=== PATIENT | male | born 1960 | race Caucasian/White ===

== ENCOUNTER 2023-03-29 01:28 | Emergency (ER) | payer OTHER, SELFPAY ==
--- NOTE | ~2023-03-29 | XR_ITS ---
EXAMINATION: XR CHEST CLINICAL INFORMATION: Productive cough. COMPARISON: None available. TECHNIQUE: 2 views of the chest were obtained. FINDINGS: The cardiomediastinal silhouette is within normal limits. There is no focal lung consolidation or pleural effusion. The bony structures and soft tissues are unremarkable. XR/XR chest 2V IMPRESSION: No active cardiopulmonary disease.
[2023-03-29 01:36] VITALS: BP 147/89; PULSE 114; RESP 20; TEMP 36.7; O2SAT 96; BMI 27.3
[2023-03-29 02:02] VITALS: BP 130/83; PULSE 92; RESP 17; TEMP 36.8; O2SAT 97
[2023-03-29 02:12] LABS: COVID-19 Test Negative (Negative); IDNOW Serial# 08D9AD1C
[2023-03-29 02:17] VITALS: O2SAT 98
--- NOTE | 2023-03-29 02:22 | PC.NURSE ---
pt reports having a dry cough, sore throat since Sunday, pt change into hospital attire.
--- OUTSIDE RECORDS SUMMARY | 2023-03-29 02:36 | XMS_ITS | Continuity of Care Document ---
Author Name Unknown Organization [facility] Address [address] [place], [place] [address]jean frausto, [address] [place] [address]- Care Team Providers Care Record Press Tender Name Role Phone Not on Staff, PCP Primary Care Physician Unavail able Encounter [facility] Date(s): 02/21/23 - 03/23/23 [facility] [address] [place] [address] Drive, [address] [place], [place] [address] Attending Physician: Massimo Ram Admitting Physician: Admtr, Ar8 Referring Physician: Admtr, Ar8 Allergies, Adverse Reactions, Alerts Substance Reaction Severity Status Cats Active Pollen Active Immunizations Given and Recorded Vaccine Date Status Refusal Reason SARS-CoV-2 (COVID-19) Ad26 vaccine 1 12/22/20 Give n SARS-CoV-2 (COVID-19) Ad26 vaccine 12/22/20 Record ed tetanus/diphtheria/pertussis, acel(Tdap) 10/20/20 Given 1? Unknown: Resend to [facility]. Problem List Condition Confirmation Course Effective Dates Status H ealth Status Informant Alcohol dependence with withdrawal Confirmed Active Intraparenchymal hemorrhage of brain Confirmed Active Epididymitis Confirmed Active Subdural hematoma Confirmed Active Hypertension Confirmed Active Nicotine dependence Confirmed Active Scrotal pain Confirmed Active Frequent falls Confirmed Active Social History Social History Type Response Tobacco Use: 2 packs daily.. Sex Patient Care team information Care Team Personnel Name: Darcy Gonsalves RN Position: S RN Member Role: Primary Care Nurse Name: Nicole Sweeney RN Position: S RN Member Role: Primary Care Nurse Name: Elizabeth Sutherland RN Position: S RN Supv Member Role: Primary Care Nurse Name: Heather Keyes Position: S RN Member Role: Primary Care Nurse Name: Eri Velasquez Position: S RN Member Role: Primary Care Nurse Name: Kendra Ayala RN Position: [facility] RN Member Role: Primary Care Nurse Name: Dayanara Porter RN Position: [facility] RN Member Role: Primary Care Nurse Name: Dl Gibson RN Position: [facility] RN Member Role: Primary Care Nurse Name: Not on Staff, PCP Position: [facility] Physician (General Medicine) Member Role: PCP Name: Sharri Sosa RN Position: [facility] RN Member Role: Primary Care Nurse Name: Cristofer Augustine Position: [facility] RN Member Role: Primary Care Nurse Name: Rola Whittaker RN Position: [facility] RN Member Role: Primary Care Nurse Name: Sonam Morales RN Position: [facility] RN Member Role: Primary Care Nurse Name: Estelita Sigala RN Position: [facility] RN Member Role: Primary Care Nurse Name: Brianne Gamboa RN Position: [facility] RN Member Role: Primary Care Nurse Care Team Related Persons Name: COLE DIXON Address: [address] [address]
--- OUTSIDE RECORDS SUMMARY | 2023-03-29 02:37 | XMS_ITS | Continuity of Care Document ---
Author Name Unknown Organization [facility] Address [address] [place] [address] [address] frausto, [address] [place] [address]- Care Team Providers Care Senior Management Consultant Name Role Phone Not on Staff, PCP Primary Care Physician Unavail able Encounter [facility] Date(s): 10/31/22 - 11/30/[address], [address] [place], [place] [address] Attending Physician: AdmMassimo donohue Admitting Physician: Admtr, Ar8 Referring Physician: Admtr, Ar8 Allergies, Adverse Reactions, Alerts Substance Reaction Severity Status Cats Active Pollen Active Immunizations Given and Recorded Vaccine Date Status Refusal Reason SARS-CoV-2 (COVID-19) Ad26 vaccine 1 12/22/20 Give n SARS-CoV-2 (COVID-19) Ad26 vaccine 12/22/20 Record ed tetanus/diphtheria/pertussis, acel(Tdap) 10/20/20 Given 1? Unknown: Resend to [facility]. Medications acetaminophen 325 mg oral tablet 650 mg, 2, tablet, By Mouth, Every 6 hours, Refills 0, Maintenance, 10/23/22 15:49:00 EDT, Partial fill upon patient request if the prescription is for a schedule II opioid drug. Start Date: 10/23/22 Status: Ordered aspirin 81 mg oral capsule = 81 mg, By Mouth, Daily, # 30 capsule, 0 Refills, Maintenance, 09/29/22 13:10:00 EDT, Capsule, [facility], Partial fill upon patient request if the prescription is for a schedule II opioid drug., 162, cm, 09/29/22 11:15:00 EDT, Height,... Start Date: 09/29/22 Stop Date: 10/29/22 Status: Ordered Aspirin Tablet 81 mg, By Mouth, Daily, Refills 0, Maintenance, 10/23/22 15:52:00 EDT, Partial fill upon patient request if the prescription is for a schedule II opioid drug. Start Date: 10/23/22 Status: Ordered ceFAZolin 2 g injection = 2 Gm, IV Push, Every 8 hours, 0 Refills, Maintenance, 10/23/22 15:49:00 EDT, Injection, Partial fill upon patient request if the prescription is for a schedule II opioid drug. Start Date: 10/23/22 Status: Ordered cetirizine 1 mg/mL oral syrup 5 mL = 5 mg, By Mouth, Daily, # 50 mL, 0 Refills, Maintenance, 09/29/22 13:10:00 EDT, Syrup, [facility], Partial fill upon patient request if the prescription is for a schedule II opioid drug., 162, cm, 09/29/22 11:15:00 EDT, Height, 65,... Start Date: 09/29/22 Stop Date: 10/09/22 Status: Ordered docusate sodium 100 mg oral capsule 100 mg, 1, capsule, By Mouth, 2 times a day, # 28 capsule, Refills 0, Tot. Refills 0, Maintenance, 09/29/22 13:10:00 EDT, Route to Pharmacy Electronically, [facility], Partial fill uponpatient request if the prescription is for a schedu... Start Date: 09/29/22 Stop Date: 10/13/22 Status: Ordered Docusate Sodium Capsule 100 mg, 1, capsule, By Mouth, 2 times a day, Refills 0, Maintenance, 10/23/22 15:49:00 EDT, Partialfill upon patient request if the prescription is for a schedule II opioid drug. Start Date: 10/23/22 Status: Ordered folic acid 1 mg oral tablet 1 mg, 1, tablet, By Mouth, Daily, # 14 tablet, Refills 0, Tot. Refills 0, Maintenance, 09/29/22 13:10:00 EDT, Route to Pharmacy Electronically, [facility], Partial fill upon patient request if the prescription is for a schedule II opioid... Start Date: 09/29/22 Stop Date: 10/13/22 Status: Ordered folic acid 1 mg oral tablet 1 mg, 1, tablet, By Mouth, Daily, Refills 0, Maintenance, 10/23/22 15:49:00 EDT, Partial fill upon patient request if the prescription is for a schedule II opioid drug. Start Date: 10/23/22 Status: Ordered gabapentin 300 mg oral capsule 300 mg, 1, capsule, By Mouth, 3 times a day, Refills 0, Maintenance, 10/23/22 15:50:00 EDT, Partialfill upon patient request if the prescription is for a schedule II opioid drug. Start Date: 10/23/22 Status: Ordered lactulose 10 gm/15 ml oral syrup 30 mL = 20 Gm, By Mouth, 3 times a day, 0 Refills, Maintenance, 10/23/22 15:50:00 EDT, Syrup, Partial fill upon patient request if the prescription is for a schedule II opioid drug. Start Date: 10/23/22 Status: Ordered multivitamin Multiple Vitamins oral tablet 1 tablet, By Mouth, Daily, # 30 tablet, 0 Refills, Maintenance, 09/29/22 13:10:00 EDT, Tablet, [facility], Partial fill upon patient request if the prescription is for a schedule II opioid drug., 1 tablet By Mouth Daily,x30 days, 162, cm... Start Date: 09/29/22 Stop Date: 10/29/22 Status: Ordered Multivitamin Tablet 1 tablet, By Mouth, Daily, 0 Refills, Maintenance, 10/23/22 15:50:00 EDT, Tablet, Partial fill uponpatient request if the prescription is for a schedule II opioid drug. Start Date: 10/23/22 Status: Ordered Oxycodone See Instructions, 0 Refills, Maintenance, 10/31/22 14:51:00 EDT, Partial fill upon patient request if the prescription is for a schedule II opioid drug. Start Date: 10/31/22 Status: Ordered tiZANidine 4 mg oral tablet 4 mg, 1, tablet, By Mouth, Every 8 hours, # 21 tablet, Refills 0, Tot. Refills 0, Maintenance, 09/29/22 13:10:00 EDT, Route to Pharmacy Electronically, [facility], Partial fill upon patient request if the prescription is for a schedule I... Start Date: 09/29/22 Stop Date: 10/06/22 Status: Ordered Problem List Condition Confirmation Course Effective Dates Status H ealth Status Informant Intraparenchymal hemorrhage of brain Confirmed Active Social History Social History Type Response Tobacco Use: 2 packs daily.. Sex Patient Care team information Care Team Personnel Name: Nicole Sweeney RN Position: S RN Member Role: Primary Care Nurse Name: Heather Keyes Position: S RN Member Role: Primary Care Nurse Name: Eri Velasquez Position: S RN Member Role: Primary Care Nurse Name: Kendra Ayala RN Position: S RN Member Role: Primary Care Nurse Name: Tanya Howell RN Position: [facility] RN Member Role: Primary Care Nurse Name: Dayanara Porter RN Position: [facility] RN Member Role: Primary Care Nurse Name: Dl Gibson RN Position: [facility] RN Member Role: Primary Care Nurse Name: Not on Staff, PCP Position: [facility] Physician (General Medicine) Member Role: PCP Name: Sharri Sosa RN Position: [facility] RN Member Role: Primary Care Nurse Name: Cristofer Augustine Position: [facility] RN Member Role: Primary Care Nurse Name: Rola Whittaker RN Position: [facility] RN Member Role: Primary Care Nurse Name: Estelita Sigala RN Position: [facility] RN Member Role: Primary Care Nurse Name: Brianne Gamboa RN Position: [facility] RN Member Role: Primary Care Nurse Care Team Related Persons Name: COLE DIXON Address: [address] [address]
--- OUTSIDE RECORDS SUMMARY | 2023-03-29 02:37 | XMS_ITS | Continuity of Care Document ---
Author Name Unknown Organization [facility] Address [address] [place] [address] [address] [place] [address]- Care Team Providers Care Bareback Rider Name Role Phone Samuel Cruz MD Primary Care Physician Encounter [facility] Date(s): 05/10/22 - 06/23/[address] [place], [place] [address] Attending Physician: Clair TURNER, Deepak Dubois Allergies, Adverse Reactions, Alerts Substance Reaction Severity Status Cats Active Pollen Active Immunizations Given and Recorded Vaccine Date Status Refusal Reason SARS-CoV-2 (COVID-19) Ad26 vaccine 1 12/22/20 Give n tetanus/diphtheria/pertussis, acel(Tdap) 10/20/20 Given 1? Unknown: Resend to [facility]. Medications gabapentin 100 mg oral capsule 100 mg, 1, capsule, By Mouth, 3 times a day, # 42 capsule, Refills 0, Tot. Refills 0, Maintenance, 05/10/22 9:04:00 EST, Route to Pharmacy Electronically, [facility], Partial fill upon patient request if the prescription is for a schedul... Start Date: 05/10/22 Stop Date: 05/24/22 Status: Ordered Ibuprofen 800 mg, By Mouth, taking for rib pain, Refills 0, Maintenance, 05/31/22 12:20:00 EST, Partial fill upon patient request if the prescription is for a schedule II opioid drug. Start Date: 05/31/22 Status: Ordered Problem List Condition Confirmation Course Effective Dates Status H ealth Status Informant Intraparenchymal hemorrhage of brain Confirmed Active Social History Social History Type Response Tobacco Use: 2 packs daily.. Sex Patient Care team information Care Team Personnel Name: Eri Velasquez Position: S RN Member Role: Primary Care Nurse Name: Samuel Cruz MD Position: [facility] Primary Care Physician Member Role: PCP Address: Address: [address] [facility] [facility], [address] [facility], [place] [address]- Care Team Related Persons Name: COLE DIXON Address: [address] [address] [place] [id number]
--- OUTSIDE RECORDS SUMMARY | 2023-03-29 02:37 | XMS_ITS | Continuity of Care Document ---
Author Name Unknown Organization [facility] ter Address [address] [place] [id number]- Care Team Providers Care Form Coverer Name Role Phone Not on Staff, PCP Primary Care Physician Unavail able Encounter [facility] Date(s): 10/04/22 - 10/23/[address] [address]- Encounter Diagnosis Head injury(Final) - 10/04/22 Scalp laceration(Final) - 10/04/22 Discharge Disposition: A-Transfer SNF Attending Physician: Rosi Harper MD Admitting Physician: Rosi Harper MD Referring Physician: Not on Staff, Referring MD Allergies, Adverse Reactions, Alerts No Known Medication Allergies Substance Reaction Severity Status Pollen Active Immunizations Given and Recorded Vaccine Date Status Refusal Reason SARS-CoV-2 (COVID-19) Ad26 vaccine 12/22/20 Record ed Medications acetaminophen 325 mg oral tablet 650 mg, 2, tablet, By Mouth, Every 6 hours, Refills 0, Maintenance, 10/23/22 15:49:00 EDT, Partial fill upon patient request if the prescription is for a schedule II opioid drug. Start Date: 10/23/22 Status: Ordered Aspirin Tablet 81 mg, By [...] opioid drug. Start Date: 10/23/22 Status: Ordered Docusate Sodium Capsule 100 mg, [...] gabapentin 300 mg oral capsule 300 mg, Capsule, By Mouth, 10/23/22 15:00:00 EDT Start Date: 10/23/22 Stop Date: 10/23/22 Status: Completed gabapentin 300 mg oral capsule 300 mg, [...] opioid drug. Start Date: 10/23/22 Status: Ordered Multivitamin Tablet 1 tablet, By Mouth, Daily, 0 Refills, Maintenance, 10/23/22 15:50:00 EDT, Tablet, Partial fill uponpatient request if the prescription is for a schedule II opioid drug. Start Date: 10/23/22 Status: Ordered oxyCODONE 5 mg oral tablet 5 mg, Tablet, By Mouth, Every 4 hours, PRN for Pain , Severe, Routine, 10/18/22 7:39:00 EDT Start Date: 10/18/22 Stop Date: 10/25/22 Status: Ordered oxyCODONE 5 mg oral tablet 5 mg, 1, tablet, By Mouth, Every 4 hours, PRN, # 10 tablet, Refills 0, Tot. Refills 0, Acute 10/29/22 15:51:00 EDT, Pain , Severe, 10/23/22 15:50:00 EDT, Print Requisition, Partial fill upon patient request if the prescription is for a schedule II opi... Start Date: 10/23/22 Stop Date: 10/29/22 Status: Ordered Results Orders for Microbiology Reports Name Date Blood Culture 10/17/22 Blood Culture #2 10/17/22 Blood Culture 10/16/22 Blood Culture 10/16/22 Blood Culture #2 10/16/22 Anaerobic Culture (ANAEROBIC CULTURE) 10/14/22 Tissue Culture w/ Gram Smear (TISSUE/BIO PSY CULT.) 10/14/22 Anaerobic Culture (ANAEROBIC CULTURE) 10/14/22 Sterile Body Fluid Culture W/ Gram Smear (STERILE FLUID CULT.) 10/14/22 Blood Culture 10/14/22 Microbiology Reports (Most Recent Ten) TEST:Blood Culture, Second Order STATUS:Auth (Verified) BODY SITE: SOURCE:Blood COLLECTED DATE/TIME:10/17/22 9:21 AM Blood Culture, Second Order SPECIMEN DESCRIPTION : BLOOD R ARM SPECIAL REQUESTS : NONE CULTURE : NO GROWTH 5 DAYS. REPORT STATUS : FINAL 10/22/2022 TEST:Blood Culture STATUS:Auth (Verified) BODY SITE: SOURCE:Blood COLLECTED DATE/TIME:10/17/22 7:11 AM Blood Culture SPECIMEN DESCRIPTION : BLOOD right hand SPECIAL REQUESTS : NONE CULTURE : NO GROWTH 5 DAYS. REPORT STATUS : FINAL 10/22/2022 TEST:Blood Culture STATUS:Auth (Verified) BODY SITE: SOURCE:Blood COLLECTED DATE/TIME:10/16/22 7:14 PM Blood Culture SPECIMEN DESCRIPTION : BLOOD RIGHT HAND SPECIAL REQUESTS : NONE CULTURE : NO GROWTH 5 DAYS. REPORT STATUS : FINAL 10/21/2022 TEST:Blood Culture, Second Order STATUS:Auth (Verified) BODY SITE: SOURCE:Blood COLLECTED DATE/TIME:10/16/22 2:00 AM Blood Culture, Second Order SPECIMEN DESCRIPTION : BLOOD RIGHT ARM SPECIAL REQUESTS : NONE CULTURE : NO GROWTH 5 DAYS. REPORT STATUS : FINAL 10/21/2022 TEST:Blood Culture STATUS:Auth (Verified) BODY SITE: SOURCE:Blood COLLECTED DATE/TIME:10/16/22 1:21 AM Blood Culture SPECIMEN DESCRIPTION : BLOOD RIGHT ARM SPECIAL REQUESTS : NONE CULTURE : NO GROWTH 5 DAYS. REPORT STATUS : FINAL 10/21/2022 TEST:Anaerobic Culture STATUS:Auth (Verified) BODY SITE: SOURCE:TISSUE1 COLLECTED DATE/TIME:10/14/22 9:10 AM Anaerobic Culture SPECIMEN DESCRIPTION : TISSUE SPECIAL REQUESTS : NONE CULTURE : NO ANAEROBES ISOLATED REPORT STATUS : FINAL 10/16/2022 TEST:Tissue/Biopsy Culture STATUS:Auth (Verified) BODY SITE: SOURCE:TISSUE1 COLLECTED DATE/TIME:10/14/22 9:10 AM Tissue/Biopsy Culture SPECIMEN DESCRIPTION : TISSUE SPECIAL REQUESTS : NONE GRAM STAIN : 2+ WHITE BLOOD CELLS 1+ TISSUE CELLS NO ORGANISMS SEEN CULTURE : 3+ STAPHYLOCOCCUS AUREUS. This isolate was identified using Maldi-TOF system These AST results were performed on the Microscan ID and AST system CRITICAL VALUE CALLED AND VERIFIED BY READBACK FOR: [place] [id number] AT SW5 BY TECH 27 OB 10/15/22 AT 1025. REPORT STATUS : FINAL 10/16/2022 ORGANISM 3+ STAPHYLOCOCCUS AUREUS. This isolate was identified using Maldi-TOF system These AST results were performed on the Microscan ID and AST system METHOD MIN. INHIB. CONC. (MCG/ML) CIPROFLOXACIN SUSCEPTIBLE CLINDAMYCIN SUSCEPTIBLE ERYTHROMYCIN SUSCEPTIBLE LEVOFLOXACIN SUSCEPTIBLE OXACILLIN SUSCEPTIBLE PENICILLIN RESISTANT RIFAMPIN SUSCEPTIBLE RIFAMPIN RIFAMPIN SHOULD NOT BE USED ALONE FOR ANTIMICROBIAL RIFAMPIN THERAPY. TETRACYCLINE SUSCEPTIBLE TRIMETH/SULFAMETHOX SUSCEPTIBLE VANCOMYCIN SUSCEPTIBLE TEST:Anaerobic Culture STATUS:Auth (Verified) BODY SITE: SOURCE:FLUID COLLECTED DATE/TIME:10/14/22 9:00 AM Anaerobic Culture SPECIMEN DESCRIPTION : FLUID SPECIAL REQUESTS : NONE CULTURE : NO ANAEROBES ISOLATED REPORT STATUS : FINAL 10/19/2022 TEST:Sterile Fluid Culture STATUS:Auth (Verified) BODY SITE: SOURCE:FLUID COLLECTED DATE/TIME:10/14/22 9:00 AM Sterile Fluid Culture SPECIMEN DESCRIPTION : FLUID SPECIAL REQUESTS : NONE GRAM STAIN : 2+ WHITE BLOOD CELLS 1+ TISSUE CELLS NO ORGANISMS SEEN CULTURE : 2+ STAPHYLOCOCCUS AUREUS. This isolate was identified using Maldi-TOF system These AST results were performed on the Microscan ID and AST system CRITICAL VALUE CALLED AND VERIFIED BY READBACK FOR: [place] [id number] AT SW5 BY TECH 27 ON 10/15/22 AT 1030. REPORT STATUS : FINAL 10/16/2022 ORGANISM 2+ STAPHYLOCOCCUS AUREUS. This isolate was identified using Maldi-TOF system These AST results were performed on the Microscan ID and AST system METHOD MIN. INHIB. CONC. (MCG/ML) CIPROFLOXACIN SUSCEPTIBLE CLINDAMYCIN SUSCEPTIBLE ERYTHROMYCIN SUSCEPTIBLE LEVOFLOXACIN SUSCEPTIBLE OXACILLIN SUSCEPTIBLE PENICILLIN RESISTANT RIFAMPIN SUSCEPTIBLE RIFAMPIN RIFAMPIN SHOULD NOT BE USED ALONE FOR ANTIMICROBIAL RIFAMPIN THERAPY. TETRACYCLINE SUSCEPTIBLE TRIMETH/SULFAMETHOX SUSCEPTIBLE VANCOMYCIN SUSCEPTIBLE TEST:Blood Culture STATUS:Auth (Verified) BODY SITE: SOURCE:Blood COLLECTED DATE/TIME:10/14/22 3:03 AM Blood Culture SPECIMEN DESCRIPTION : BLOOD RT ARM SPECIAL REQUESTS : CRITICAL VALUE CALLED AND VERIFIED BY READBACK FOR: GRAM POSITIVE COCCI CALLED TO [id number] [facility] ON 10/15/22 0056 BY BIBA [employer] CULTURE : STAPHYLOCOCCUS AUREUS. These AST results were performed on the Microscan ID and AST system S. aureus was identified by multiplex PCR. mecA NOT detected. The absence of the mecA gene is associated with susceptibility to methicillin (MSSA). REPORT STATUS : FINAL 10/17/2022 ORGANISM STAPHYLOCOCCUS AUREUS. These AST results were performed on the Microscan ID and AST system METHOD MIN. INHIB. CONC. (MCG/ML) CIPROFLOXACIN SUSCEPTIBLE CLINDAMYCIN SUSCEPTIBLE ERYTHROMYCIN SUSCEPTIBLE LEVOFLOXACIN SUSCEPTIBLE OXACILLIN SUSCEPTIBLE PENICILLIN RESISTANT RIFAMPIN SUSCEPTIBLE RIFAMPIN RIFAMPIN SHOULD NOT BE USED ALONE FOR ANTIMICROBIAL RIFAMPIN THERAPY. TETRACYCLINE SUSCEPTIBLE TRIMETH/SULFAMETHOX SUSCEPTIBLE VANCOMYCIN SUSCEPTIBLE Radiology Reports (Most Recent Ten) * Exam Date Time Procedure Performing Provider Status 10/22/22 11:52 AM US Doppler Ext Lower Venous Bilat Nicole Sanchez; Auth (Verified) Notes: (US Doppler Ext Lower Venous Bilat) Reason For Exam: pain;Pain/Tenderness Extremities RESULT: US Doppler Ext Lower Venous Bilat US Doppler Ext Lower Venous Bilat Reason: Pain Tenderness Extremities; pain; Clinical Question(s): Other: COMPARISON: None IMAGING TECHNIQUE: Ultrasound of the veins from the groin through the calf was performed using grayscale, color, and spectral Doppler ultrasound assessing for complete compressibility and normal flowcharacteristics. FINDINGS: RIGHT LOWER EXTREMITY: Common femoral vein: Patent. No thrombosis. Femoral vein: Patent. No thrombosis. Popliteal vein: Patent. No thrombosis. Gastrocnemius veins: The visualized portions are patent without evidence of thrombosis. Peroneal veins: The visualized portions are patent without evidence of thrombosis. Posterior tibial veins: The visualized portions are patent without evidence of thrombosis. LEFT LOWER EXTREMITY: Common femoral vein: Patent. No thrombosis. Femoral vein: Patent. No thrombosis. Popliteal vein: Patent. No thrombosis. Gastrocnemius veins: The visualized portions are patent without evidence of thrombosis. Peroneal veins: The visualized portions are patent without evidence of thrombosis. Posterior tibial veins: The visualized portions are patent without evidence of thrombosis. OTHER FINDINGS: None. IMPRESSION: No evidence of deep venous thrombosis. WSN: [id number] Ordering Physician: David Collado Dictated By: Juan Vivas MD Dictated Date/Time: 10/22/22 12:03 p Reviewed By: Juan Vivas MD Signed By: Juan Vivas MD Signed Date/Time: 10/22/22 12:03 pm Transcribed By: JACKY Transcribed Date/Time: 10/22/22 12:02 pm * Exam Date Time Procedure Performing Provider Status 10/21/22 6:55 AM Chest 2 Views Frontal and Lat Ilene Alexander; Auth (Verified) Notes: (Chest 2 Views Frontal and Lat) Reason For Exam: Postop RESULT: Chest 2 Views Frontal and Lat Chest 2 Views Frontal and Lat Reason: Postop; Clinical Question(s): Pleural Effusion COMPARISON: Multiple prior chest x-rays, the most recent of which is dated 10/20/2022. FINDINGS: LINES AND TUBES: There is a right PICC with tip in the proximal SVC. LUNGS AND PLEURA: Small left pleural effusion with adjacent left lower lobar opacity is not significantly changed. Nopneumothorax. HEART, MEDIASTINUM AND IDALIA: Heart is normal in size. Normal mediastinal and hilar contour. BONES AND SOFT TISSUES: No acute abnormality. Mild degenerative changes seen in the spine. IMPRESSION: 1. Right PICC with tip in the proximal SVC. 2. Otherwise no change with small left pleural effusion with adjacent density which may reflect atelectasis or pneumonia. WSN: [id number] Ordering Physician: Pat Rome Dictated By: Shwetha Thomson MD Dictated Date/Time: 10/21/22 7:38 am Reviewed By: Shwetha Thomson MD Signed By: Shwetha Thomson MD Signed Date/Time: 10/21/22 7:38 am Transcribed By: JACKY Transcribed Date/Time: 10/21/22 7:33 am * Exam Date Time Procedure Performing Provider Status 10/20/22 6:34 AM Chest 2 Views Frontal and Lat Vilma Lu; Auth (Verified) Notes: (Chest 2 Views Frontal and Lat) Reason For Exam: Postop RESULT: Chest 2 Views Frontal and Lat Chest 2 Views Frontal and Lat Reason: Postop; Clinical Question(s): Pleural Effusion COMPARISON: 10/19/2022 FINDINGS: Grossly no change in the right arm PICC line which is difficult to see over the mediastinum. The left thoracostomy tube has been removed. Left basilar and lingular consolidation is stable. IMPRESSION: Left thoracostomy tube has been removed. No evidence of pneumothorax. Left pleural-parenchymal disease hasn't changed WSN: [id number] Ordering Physician: Shwetha Panda Dictated By: Juan Keene MD Dictated Date/Time: 10/20/22 8:45 am Reviewed By: Juan Keene MD Signed By: Juan Keene MD Signed Date/Time: 10/20/22 8:45 am Transcribed By: JACKY Transcribed Date/Time: 10/20/22 8:42 am * Exam Date Time Procedure Performing Provider Status 10/19/22 6:01 AM Chest 2 Views Frontal and Lat Antoni Lu (Verified) Notes: (Chest 2 Views Frontal and Lat) Reason For Exam: Postop RESULT: Chest 2 Views Frontal and Lat Chest 2 Views Frontal and Lat Reason: Postop; Clinical Question(s): Pleural Effusion COMPARISON: Several priors most recently 10/18/2022 FINDINGS: LINES AND TUBES: Interval removal of the more cephalad of the 2 left chest tubes. Interval placement of a right PICCline, tip in region of SVC. LUNGS AND PLEURA: Continued opacity at the left base due to a combination of lower lobe atelectasis and pleural effusion. Right lung pleural space remain clear. No pneumothorax. HEART, MEDIASTINUM AND IDALIA: Heart is normal in size. Normal mediastinal and hilar contour. BONES AND SOFT TISSUES: Multiple bilateral rib fractures again noted. IMPRESSION: 1. Interval removal of one of the 2 left chest tubes without evidence for pneumothorax. Stable pleural/parenchymal changes in the left lower hemithorax. 2. Interval placement right PICC line with tip in SVC. WSN: [id number] Ordering Physician: Shwetha Panda Dictated By: Porfirio Rich MD Dictated Date/Time: 10/19/22 11:28 a Reviewed By: Porfirio Rich MD Signed By: Porfirio Rich MD Signed Date/Time: 10/19/22 11:28 am Transcribed By: JACKY Transcribed Date/Time: 10/19/22 11:22 am * Exam Date Time Procedure Performing Provider Status 10/18/22 1:01 PM Modified Barium Swal low W/ Speech (Radio Liz Bourgeois; Auth (Verified) Notes: (Modified Barium Swallow W/ Speech (Radio) Reason For Exam: Aspiration RESULT: Modified Barium Swallow W/ Speech (Radio Modified Barium Swallow W/ Speech (Radio WITH SPEECH PATHOLOGY CLINICAL INDICATION: Aspiration; Clinical Question(s): Aspiration; Modified Barium Swallow W Speech(Radiology) Prep COMPARISON: None Technique: Lateral cine-videofluoroscopy was performed during the oral administration of various barium containing consistencies, as described below. Fluoroscopic imaging provided by Amy Duvall CNP Pulsed fluoroscopy time: 2.3 minutes Dose Area Product (DAP): 116.7 uGy*m2 Findings: Applesauce, pudding, nectar, mixed fruit/juice and thin barium consistencies were tested. Applesauce: No laryngeal penetration or subglottic aspiration. Pudding: No laryngeal penetration or subglottic aspiration Sorgho: No laryngeal penetration or subglottic aspiration Mixed fruit and juice: No laryngeal penetration or subglottic aspiration Thin barium: There was laryngeal penetration of thin liquids, with deep penetration noted on at least one swallow. Vallecular pooling of thin liquids with penetration noted upon prompted attempts to clear the residuals. No aspiration of thin liquids. IMPRESSION: Laryngeal penetration of thin liquids as described. For dietary concerns or recommendations, please refer to speech pathologist report. By undersigning and finalizing the report, the attending radiologist confirms he/she has personallyreviewed and interpreted the images and agrees with the description of the findings. I have personally reviewed the images and I agree with this report. WSN: [id number] Ordering Physician: August Dictated By: Allyson Duvall NP Dictated Date/Time: 10/19/22 11:38 a Reviewed By: Shwetha Thomson MD Signed By: Shwetha Thomson MD Signed Date/Time: 10/19/22 11:43 am Transcribed By: JACKY Transcribed Date/Time: 10/18/22 12:06 pm * Exam Date Time Procedure Performing Provider Status 10/18/22 6:01 AM Chest 2 Views Frontal and Lat Simona Yoder; Auth (Verified) Notes: (Chest 2 Views Frontal and Lat) Reason For Exam: Other: RESULT: Chest 2 Views Frontal and Lat Chest 2 Views Frontal and Lat Reason: Other:; Clinical Question(s): Trauma COMPARISON: 10/17/2022 FINDINGS: LINES AND TUBES: Unchanged left apically directed chest tubes. LUNGS AND PLEURA: Change small left pleural effusion and associated atelectasis. Right hemithorax is clear. No pneumothorax. HEART, MEDIASTINUM AND IDALIA: Unchanged. BONES AND SOFT TISSUES: Unchanged bilateral minimally displaced rib fractures. IMPRESSION: Stable examination. I have personally reviewed the images and I agree with this report. WSN: [id number] Ordering Physician: Shwetha Panda Dictated By: Juve Moran DO Dictated Date/Time: 10/18/22 10:53 a Reviewed By: Marco Nye MD Signed By: Marco Nye MD Signed Date/Time: 10/18/22 10:58 am Transcribed By: JACKY Transcribed Date/Time: 10/18/22 9:28 am * Exam Date Time Procedure Performing Provider Status 10/17/22 12:[address] Chest W/ Contrast Oxana Snyder; Auth (Verified) Notes: (CT Chest W/ Contrast) Reason For Exam: Infection RESULT: CT Chest W/ Contrast CT Chest W/ Contrast INDICATION: Reason: Infection; Clinical Question(s): Abscess Empyema; Order Comment: TECHNIQUE: Helical CT scan of the chest with IV contrast, formatted in 3 planes. 75 cc of [id number] was administered intravenously. Weight-based protocol was performed using automatic exposure control. CTDIvol Body: 5.70 mGy, DLP Body: 223 mGy*cm. COMPARISON: CT chest with contrast 10/13/2022. FINDINGS: Paint Pourer view findings, lines and tubes: There are 2 apically directed left large bore pleural catheter is Trachea and airways: There is a moderate amount of debris within the left lower lobe bronchi with multifocal areas of airway plugging. There is resultant left lower lobe collapse. Lungs and pleura: Complete consolidation of the left lower lobe, unchanged from the prior exam. Hasbeen slight improved aeration of the left upper lobe and lingula. A small amount of ill-defined atelectasis and consolidation involving the inferior lingula remains. Trace-small left hydropneumothorax with a small volume of loculated fluid along the posteromedial margin and a few tiny punctate fociof gas within the fluid (26/201). There are also a few small locules along the left inferolateral hemithorax (61/201). No abnormal pleural enhancement to suggest empyema. Mild background centrilobular emphysema. No focal consolidation involving the right lung. Minimal scarring or atelectasis in the medial right upper lobe. Mediastinum and idalia: No mass or hematoma. Similar appearance of increased number of mediastinal and left hilar lymph nodes which are most likely reactive these include a 1.1cm subcarinal lymph node (46/201). No esophageal abnormality. Heart: Heart is at the upper limits of normal for size. No pericardial effusion. Aorta: Mild vascular calcification but no aneurysm. Four-vessel aortic arch, normal variant. Pulmonary arteries: Normal caliber. No evidence of pulmonary embolism on this study performed without angiographic technique. Chest wall soft tissues: Scattered areas of soft tissue gas in the left lateral chest wall, though decreased from the prior study. No abnormal fluid collection or abscess. Diaphragm: Intact. Upper abdomen: No significant abnormality. Bones: Unchanged. Duration and distribution of bilateral rib fractures involving ribs 3-10 on the left and 5-12 subacute fractures on the right, with an acute fracture of the posterior right eighth rib. Old healed right mid clavicle fracture. IMPRESSION: 1. Decreased now trace-small volume left hydropneumothorax. No evidence of empyema. 2. Persistent left lower lobe collapse with significant debris within the left lower lobe bronchi. Consider further assessment with bronchoscopy. 3. Improved aeration of the left upper lobe and lingula with a small amount of residual atelectasisin the inferior lingula and dependent portions of the left upper lobe. 4. Mild background centrilobular emphysema. 5. Decreased left lateral chest wall soft tissue emphysema. 6. No interval change in multiple bilateral rib fractures. WSN: [id number] Ordering Physician: Shwetha Panda Dictated By: David Navarro MD Dictated Date/Time: 10/17/22 1:29 pm Reviewed By: David Navarro MD Signed By: David Navarro MD Signed Date/Time: 10/17/22 1:29 pm Transcribed By: JACKY Transcribed Date/Time: 10/17/22 1:11 pm * Exam Date Time Procedure Performing Provider Status 10/17/22 6:13 AM Chest 2 Views Frontal and Lat Simona Yoder; Auth (Verified) Notes: (Chest 2 Views Frontal and Lat) Reason For Exam: Other: RESULT: Chest 2 Views Frontal and Lat Chest 2 Views Frontal and Lat REASON: Trauma COMPARISON: Multiple priors, most recent from 10/16/[address] chest from 10/13/22. FINDINGS: LINES AND TUBES: Unchanged 2 apically oriented left chest tubes. LUNGS AND PLEURA: Small left pleural effusion with overlying atelectasis. No focal consolidation. HEART, MEDIASTINUM AND IDALIA: Heart is normal in size. Normal mediastinal and hilar contour. BONES AND SOFT TISSUES: Unchanged subcutaneous emphysema along the left chest wall. Unchanged chronic appearing right posterior sixth, and seventh rib fractures. Unchanged chronic appearing distal right clavicular fracture.Acute mildly displaced left posterior third, fourth, fifth, sixth, seventh rib fractures. These arebetter visualized on the CT chest from 10/13/2022. IMPRESSION: 1. Unchanged left pleural effusion with left lower lobe atelectasis/resolving contusion. 2. Unchanged multiple left rib fractures and chronic right rib fractures, better visualized on the CT chest. I have personally reviewed the images and I agree with this report. WSN: [id number] Ordering Physician: Courtney Smith Dictated By: Roxanna Grimm MD Dictated Date/Time: 10/17/22 11:20 a Reviewed By: Martinez Barajas MD Signed By: Martinez Barajas MD Signed Date/Time: 10/17/22 11:25 am Transcribed By: JACKY Transcribed Date/Time: 10/17/22 10:57 am * Exam Date Time Procedure Performing Provider Status 10/16/22 5:56 AM Chest 2 Views Frontal and Lat Simona Yoder; Auth (Verified) Notes: (Chest 2 Views Frontal and Lat) Reason For Exam: Rib fx f/u ?pneumo;Other: RESULT: Chest 2 Views Frontal and Lat Chest 2 Views Frontal and Lat REASON: Rib fx f u pleural effusion and Pneumothorax COMPARISON: Multiple priors, most recent 10/15/2022. CT chest 10/13/2022. FINDINGS: LINES AND TUBES: Two left apically directed chest tubes are unchanged. LUNGS AND PLEURA: Unchanged loculated left effusion. Left apical scarring with probable trace pneumothorax, decreasedfrom 10/13/2022. Right lung is clear. No pleural effusion or pneumothorax. HEART, MEDIASTINUM AND IDALIA: Heart is normal in size. Aorta is mildly calcified. BONES AND SOFT TISSUES: Unchanged mildly displaced left rib fractures. Unchanged mild left chest wall soft tissue emphysema. IMPRESSION: No significant change. I have personally reviewed the images and I agree with this report. WSN: [id number] Ordering Physician: Carlitos Hayes Dictated By: Mary Hernandez DO Dictated Date/Time: 10/16/22 9:57 am Reviewed By: Leodan Angulo MD Signed By: Leodan Angulo MD Signed Date/Time: 10/16/22 10:02 am Transcribed By: JACKY Transcribed Date/Time: 10/16/22 9:57 am * Exam Date Time Procedure Performing Provider Status 10/15/22 6:53 AM Chest 2 Views Frontal and Lat Nicole Munoz; Otis (Verified) Notes: (Chest 2 Views Frontal and Lat) Reason For Exam: Postop RESULT: Chest 2 Views Frontal and Lat Chest 2 Views Frontal and Lat Reason: Postop; Clinical Question(s): Pleural Effusion COMPARISON: Multiple prior chest x-rays, the most recent of which is dated 10/14/2022. FINDINGS: LINES AND TUBES: 2 apically oriented left chest tubes are seen. LUNGS AND PLEURA: Trace left pleural fluid remains with left basilar density unchanged. No pneumothorax. HEART, MEDIASTINUM AND IDALIA: Heart is normal in size. Normal mediastinal and hilar contour. BONES AND SOFT TISSUES: Left rib fractures are again seen. Healed deformity of multiple right ribs and chronic deformity right clavicle. Subcutaneous emphysema seen along the left chest wall. IMPRESSION: Trace left pleural effusion with unchanged left basilar density which may reflect atelectasis or contusion. No pneumothorax. WSN: [id number] Ordering Physician: Pat Rome Dictated By: Shwetha Thomson MD Dictated Date/Time: 10/15/22 7:46 am Reviewed By: Shwetha Thomson MD Signed By: Shwetha Thomson MD Signed Date/Time: 10/15/22 7:46 am Transcribed By: JACKY Transcribed Date/Time: 10/15/22 7:38 am Vital Signs Most recent to oldest [Reference Range]: 1 2 3 Height 163 cm (10/23/22 2:55 PM) 163 cm (10/23/22 11:44 AM) 163 cm (10/23/22 4:44 AM) Weight 55.1 kg (10/17/22 2:00 AM) 59.8 kg (10/14/22 7:09 AM) 59.8 kg (10/09/22 6:00 AM) Oxygen Saturation [94-100 %] 96 % (10/23/22 2:55 PM) 97 % (10/23/22 11:44 AM) 97 % (10/23/22 8:00 AM) Pulse Rate [55-90 bpm] 111 bpm *H* (10/23/22 2:55 PM) 103 bpm *H* (10/23/22 11:44 AM) 106 bpm *H* (10/23/22 8:00 AM) Body Mass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 and Lat 10/04/2022 20:[address] Head/Brain W/O Contrast CT Head/Brain W/O Contrast CT Chest W/ Contrast CT Chest W/ Contrast CT Cervical Spine W/O Contrast CT Cervical Spine W/O Contrast CT Abd/Pelvis W/ IV Contrast Only CT Abd/Pelvis W/ IV Contrast Only 10/04/2022 20:32 EDT Chest Portable XR Chest Portable . US Doppler Ext Lower Venous Bilat Event Date: 10/22/2022 11:52:51 EDT Updated: 10/22/2022 12:06 EDT US Doppler Ext Lower Venous Bilat This document has an image Reason For Exam pain;Pain/Tenderness Extremities RESULT: US Doppler Ext Lower Venous Bilat US Doppler Ext Lower Venous Bilat Reason: Pain Tenderness Extremities; pain; Clinical Question(s): Other: COMPARISON: None IMAGING TECHNIQUE: Ultrasound of the veins from the groin through the calf was performed using grayscale, color, and spectral Doppler ultrasound assessing for complete compressibility and normal flowcharacteristics. FINDINGS: RIGHT LOWER EXTREMITY: Common femoral vein: Patent. No thrombosis. Femoral vein: Patent. No thrombosis. Popliteal vein: Patent. No thrombosis. Gastrocnemius veins: The visualized portions are patent without evidence of thrombosis. Peroneal veins: The visualized portions are patent without evidence of thrombosis. Posterior tibial veins: The visualized portions are patent without evidence of thrombosis. LEFT LOWER EXTREMITY: Common femoral vein: Patent. No thrombosis. Femoral vein: Patent. No thrombosis. Popliteal vein: Patent. No thrombosis. Gastrocnemius veins: The visualized portions are patent without evidence of thrombosis. Peroneal veins: The visualized portions are patent without evidence of thrombosis. Posterior tibial veins: The visualized portions are patent without evidence of thrombosis. OTHER FINDINGS: None. IMPRESSION: No evidence of deep venous thrombosis. WSN: [id number] Ordering Physician: David Collado Signature Line Dictated By: Juan Vivas MD Dictated Date/Time: 10/22/22 12:03 p Reviewed By: Juan Vivas MD Signed By: Juan Vivas MD Signed Date/Time: 10/22/22 12:03 pm Transcribed By: CSDionisio Transcribed Date/Time: 10/22/22 12:02 pm US Doppler Ext Lower Venous Bilat Discharge Plan Discharge Disposition Discharge: Rehab. * Sydney Beavers: PERFORM, SIGN, VERIFY Event Display: Case Management Discharge Plan Authored Date: [id number] Patient: HALLIE DIXON Age: 62 years Sex: Male : 1960 Associated Diagnoses: None Author: Sydney Beavers Discharge Plan Case Management Discharge Plan : Case Management Discharge Plan Data 10/23/2022 15:27 EDT Discharge Level of Care at Discharge alf facility Discharge Nursing Homes/Rehab Facilities [facility] Discharge Transportation Arranged [facility] [address] [place], [place] [id number] [phone] Discharge Arranged Transport Date/Time 10/17/2022 17:00 Mode of Transportation Arranged Chair Van Name of Person Notified of Transfer DC Plan delivered to pt at bedside * Brianne Gamboa RN: PERFORM Event Display: Patient Education/Instruction Authored Date: [id number] Inpatient Adult Discharge Instructions [address] [address] Name: HALLIE DIXON : 1960 Visit: 10/04/2022 21:58:00 Current Date: 10/23/2022 17:03 Account: [id number] Inpatient Adult Discharge Instructions We would like to thank you for allowing us to assist you with your healthcare needs. The following includes patient education materials and information regarding your injury/illness. Our entire staffstrives to provide an excellent experience for our patients and their families. PLEASE ENSURE YOU FOLLOW-UP PER THE INSTRUCTIONS BELOW! ?? YOUR OPINION IS IMPORTANT TO US! Please complete the survey you may receive by mail or email. Your feedback will be used to make improvements to the healthcare experiences of our patients and their families. Surveys are administered by [employer] ?? If further treatment with your primary care physician or another doctor is recommended, it is important for you to keep the appointment. Call your primary care physician or return to the Emergency Department immediately if your condition worsens, fails to improve, or new symptoms develop. If you need to find a doctor, you can call [facility] for a referral at [phone] or toll free at [phone]) or log in to [email or web address] medical centerSimalaya.. ?? You can view and manage your care through the patient portal or by using a health care medhat of your choosing. [email or web address] is a website that allows you to securely view your medical information including your hospital discharge summary, office visit summaries, medications and follow-up visits. You can also request appointments, renew medications, and request access to your medical information using a health care medhat of your choosing, or just ask a question. You can enroll at [email or web address] or register during your next office visit. You have been discharged from [facility], Patient Care Unit: SW6. If you have any questions regarding these instructions after you leave, please call us and we will be happy to assist you. [facility] Your Care Team Attending Physician Meredith WEST, Rosi Watson Consulting Providers Michael WEST, Melissa Nichole; Dale WEST, Kendra; Kody WEST, Ashley Discharging Providers Tobias SILVA, David Welch Reason for Admission MSSA Your Diagnosis Head injury Scalp laceration Multiple rib fractures Severe alcohol use disorder Nicotine dependence MSSA bacteremia Empyema lung Sepsis due to methicillin susceptible Staphylococcus aureus Severe sepsis Tests Performed Below is a partial list of the tests performed during your hospitalization. You may have had other tests and procedures not included in this list. Please discuss all test results with your provider. Alcohol Level Amphetamine Urine Screen Amylase Barbiturate Urine Screen Basic Metabolic Panel Benzodiazepine Urine Screen BUN Cannabinoid Urine Screen CBC w/ Differential Cocaine Urine Screen COMPLETE BLOOD COUNT Complete Urinalysis Copper Level COVID-19 (2019 Novel Coronavirus) PCR CREATININE ELECTROLYTES GLUCOSE HOLD GREEN TUBE Hold Red Top Tube Lactate Level Lactic Acid Level Lytes MAGNESIUM Opiate Screen Urine PH CORRECTED IONIZED CALCIUM PHOSPHORUS PT (INR) PTT Selenium Level Type and Screen Zinc Level Chest CT W/ Contrast CT Abd/Pelvis W/ IV Contrast Only CT Cervical Spine W/O Contrast CT Chest W/ Contrast CT Chest W/ IV Contrast CT Head/Brain W/O Contrast CT Pleural Drainage w/dwelling cath CXR CXR Portable CXR W/ Frontal and Lat US Doppler Ext Lower Venous Bilat XR Chest 2 Views Frontal and Lat XR Chest Portable XR Modified Barium Swallow W/ Speech RAD Primary Care Provider Not on Staff, PCP Advance Directive Health Care Proxy on File No Discharge Vitals Temperature: 98.5 DegF Height: 163 cm Pulse Rate:??111 bpm??High Weight: 55.1 kg Respiratory Rate: 17 br/min Body Mass Index: 22.51 kg/m2 Respiratory Rate: 17 br/min Body surface area: 1.65 Systolic Blood Pressure: 131 mm Hg ?? Diastolic Blood Pressure: 73 mm Hg ?? Oxygen Saturation: 96 % ?? Studies Pending All tests and labs ordered during this hospital stay have been completed unless listed below. Please discuss all pending results with your provider listed above in these instructions. ?? RBCs for Surgery Type and Screen Urinalysis w/hold for Urine Culture What to do next Instructions From Your Doctor Trauma Special Instructions? If you develop fever, chills, increased pain, nausea, vomiting, bleeding, or increased redness or pus around the wound please call the trauma surgery office at . Please take medicationsas prescribed and do not drive while on narcotic medications.? If you have any questions, please call the trauma surgery office at . ?? Please call your Primary Care Provider within 1 week for post hospital follow up and review of yourmedications. ? Thoracic Surgery: You will need to follow up with the Thoracic Surgery clinic in 1 week upon discharge. Prior to yourappointment, you will need a CT chest with IV contrast. This will be arranged for you. Please call the Thoracic Surgery office at if you have not yet heard from them regarding your appointment. Regarding your CT imaging pre-appointment, you will likely hear back from the Radiology department to schedule this test. ?? Neurosurgery recs:??Please follow up in [address] Osman (S/p ACDF on 09/27)?? Please call to make this appointment ?? Infectious disease recommendations: Please call to schedule??ID??Appointment in 3-4 weeks ?? ID office: ? Indication/s:??MSSA Bacteremia, Empyema?? Antimicrobial/s:?Cefazolin 2 grams every 8 hours Planned duration: 4 weeks Start date:?10/16/2022 End date: 11/13/2022 Monitoring labs (test/frequency): Weekly CBC w/ Diff, CMP Imaging needed before outpt f/u visit: Yes; CXR 2 views ?? Discharge Orders You Need to Schedule the Following Appointments Follow Up with??Not on Staff, PCP When:??Within 1 week Why: Please call PCP to schedule follow up in 1 week Follow Up with??[facility] PCP Assignment Line [phone] Follow Up with??Dawson WEST, Shanon Love When:??Within 1 week Why: Please call to schedule follow up in 1 week. Where: [address] [place] [address] [facility] Neurosurgery [place], [place] [id number]- Follow Up with??Melissa Rodriguez MD When:??Within 1 week Why: Please call to schedule follow up appointment in 1 week Where: [address] [place] [address] [address] [facility] Thoracic Surgery [place], [place] [id number]- Discharge Medications HALLIE DIXON :1960 Visit Date:10/04/2022 Medications: Please continue your medications until treatment is completed or stopped by your provider. Medications not listed below should be discontinued. Discuss any questions related to medications with your provider. What How Much When Instructions Next Dose New Acetaminophen (acetaminophen 325 mg oral tablet) 2 tab(s) Oral Every 6 hours 9 pm New Aspirin (Aspirin Tablet) 81 Milligram Oral Daily 6-13 New ceFAZolin (ceFAZolin 2 g injection) 2 gram Intravenous Push Every 8 hours 6 pm New Docusate (Docusate Sodium Capsule) 100 Milligram Oral Twice a day 9 pm New Folic Acid (folic acid 1 mg oral tablet) 1 tab(s) Oral Daily 6-13 New Gabapentin (gabapentin 300 mg oral capsule) 1 capsule Oral 3 times a day 9 pm New Lactulose (lactulose 10 gm/ 15 ml oral syrup) 30 Milliliter Oral 3 times a day 9 pm New Multivitamin (Multivitamin Tablet) 1 tab(s) Oral Daily 6-13 New Oxycodone (oxyCODONE 5 mg oral tablet) 1 tab(s) Oral Every 4 hours as needed for Pain , Severe Printed Prescription 7 pm Test Results Below is a partial list of the most recent Laboratory test results done prior to this discharge. You may have had other tests and procedures not included in this list. Please discuss all test resultswith your provider. Antibody Screen - Negative (10/14/2022) Blood Type - O Positive (10/14/2022) Est Creatinine Clearance - 156.11 mL/min (10/17/2022) RBC Available - RE (10/14/2022) RBC Unit ID - [id number]-* (10/14/2022) Alcohol Level (10/04/2022) ???Ethanol, Serum or Plasma - 172 mg/dL Amphetamine Urine Screen (10/05/2022) ???Amphetamine Screen, Urine - NONE DETECTED Amylase (10/04/2022) ???Amylase - 42 units/L Barbiturate Urine Screen (10/05/2022) ???Barbiturate Screen, Urine - POSITIVE Basic Metabolic Panel (10/04/2022) ???Sodium - 121 mmol/L???Potassium - 4.2 mmol/L???Chloride - 81 mmol/L???Bicarbonate Level - 24 mmol/L???Anion Gap - 16???Glucose Level - 182 mg/dL???BUN - 9 mg/dL???Creatinine-Blood - 0.5 mg/dL???Estimated GFR Creatinine - 82 ML/MIN/1.73 M2???Calcium - 9.0 mg/dL Benzodiazepine Urine Screen (10/05/2022) ???Benzodiazepine Screen, Urine - NONE DETECTED BUN (10/21/2022) ???BUN - 10 mg/dL Cannabinoid Urine Screen (10/05/2022) ???Cannabinoid Screen, Urine - NONE DETECTED CBC w/ Differential (10/21/2022) ???WBC - 5.7 k/mm3???RBC - 2.35 m/mm3???Hgb - 7.4 Gm/dL???Hct - 23.3 %???MCV - 99.1 femtoliters???MCH - 31.5 pg???MCHC - 31.8 g/dL???Platelet Count - 576 k/mm3???RDW-SD - 52.5 femtoliters???MPV - 9.9femtoliters???Nucleated RBC (Automated) - 0.0 #/100 WBC'S???Abs. NRBC - 0.0 k/mm3???Abs. Neut - 2.1 k/mm3???Abs. Lymph - 1.6 k/mm3???Abs. Dukes - 1.4 k/mm3???Abs. Eo - 0.5 k/mm3???Abs. Baso - 0.1 k/mm3???Neut % - 37.5 %???Lymph % - 28.5 %???Dukes % - 24.1 %???Eos % - 8.0 %???Baso % - 1.4 %???Imm Gran- 0.5 %???Abs. Imm Gran - 0.0 k/mm3 Cocaine Urine Screen (10/05/2022) ???Cocaine Metabolite Screen, Urine - NONE DETECTED COMPLETE BLOOD COUNT (10/21/2022) ???WBC - 5.6 k/mm3???RBC - 2.36 m/mm3???Hgb - 7.4 Gm/dL???Hct - 23.7 %???MCV - 100.4 femtoliters???MCH - 31.4 pg???MCHC - 31.2 g/dL???Platelet Count - 607 k/mm3???RDW-SD - 53.0 femtoliters???MPV - 10.0 femtoliters???Nucleated RBC (Automated) - 0.0 #/100 WBC'S???Abs. NRBC - 0.0 k/mm3 Complete Urinalysis (10/14/2022) ???Appear/Color, Urine - YELLOW???Specific Meta, Urine - 1.025???pH, Urine - 6.0???Albumin, Urine - TRACE???Glucose, Urine - NEGATIVE???Ketones, Urine - NEGATIVE???Bilirubin, Urine - NEGATIVE???Hemoglobin, Urine - NEGATIVE???Nitrite, Urine - NEGATIVE???Leukocyte, Urine - NEGATIVE???Urobilinogen - NORMAL? ?WBC's, Urine - 4 /HPF? ?RBC's, Urine - <1 /HPF? ?Bacteria - SLIGHT? ?Transitional Epith - <1 /HPF? ?Mucus - SLIGHT Copper Level (10/06/2022) ???Copper Level - 116 COVID-19 (2019 Novel Coronavirus) PCR (10/04/2022) ???COVID-19 PCR Specimen Source - NASAL???COVID-19 PCR Result - NEGATIVE CREATININE (10/21/2022) ???Creatinine-Blood - 0.4 mg/dL???Estimated GFR Creatinine - 127 ML/MIN/1.73 M2 ELECTROLYTES (10/21/2022) ???Sodium - 138 mmol/L???Potassium - 4.8 mmol/L???Chloride - 101 mmol/L???Bicarbonate Level - 25 mmol/L???Anion Gap - 12 GLUCOSE (10/21/2022) ???Glucose Level - 101 mg/dL HOLD GREEN TUBE (10/04/2022) ???Hold Green Top - SPECIMEN DISCARDED AFTER 1 WEEK Hold Red Top Tube (10/04/2022) ???Hold Red Top - SPECIMEN DISCARDED AFTER 1 WEEK Lactate Level (10/05/2022) ???Lactate - 1.9 mmol/L Lactic Acid Level (10/04/2022) ???Lactate - 6.3 mmol/L Lytes (10/21/2022) ???Sodium - 133 mmol/L???Potassium - 4.8 mmol/L???Chloride - 98 mmol/L???Bicarbonate Level - 24 mmol/L???Anion Gap - 11 MAGNESIUM (10/21/2022) ???Magnesium - 2.0 mg/dL Opiate Screen Urine (10/05/2022) ???Opiate Screen, Urine - NONE DETECTED PH CORRECTED IONIZED CALCIUM (10/21/2022) ???Calcium, Ionized pH Corrected - 1.22 mmol/L PHOSPHORUS (10/21/2022) ???Phosphorus - 4.2 mg/dL PT (INR) (10/04/2022) ???INR - 1.0???Protime (PT) - 10.9 seconds PTT (10/04/2022) ???APTT - 24.4 seconds Selenium Level (10/06/2022) ???Selenium Level - 81 Type and Screen (10/04/2022) ???Blood Type - O Positive???Antibody Screen - Negative Zinc Level (10/06/2022) ???Zinc Level - 53 Allergies (NKA means No Known Allergies) No Known Medication Allergies Pollen Problems No qualifying data available Education Materials Below is the list of Educational Leaflet Providered with your Discharge Instructions. Trauma Rib and Chest Injuries?? Valuables and Belongings I fully understand and agree that [facility] accepts no responsibility for all my personal property including clothing, toilet articles, radios, jewelry, dentures, hearing aids, rings, money, or any other property that is in my possession or is brought to me after admission. I understand certain valuables may be placed in a hospital safe for a short period of time. I understand that the hospital is not liable for loss or damage due to accident, fire, or other natural occurrence while said property is in the safe. I accept full responsibility for any personal property that I keep with me, and will not hold the hospital responsible in case of loss or disappearance. I acknowledge that i have been encouraged to send valuables and belongings home. ?? No Valuables/Belongings: No valuables/belongings present Review of Valuable and Belonging List: With patient Date for Pt to Sign Valuables/Belongings: 10/14/22 07:13:00 ?? Other Discharge Information ?? Wound Assessment?? Wound Assessment?? Wound Location I: Neck Wound Type I: Surgical Wound I, Present on Admission: Yes Wound Location II: multiple chest tube incisions Wound Location II: chest tube Wound Type II: Other: Rash Wound II, Present on Admission: Yes Wound Location III: chest tube on left anterior ? Case Management Discharge Plan?? Discharge Plan?? Discharge Agency Information?? Discharge Level of Care at Discharge: alf facility Name of Person Notified of Transfer: DC Plan delivered to pt at bedside Discharge Transportation Arranged: [facility] [id number] [phone] ?? Mode of Transportation Arranged: Chair Van ?? Discharge Arranged Transport Date/Time: 10/17/22 17:00:00 ?? Discharge Nursing Homes/Rehab Facilities: [facility] ? Pulmonary Rehab Status?? Pulmonary Rehab Discharge Status?? CPAP/BiPAP Mask Type: Full CPAP/BiPAP Mask Size: Medium Respiratory Rate: 17 br/min Respiratory Rate: 17 br/min ? Common Emergency Awareness Tips IS IT A STROKE? Act FAST and Check for these signs: FACE Does the face look uneven? ARM Does one arm drift down? SPEECH Does their speech sound strange? TIME Call at any sign of stroke ?? Heart Attack Signs Chest discomfort: Most heart attacks involve discomfort in the center of the chest and lasts more than a few minutes, or goes away and comes back. It can feel like uncomfortable pressure, squeezing, fullness or pain. Discomfort in upper body: Symptoms can include pain or discomfort in one or both arms, back, neck, jaw or stomach. Shortness of breath: With or without discomfort. Other signs: Breaking out in a cold sweat, nausea, or lightheaded. Remember, MINUTES DO MATTER. If you experience any of these heart attack warning signs, call to get immediate medical attention! ?? Smoking can increase your chances of developing chronic health problems and can cause harmful effects to other family members in your house. If you smoke, you are strongly encouraged to quit. Please call [facility] Link at [phone] or [phone]-[facility] ([phone]) or log in to [email or web address] for referrals to smoking cessation programs. ?? 170 Suicide & Crisis Lifeline is available 04/12 if you or someone you know needs to find a reason to keep living. By calling 404 you'll be connected to a skilled, trained counselor at a crisis center in your area. INPATIENT DISCHARGE INSTRUCTIONS SIGNATURE PAGE HALLIE DIXON Location:[facility] Registration Date and Time:10/04/2022 21:58 EDT Primary Care Physician: Not on Staff, PCP Attending Physician: Meredith WEST, Rosi Watson, I ZACK HALLIE, have received the above patient education materials/instructions and have verbalized understanding. If ambulance or transport services are being used I further acknowledge being given a choice of service. ?? If you need to contact me, please call me at this number: . Patient/Saw Superintendent Name: Patient/Saw Superintendent Signature: Relationship to Patient: Witness Name/Signature: Date: * David Kirkpatrick R: PERFORM Event Display: Patient Education Leaflets Authored Date: [id number] Trauma Rib and Chest Injuries ?? 319 ?? Trauma Patient - Rib and Chest Injuries Aftercare Instructions ?? There are 12 pairs of ribs, attached to other bones in the chest by cartilage. Ribs protect vital body organs. You have been diagnosed with ???rib fractures?? , also called ???broken ribs?? . A chestx-ray may identify rib fractures, but they may not always be seen. They may also be diagnosed by phy sical exam. ?? Common Symptoms: ??? Pain or tenderness in the fracture area in the chest wall or back ??? Sharp pain that increaseswith deep breathing, coughing, and/or sneezing ??? Mild shortness of breath ??? Chest pain on movement of shoulders or upper body ??? Feeling a ???clicking?? sensation with movement of the chest ?? Length of healing: You may have symptoms for weeks to months, depending on the number and severity. Rib fractures eventually heal, even if the ribs are not in perfect alignment. New bone is formed along the rib fracture. If a person is thin, this may be felt as a hard lump. ?? Possible complications: ??? Collapsed lung ??? rib fractures can cause lung collapse due to either air (pneumothorax) or blood (hemothorax) filling between the ribs and the lung. You may have had a chest tube placed. ??? Pulmonary contusion ??? this is a bruise to the lung that may occur with rib fractures. ??? Atelectasis ??? the smallest air pockets may collapse, and that part of the lung does not receive air. To prevent, use Incentive Spirometry or walk frequently if possible. ??? Pneumonia ??? this is an infectionin the lung that can develop after atelectasis. ?? Treatment: ??? Take pain medication as directed. Pain medications usually can???t take the pain away completely, but will allow you to take deep breaths. With time, you can start to cut back on pain medication.??? Hold a pillow or your hand against the injured area when coughing and taking deep breaths. ??? Do not wrap/tape around chest or wear tight clothing. ??? Use the Incentive Spirometer as advised byyour doctor. ??? Sleeping in a recliner is easier than in a bed for the first few days or weeks after injury. ??? Consider using a heating pad after the first weeks to help with muscle spasms. ??? Hot showers and gentle stretching exercises can also help relieve muscle spasms. ??? Restriction of air travel (flying) or scuba diving is recommended for 1 month with a collapsed lung. ?? Activity Recommendations: ??? Slowly advance to normal activities. ??? No driving until you are no longer taking pain medication. ??? Return to work [? ] Full Duty or [? ] Light Duty (dependent on activities required at the job). ??? Return to sports/gym activities [? ] ?? Additional questions please contact: Trauma Outpatient Office/[facility] [place] [address] [place], [place] [id number] ? 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 nurse Was group chief operator a member of PICC/IV Team : Yes Mary Frank - 10/18/2022 17:30 EDT Procedural Comments Risk Factors and Labs Reviewed : Yes Anticoagulation Therapy : No Antiplatelet Therapy : No Mary Frank - 10/18/2022 17:30 EDT Was vascular access order placed : Yes Vascular Access Type : Central line Time Out Performed : Yes Time Out Data : Patient identified, Site verified, Procedure verified, Consent signed, RN attendance Reason for Vascular Access Insertion : Medication requires use of vascular access Suspected Vascular Access Infection : No, the access was not exchanged over a guide wire Vascular Access Procedure Check : Consent obtained Hand Hygiene prior to insertion : Yes Maximal sterile barriers used : Mask, Sterile gown, Large sterile full body drape, Sterile gloves, Ultrasound sterile cover, Cap Sterile Field Maintained : Yes Skin Preparation : Chlorhexidine (CHG) Skin Prep dry at first skin puncture : Yes Antimicrobial coated catheter used : No Successful central line placement : Yes Vascular Access Catheter Type : PICC line Vascular Access Insertion Site : Other: right upper extremity basilic vein Vascular Access Insertion Side : Right Vascular Access Catheter Size : 4fr Vascular Access Catheter Length : 35cm Vessel Identified By : Ultrasound Vascular Access Insertion Circumstance : Non-emergent Vascular Access Catheter Securement : Sutureless (Statlock) Vascular Access Dressing : Occlusive Follow-up CXR : Not applicable CXR Comment : distal SVC confirmed with [employer] Mary Frank - 10/18/2022 17:30 EDT DCP GENERIC CODE Suture needles : 0 [place] : 3 Scalpels : 1 Clamps : 0 Guide Wires : 1 Mary Frank - 10/18/2022 17:30 EDT Complications during Insertion : None Tolerated CLIP procedure well : Yes Insertion Attempts : 1 Vascular Access Device QA : BARD CTPICC DL 4Fr @ 35cm Vascular Access Device Lot Number : [id number] Vascular Access Device Code : [id number] Vascular Access Device Expiration Date : 09/11/2023 EDT Vascular Access Insertion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 Reviewed By: Martinez Barajas MD Signed By: Martinez Barajas MD Signed Date/Time: 10/14/22 6:46 am Transcribed By: JACKY Transcribed Date/Time: 10/14/22 6:43 am * Abrahan , CIS S: TRANSCRIJose Elias Rodarte MD: VERIFY Event Display: Result: Authored Date: [id number] Chest Portable Reason: Tube Placement; Findings concerning for a loculated pleural effusion and empyema status post left VATS and decortication earlier today. COMPARISON: Earlier the same day. FINDINGS: Single AP upright chest x-ray labeled postop. LINES AND TUBES: Interval removal of the pigtail pleural drain and insertion of 2 apically directed thoracostomy tubes. LUNGS AND PLEURA: Decreasing left-sided effusion with residual consolidative left basilar opacity likely atelectasis. Right lung remains mildly hyperexpanded and clear. No pneumothorax. HEART, MEDIASTINUM AND IDALIA: Heart is normal in size. Normal mediastinal and hilar contour. BONES AND SOFT TISSUES: Multiple left-sided rib fractures were better visualized on recent CT scan. IMPRESSION: Postoperative changes, no evidence of a pneumothorax. WSN: [id number] Ordering Physician: Talha Nixon Dictated By: Jose Elias Merritt MD Dictated Date/Time: 10/14/22 11:32 a Reviewed By: Jose Elias Merritt MD Signed By: Jose Elias Merritt MD Signed Date/Time: 10/14/22 11:32 am Transcribed By: JACKY Transcribed Date/Time: 10/14/22 11:32 am * [facility]SP[facility] , CIS S: TRANSCRIBE Shwetha Thomson MD: VERIFY Event Display: Result: Authored Date: [id number] Chest Portable performed upright at 6:20 PM Reason: Other:; Pain; Clinical Question(s): Other:; Fracture, pneumothorax, pulmonary contusion COMPARISON: Multiple prior chest x-rays, the most recent of which is dated 10/11/2022 at 6:06 AM. FINDINGS: LINES AND TUBES: Interval placement of the left pleural catheter. LUNGS AND PLEURA: Persistent near complete opacification of the left hemithorax with small amount of aerated lung remaining superiorly. There is evidence of volume loss with right to left shift of the mediastinum. No pneumothorax. HEART, MEDIASTINUM AND IDALIA: Right left shift of the mediastinum is unchanged. The cardiac silhouette is obscured by opacity in the left hemithorax. BONES AND SOFT TISSUES: Mildly displaced fracture of the lateral aspect of the left seventh rib and fracture of the lateralaspect of the left eighth rib. Subacute fracture of the lateral aspect of the right seventh and ninth ribs and mildly displaced acute fracture of the right posterolateral eighth rib. Unchanged deformity of the mid right clavicle. Fixation hardware overlies the lower cervical spine. IMPRESSION: No significant interval change. WSN: [id number] Ordering Physician: Oscar Dixon Dictated By: Shwetha Thomson MD Dictated Date/Time: 10/11/22 6:47 pm Reviewed By: Shwetha Thomson MD Signed By: Shwetha Thomson MD Signed Date/Time: 10/11/22 6:47 pm Transcribed By: JACKY Transcribed Date/Time: 10/11/22 6:45 pm * [facility]SP[facility] , CIS S: TRANSCRIBE David Navarro MD: VERIFY Event Display: Result: Authored Date: [id number] Chest Portable AP upright Reason: Tube Placement; Clinical Question(s): Tube Placement COMPARISON: Chest radiograph 10/09/2022 FINDINGS: LINES AND TUBES: The left-sided chest tube has been repositioned and projects at the left lung base. One of the sideholes is external to the pleural cavity. LUNGS AND PLEURA: Improved aeration of the left lung with decreased size of the left pleural effusion. Persistent consolidation/atelectasis of the left lower lung with probable small volume residual effusion. The right lung is clear. No pneumothorax. HEART, MEDIASTINUM AND IDALIA: Heart is normal in size. Unchanged mediastinal and hilar contour. BONES AND SOFT TISSUES: No acute osseous abnormality. Similar volume of soft tissue gas in the lateral left chest wall. IMPRESSION: 1. Interval repositioning of the now basically directed left chest tube. One of the sideholes is external to the pleural cavity and may be ineffective. Correlation with clinical parameters recommended with consideration for repositioning. 2. Improved aeration of the left lung with decreased size of left pleural effusion. Persistent airspace consolidation of the left may be related to atelectasis. Findings communicated via [employer] secure message to Radha Chandler MD at 10/09/2022 10:54 PM. WSN: [id number] Ordering Physician: Radha Chandler Dictated By: David Navarro MD Dictated Date/Time: 10/09/22 10:54 p Reviewed By: David Navarro MD Signed By: David Navarro MD Signed Date/Time: 10/09/22 10:54 pm Transcribed By: JACKY Transcribed Date/Time: 10/09/22 10:47 pm * [facility]SP[facility] , CIS S: TRANSCRIBE Mudge MD, Christopher S: VERIFY Event Display: Result: Authored Date: [id number] Chest Portable REASON: Follow-Up Pleural Effusion; s p CT back to -20 mmHg in setting of worsening aeration on prior CXR (on WS); Clinical Question(s): Pneumothorax / Pneumothorax COMPARISON: Earlier today FINDINGS: LINES AND TUBES: Apically directed left chest tube in place. LUNGS AND PLEURA: New complete opacification of the left hemithorax, similar to prior. Right lung is grossly clear. No pneumothorax. HEART, MEDIASTINUM AND IDALIA: Obscured but grossly unchanged. BONES AND SOFT TISSUES: Left chest wall soft tissue emphysema, similar to prior. Chronic appearing right clavicle fracture. IMPRESSION: No significant change. WSN: [id number] Ordering Physician: Anjelica Garcia Dictated By: Luciano Lucio MD Dictated Date/Time: 10/09/22 3:33 pm Reviewed By: Luciano Lucio MD Signed By: Luciano Lucio MD Signed Date/Time: 10/09/22 3:33 pm Transcribed By: JACKY Transcribed Date/Time: 10/09/22 3:31 pm * [facility] , CIS S: TRANSCRIBE Luciano Pandya MD: VERIFY Event Display: Result: Authored Date: [id number] Chest Portable Reason: Tube Placement; Clinical Question(s): Tube Placement COMPARISON: X-ray from 10/08/2022 and 6:29 AM FINDINGS: LINES AND TUBES: Apically directed left chest tube unchanged. LUNGS AND PLEURA: The right lung is clear. There is persistent left basilar opacity suggesting atelectasis involving the left lower lobe. No left-sided pneumothorax is identified. Previously reported trace right effusion is no longer seen. HEART, MEDIASTINUM AND IDALIA: Mild prominence of the cardiac silhouette. Normal mediastinal and hilar contour. BONES AND SOFT TISSUES: No acute abnormality. Left lateral chest wall extrathoracic soft tissue emphysema is incidentally noted, unchanged. IMPRESSION: Left basilar opacity and volume loss which may be due to atelectasis or pneumonia in the left lowerlobe. Stable positioning of apically directed left chest tube. No pneumothorax. WSN: [id number] Ordering Physician: Alisia Butterfield Dictated By: Luciano Pandya MD Dictated Date/Time: 10/08/22 11:11 p Reviewed By: Luciano Pandya MD Signed By: Luciano Pandya MD Signed Date/Time: 10/08/22 11:11 pm Transcribed By: JACKY Transcribed Date/Time: 10/08/22 11:08 pm * LUCIEN Gauthier S: TRANSCRIBE Luciano Pandya MD: VERIFY Event Display: Result: Authored Date: [id number] Chest Portable Reason: Other:; interval change in pneumothorax, chest tube to wall suction; Clinical Question(s): Pneumothorax COMPARISON: X-ray earlier today at 3:09 PM. FINDINGS: LINES AND TUBES: Stable positioning apically directed left chest tube. LUNGS AND PLEURA: Previously reported left pneumothorax is reduced in size now trace. There is some atelectasis and/or pleural reaction adjacent to the chest tube entry site. No pleural effusion. HEART, MEDIASTINUM AND IDALIA: Heart is normal in size. Normal mediastinal and hilar contour. BONES AND SOFT TISSUES: No acute abnormality. IMPRESSION: Previously reported small left pneumothorax is decreased in size now trace. Stable blunting of leftcostophrenic angle which may be due to some pleural thickening and/or atelectasis adjacent to the chest tube entry site. WSN: [id number] Ordering Physician: Noe Bah Dictated By: Luciano Pandya MD Dictated Date/Time: 10/07/22 11:49 p Reviewed By: Luciano Pandya MD Signed By: Luciano Pandya MD Signed Date/Time: 10/07/22 11:49 pm Transcribed By: JACKY Transcribed Date/Time: 10/07/22 11:45 pm * Abrahan , CIS S: TRANSCRIBE Alvaro Calderon MD: VERIFY Event Display: Result: Authored Date: [id number] Chest Portable Reason: Tube Placement; s p left open thoracostomy tube; Clinical Question(s): Tube Placement COMPARISON: 10/06/2022 FINDINGS: LINES AND TUBES: Left-sided chest tube in good position with tip at the apex. LUNGS AND PLEURA: Increased density seen at the left base unchanged from previous exam. Probable pleural fluid. No pleural effusion. No pneumothorax. HEART, MEDIASTINUM AND IDALIA: Heart is normal in size. Normal mediastinal and hilar contour. BONES AND SOFT TISSUES: Subcutaneous emphysema noted. Chronic right clavicular fracture. IMPRESSION: Left chest tube in good position. No definite pneumothorax. Probable left base effusion similar to previous exam. WSN: [id number] Ordering Physician: Anjelica Garcia Dictated By: Alvaro Calderon MD Dictated Date/Time: 10/06/22 2:47 pm Reviewed By: Alvaro Calderon MD Signed By: Alvaro Calderon MD Signed Date/Time: 10/06/22 2:47 pm Transcribed By: CSB Transcribed Date/Time: 10/06/22 2:45 pm * LUCIEN Gauthier S: TRANSCRIBE Luciano Pandya MD: VERIFY Event Display: Result: Authored Date: [id number] Chest Portable Reason: Other:; Pain; Clinical Question(s): Other:; Fracture, pneumothorax, pulmonary contusion COMPARISON: Concurrent chest CT FINDINGS: LINES AND TUBES: None. LUNGS AND PLEURA: Patchy airspace opacity in left upper lobe possibly representing a contusion. Trace effusions on CTare not well seen on x-ray. Trace left apical pneumothorax seen on CT not well visualized on x-ray. HEART, MEDIASTINUM AND IDALIA: Heart is normal in size. Normal mediastinal and hilar contour. BONES AND SOFT TISSUES: Minimally displaced posterior left rib fractures better seen on CT. IMPRESSION: Posterior left rib fractures, trace left pneumothorax and trace bilateral effusions which are better seen on concurrently performed chest CT. WSN: [id number] Ordering Physician: Clemente Hankins Dictated By: Luciano Pandya MD Dictated Date/Time: 10/04/22 8:50 pm Reviewed By: Luciano Pandya MD Signed By: Luciano Pandya MD Signed Date/Time: 10/04/22 8:50 pm Transcribed By: CSDionisio Transcribed Date/Time: 10/04/22 8:48 pm Radiology * PRINCEowerchristina , LUCIEN S: TRANSCRIBE Shwetha Thomson MD: VERIFY Allyson Duvall NP: SIGN Event Display: Result: Authored Date: [id number] Modified Barium Swallow W/ Speech (Radio WITH SPEECH PATHOLOGY CLINICAL INDICATION: Aspiration; Clinical Question(s): Aspiration; Modified Barium Swallow W Speech(Radiology) Prep COMPARISON: None Technique: Lateral cine-videofluoroscopy was performed during the oral administration of various barium containing consistencies, as described below. Fluoroscopic imaging provided by MADI Samson fluoroscopy time: 2.3 minutes Dose Area Product (DAP): 116.7 uGy*m2 Findings: Applesauce, pudding, nectar, mixed fruit/juice and thin barium consistencies were tested. Applesauce: No laryngeal penetration or subglottic aspiration. Pudding: No laryngeal penetration or subglottic aspiration Sorgho: No laryngeal penetration or subglottic aspiration Mixed fruit and juice: No laryngeal penetration or subglottic aspiration Thin barium: There was laryngeal penetration of thin liquids, with deep penetration noted on at least one swallow. Vallecular pooling of thin liquids with penetration noted upon prompted attempts to clear the residuals. No aspiration of thin liquids. IMPRESSION: Laryngeal penetration of thin liquids as described. For dietary concerns or recommendations, please refer to speech pathologist report. By undersigning and finalizing the report, the attending radiologist confirms he/she has personallyreviewed and interpreted the images and agrees with the description of the findings. I have personally reviewed the images and I agree with this report. WSN: [id number] Ordering Physician: Ramesh August Dictated By: Allyson Duvall NP Dictated Date/Time: 10/19/22 11:38 a Reviewed By: Shwetha Thomson MD Signed By: Shwetha Thomson MD Signed Date/Time: 10/19/22 11:43 am Transcribed By: JACKY Transcribed Date/Time: 10/18/22 12:06 pm * Event Display: IR End of Case Report * Andre Singh MD: PERFORM, TRANSCRIBE, VERIFY, VERIFY Event Display: Result: Authored Date: [id number] Patient: HALLIE DIXON Study Date: 10/11/2022 Performing: Andre Singh MD Referring: : 1960 Age: 62 Gender: MALE PROCEDURE: CT guided drainage catheter placement. INDICATION: Left effusion UPPER SHAPER(S): Andre Singh MD ANESTHESIA: 10 mL of buffered 1% lidocaine was administered for local anesthesia. TECHNIQUE: A limited CT scan of the was performed using automatic tube current modulation to optimize dose parameters. A suitable access site was identified, marked, prepped, and draped in standard fashion. Using intermittent CT fluoroscopy guidance, a 19-gauge introducer needle was advanced into the anterior collection. A 0.035 inch guidewire was placed and the tract was dilated to?10 Maldivian. ?A?10 Fr catheter was placed into the collection. The catheter was maintained to suction and secured to the skin using 2-0 Ethilon suture. A sample was sent for requested studies. COMPLICATIONS: The patient tolerated the procedure well and in stable condition. There were no immediate complications. FINDINGS: Comparison is made to the previous study of 10/10/2022. Successful access and catheter deployment into the anterior loculated collection. S/P removal of a non-functional chest tube. Another small loculated collection seen laterally is inaccessible. Otherwise no other significant fluid in the chest. PLAN: Routine post procedure monitoring. IMPRESSION: Successful CT-guided placement of a 10 Maldivian drainage catheter on the left. Signed By Andre Singh MD On 10/11/2022 17:53:58 Signed By Andre Singh MD On 10/11/2022 17:53:58 Andre Singh MD Equipment : [employer] DEVICE CO-AXIAL INTRO 19 X 5.4 BSC CATHETER 10FR NON-LOCKING FLEXIMA Dictated By: Andre Singh MD Dictated Date/Time: 10/11/22 4:10 pm Reviewed By: Andre Singh MD Signed By: Andre Singh MD Signed Date/Time: 10/11/22 4:10 pm Transcribed By: TERESA Transcribed Date/Time: 10/11/22 4:10 pm * [facility] , CIS S: TRANSCRIGARRETT Angulo MD, Leodan: Bora Pavon Valero: SIGN Event Display: Result: Authored Date: [id number] Modified Barium Swallow WITH SPEECH PATHOLOGY CLINICAL INDICATION: Reason: Dysphagia; Dysphagia; Clinical Question(s): Aspiration; Order Comment:10 08 2022 10:10:35 EDT Exam not being done today per rad resident Sirisha - being pushed to tomorrow. HS Per residential sales representative @ 0730 on 10 09 22, exam to be done tomorrow 10 10 22. [facility] COMPARISON: Modified barium swallow 10/06/2022 Technique: Lateral cine-videofluoroscopy was performed during the oral administration of various barium containing consistencies, as described below. Fluoroscopic imaging provided by James Cancino PA-C. Pulsed fluoroscopy time: 4.0 minutes Dose Area Product (DAP): 158.7 uGy*m2 Findings: Applesauce, pudding, nectar, mixed fruit/juice, cookies and thin barium consistencies were tested. Subglottic aspiration not prompting cough response was seen with thin barium. The oral and pharyngeal phases of swallowing were otherwise without evidence of laryngeal penetration or subglottic aspiration. Prevertebral soft tissue swelling is again seen anterior to the C4-C5 ACDF follow this appears mildly improved from the comparison study. IMPRESSION: Silent aspiration of thin barium. Persistent prevertebral soft tissue swelling is slightly improved from prior. For dietary concerns or recommendations, please refer to speech pathologist report. By undersigning and finalizing the report, the attending radiologist confirms he/she has personallyreviewed and interpreted the images and agrees with the description of the findings. I have personally reviewed the images and I agree with this report. WSN: [id number] Ordering Physician: Alisia Butterfield Dictated By: Bora Early Dictated Date/Time: 10/10/22 10:13 a Reviewed By: Leodan Angulo MD Signed By: Leodan Angulo MD Signed Date/Time: 10/10/22 10:18 am Transcribed By: JACKY Transcribed Date/Time: 10/10/22 9:56 am * LUCIEN Gauthier S: TRANSCRIBE Bora Early: SIGN Luis Sanabria MD V: VERIFY Event Display: Result: Authored Date: [id number] Modified Barium Swallow WITH SPEECH PATHOLOGY CLINICAL INDICATION: Reason: Aspiration; Clinical Question(s): Aspiration; Order Comment: Modified Barium Swallow W Speech (Radiology) Prep COMPARISON: CT cervical spine without contrast 10/04/2022 Technique: Lateral cine-videofluoroscopy was performed during the oral administration of various barium containing consistencies, as described below. Fluoroscopic imaging provided by James Cancino PA-C. Pulsed fluoroscopy time: 3.9 minutes Dose Area Product (DAP): 160.8 uGy*m2 Findings: Honey, applesauce, pudding, nectar, cookies and thin barium consistencies were tested. Subglottic aspiration not prompting cough response was seen with thin barium. Deep laryngeal penetration of nectar and honey consistencies seen. The oral and pharyngeal phases of swallowing were otherwise without evidence of laryngeal penetration or subglottic aspiration. C4-C5 ACDF is seen with significant prevertebral soft tissue swelling appreciated. IMPRESSION: Silent aspiration and laryngeal penetration as described. C4-C5 ACDF with significant prevertebral soft tissue swelling, this is better characterized on previous CT. For dietary concerns or recommendations, please refer to speech pathologist report. By undersigning and finalizing the report, the attending radiologist confirms he/she has personallyreviewed and interpreted the images and agrees with the description of the findings. I have personally reviewed the images and I agree with this report. WSN: [id number] Ordering Physician: Oscar Dixon Dictated By: Bora Early Dictated Date/Time: 10/06/22 4:30 pm Reviewed By: Luis Sanabria MD, V Signed By: Luis Sanabria MD, V Signed Date/Time: 10/06/22 4:35 pm Transcribed By: JACKY Transcribed Date/Time: 10/06/22 3:07 pm Laboratory * Abrahan , CIS S: Shwetha Jung MD: VERIFY Event Display: Result: Authored Date: [id number] Chest 2 Views Frontal and Lat Reason: Postop; Clinical Question(s): Pleural Effusion COMPARISON: Multiple prior chest x-rays, the most recent of which is dated 10/20/2022. FINDINGS: LINES AND TUBES: There is a right PICC with tip in the proximal SVC. LUNGS AND PLEURA: Small left pleural effusion with adjacent left lower lobar opacity is not significantly changed. Nopneumothorax. HEART, MEDIASTINUM AND IDALIA: Heart is normal in size. Normal mediastinal and hilar contour. BONES AND SOFT TISSUES: No acute abnormality. Mild degenerative changes seen in the spine. IMPRESSION: 1. Right PICC with tip in the proximal SVC. 2. Otherwise no change with small left pleural effusion with adjacent density which may reflect atelectasis or pneumonia. WSN: [id number] Ordering Physician: Pat Rome Dictated By: Shwetha Thomson MD Dictated Date/Time: 10/21/22 7:38 am Reviewed By: Shwetha Thomson MD Signed By: Shwteha Thomson MD Signed Date/Time: 10/21/22 7:38 am Transcribed By: JACKY Transcribed Date/Time: 10/21/22 7:33 am * Amorscwaqar , CIS S: Juan Beverly MD: VERIFY Event Display: Result: Authored Date: [id number] Chest 2 Views Frontal and Lat Reason: Postop; Clinical Question(s): Pleural Effusion COMPARISON: 10/19/2022 FINDINGS: Grossly no change in the right arm PICC line which is difficult to see over the mediastinum. The left thoracostomy tube has been removed. Left basilar and lingular consolidation is stable. IMPRESSION: Left thoracostomy tube has been removed. No evidence of pneumothorax. Left pleural-parenchymal disease hasn't changed WSN: [id number] Ordering Physician: Shwetha Panda Dictated By: Juan Keene MD Dictated Date/Time: 10/20/22 8:45 am Reviewed By: Juan Keene MD Signed By: Juan Keene MD Signed Date/Time: 10/20/22 8:45 am Transcribed By: JACKY Transcribed Date/Time: 10/20/22 8:42 am * VINAEYSPowerscribe , CIS S: Porfirio Lynn MD: VERIFY Event Display: Result: Authored Date: [id number] Chest 2 Views Frontal and Lat Reason: Postop; Clinical Question(s): Pleural Effusion COMPARISON: Several priors most recently 10/18/2022 FINDINGS: LINES AND TUBES: Interval removal of the more cephalad of the 2 left chest tubes. Interval placement of a right PICCline, tip in region of SVC. LUNGS AND PLEURA: Continued opacity at the left base due to a combination of lower lobe atelectasis and pleural effusion. Right lung pleural space remain clear. No pneumothorax. HEART, MEDIASTINUM AND IDALIA: Heart is normal in size. Normal mediastinal and hilar contour. BONES AND SOFT TISSUES: Multiple bilateral rib fractures again noted. IMPRESSION: 1. Interval removal of one of the 2 left chest tubes without evidence for pneumothorax. Stable pleural/parenchymal changes in the left lower hemithorax. 2. Interval placement right PICC line with tip in SVC. WSN: [id number] Ordering Physician: Shwetha Panda Dictated By: Porfirio Rich MD Dictated Date/Time: 10/19/22 11:28 a Reviewed By: Porfirio Rich MD Signed By: Porfirio Rich MD Signed Date/Time: 10/19/22 11:28 am Transcribed By: JACKY Transcribed Date/Time: 10/19/22 11:22 am * Abrahan , LUCIEN S: TRANSCRIMarco Pederson MD: VERIFY Juve Moran DO: SIGN Event Display: Result: Authored Date: [id number] Chest 2 Views Frontal and Lat Reason: Other:; Clinical Question(s): Trauma COMPARISON: 10/17/2022 FINDINGS: LINES AND TUBES: Unchanged left apically directed chest tubes. LUNGS AND PLEURA: Change small left pleural effusion and associated atelectasis. Right hemithorax is clear. No pneumothorax. HEART, MEDIASTINUM AND IDALIA: Unchanged. BONES AND SOFT TISSUES: Unchanged bilateral minimally displaced rib fractures. IMPRESSION: Stable examination. I have personally reviewed the images and I agree with this report. WSN: [id number] Ordering Physician: Shwetha Panda Dictated By: Juve Moran DO Dictated Date/Time: 10/18/22 10:53 a Reviewed By: Marco Nye MD Signed By: Marco Nye MD Signed Date/Time: 10/18/22 10:58 am Transcribed By: JACKY Transcribed Date/Time: 10/18/22 9:28 am * VIANEYSPowerscribe , CIS S: TRANSCRIBE Martinez Barajas MD: VERIFY Roxanna Grimm MD A: SIGN Event Display: Result: Authored Date: [id number] Chest 2 Views Frontal and Lat REASON: Trauma COMPARISON: Multiple priors, most recent from 10/16/[address] chest from 10/13/22. FINDINGS: LINES AND TUBES: Unchanged 2 apically oriented left chest tubes. LUNGS AND PLEURA: Small left pleural effusion with overlying atelectasis. No focal consolidation. HEART, MEDIASTINUM AND IDAILA: Heart is normal in size. Normal mediastinal and hilar contour. BONES AND SOFT TISSUES: Unchanged subcutaneous emphysema along the left chest wall. Unchanged chronic appearing right posterior sixth, and seventh rib fractures. Unchanged chronic appearing distal right clavicular fracture.Acute mildly displaced left posterior third, fourth, fifth, sixth, seventh rib fractures. These arebetter visualized on the CT chest from 10/13/2022. IMPRESSION: 1. Unchanged left pleural effusion with left lower lobe atelectasis/resolving contusion. 2. Unchanged multiple left rib fractures and chronic right rib fractures, better visualized on the CT chest. I have personally reviewed the images and I agree with this report. WSN: [id number] Ordering Physician: Courtney Smith Dictated By: Roxanna Grimm MD Dictated Date/Time: 10/17/22 11:20 a Reviewed By: Martinez Barajas MD Signed By: Martinez Barajas MD Signed Date/Time: 10/17/22 11:25 am Transcribed By: JACKY Transcribed Date/Time: 10/17/22 10:57 am * BHSPowerscrigarrett , CIS S: TRANSCRIBE Kev WEST Leodan: VERIFY Mary Hernandez DO P: SIGN Event Display: Result: Authored Date: [id number] Chest 2 Views Frontal and Lat REASON: Rib fx f u pleural effusion and Pneumothorax COMPARISON: Multiple priors, most recent 10/15/2022. CT chest 10/13/2022. FINDINGS: LINES AND TUBES: Two left apically directed chest tubes are unchanged. LUNGS AND PLEURA: Unchanged loculated left effusion. Left apical scarring with probable trace pneumothorax, decreasedfrom 10/13/2022. Right lung is clear. No pleural effusion or pneumothorax. HEART, MEDIASTINUM AND IDALIA: Heart is normal in size. Aorta is mildly calcified. BONES AND SOFT TISSUES: Unchanged mildly displaced left rib fractures. Unchanged mild left chest wall soft tissue emphysema. IMPRESSION: No significant change. I have personally reviewed the images and I agree with this report. WSN: [id number] Ordering Physician: Carlitos Hayes Dictated By: Mary Hernandez DO Dictated Date/Time: 10/16/22 9:57 am Reviewed By: Leodan Angulo MD Signed By: Leodan Angulo MD Signed Date/Time: 10/16/22 10:02 am Transcribed By: JACKY Transcribed Date/Time: 10/16/22 9:57 am * Abrahan , LUCIEN S: TRANSCRIBE Shwetha Thomson MD: VERIFY Event Display: Result: Authored Date: [id number] Chest 2 Views Frontal and Lat Reason: Postop; Clinical Question(s): Pleural Effusion COMPARISON: Multiple prior chest x-rays, the most recent of which is dated 10/14/2022. FINDINGS: LINES AND TUBES: 2 apically oriented left chest tubes are seen. LUNGS AND PLEURA: Trace left pleural fluid remains with left basilar density unchanged. No pneumothorax. HEART, MEDIASTINUM AND IDALIA: Heart is normal in size. Normal mediastinal and hilar contour. BONES AND SOFT TISSUES: Left rib fractures are again seen. Healed deformity of multiple right ribs and chronic deformity right clavicle. Subcutaneous emphysema seen along the left chest wall. IMPRESSION: Trace left pleural effusion with unchanged left basilar density which may reflect atelectasis or contusion. No pneumothorax. WSN: [id number] Ordering Physician: Pat oRme Dictated By: Shwetha Thomson MD Dictated Date/Time: 10/15/22 7:46 am Reviewed By: Shwetha Thomson MD Signed By: Shwetha Thomson MD Signed Date/Time: 10/15/22 7:46 am Transcribed By: JACKY Transcribed Date/Time: 10/15/22 7:38 am * Abrahan , CIS S: TRANSCRIBE Jose Elias Merritt MD: VERIFY Event Display: Result: Authored Date: [id number] Chest 2 Views Frontal and Lat Reason: Follow-Up Pleural Effusion; interval changes. COMPARISON: CT earlier the same day. FINDINGS: LINES AND TUBES: Left lateral pleural drain. LUNGS AND PLEURA: Largely unchanged left-sided pleural effusion and basilar atelectasis and/or infiltrate. No convincing evidence of a pneumothorax. Right lung is clear. HEART, MEDIASTINUM AND IDALIA: Heart is normal in size. Normal mediastinal and hilar contour. BONES AND SOFT TISSUES: Known left rib fractures are not well seen Old healed right clavicular fracture. IMPRESSION: Largely unchanged. WSN: [id number] Ordering Physician: Noe Bah Dictated By: Jose Elias Merritt MD Dictated Date/Time: 10/13/22 7:16 am Reviewed By: Jose Elias Merritt MD Signed By: Jose Elias Merritt MD Signed Date/Time: 10/13/22 7:16 am Transcribed By: JACKY Transcribed Date/Time: 10/13/22 7:13 am * LUCIEN Gauthier S: TRANSCRIJuan Hawthorne MD: VERIFY Jose C Peters MD: SIGN Event Display: Result: Authored Date: [id number] Chest 2 Views Frontal and Lat Reason: Tube Placement. Clinical Question(s): Trauma. COMPARISON: 10/11/2022, 10/10/2022. FINDINGS: Left pleural drain is unchanged Extensive left pleural-parenchymal disease and volume loss in the left hemithorax with deviation ofmediastinal structures leftward. Left pleural- parenchymal disease has decreased slightly. Soft tissue gas left chest wall is unchanged. IMPRESSION: Extensive left pleural-parenchymal disease has decreased slightly I have personally reviewed the images and I agree with this report. WSN: [id number] Ordering Physician: Alisia Butterfield Dictated By: Jose C Peters MD Dictated Date/Time: 10/12/22 9:22 am Reviewed By: Juan Keene MD Signed By: Juan Keene MD Signed Date/Time: 10/12/22 9:27 am Transcribed By: JACKY Transcribed Date/Time: 10/12/22 9:00 am * Abrahan , LUCIEN S: TRANSCRIBE Jose C Peters MD: SIGN Luis Sanabria MD, V: VERIFY Event Display: Result: Authored Date: [id number] Chest 2 Views Frontal and Lat Reason: Tube Placement. Clinical Question(s): Pleural Effusion. COMPARISON: None. FINDINGS: LINES AND TUBES: Unchanged left basilar chest tube. A sidehole is noted to be in the lateral soft tissues of the left chest wall. Probable c-collar in place. LUNGS AND PLEURA: Decreased aeration of the left upper lobe with near complete opacification of the left lung. There are a few scattered lucent locules of air. Persistent moderate shift of the heart and mediastinum tothe left. The right lung is clear. No pneumothorax. HEART, MEDIASTINUM AND IDALIA: Heart is normal in size. Normal mediastinal and hilar contour. BONES AND SOFT TISSUES: Unchanged bilateral rib fractures. Unchanged subcutaneous emphysema the left lateral chest wall. Contrast seen in the left upper quadrant, residual from prior examination. IMPRESSION: Near complete opacification of the left lung representing worsening loculated hydropneumothorax. The large bore left basilar chest tube again noted in place with its sidehole noted in the soft tissues of the lower left lateral chest wall with nearby moderate soft tissue emphysema. A [employer] message was sent regarding this finding. I have personally reviewed the images and I agree with this report. WSN: [id number] Ordering Physician: Deepak Self Dictated By: Jose C Peters MD Dictated Date/Time: 10/11/22 11:11 a Reviewed By: Luis Sanabria MD, V Signed By: Luis Sanabria MD, V Signed Date/Time: 10/11/22 11:16 am Transcribed By: JACKY Transcribed Date/Time: 10/11/22 10:53 am * [facility] , CIS S: TRANSCRIBE Kev WEST, Leodan: VERIFY Jose C Peters MD: SIGN Event Display: Result: Authored Date: [id number] Chest 2 Views Frontal and Lat Reason: pneumo. Clinical Question(s): Pneumothorax. COMPARISON: Multiple prior examinations, most recently 10/09/2022. FINDINGS: LINES AND TUBES: Unchanged position of the left basilar chest tube. LUNGS AND PLEURA: Decreased aeration of the left lung with mildly increased opacity in the left lung base. Slightly increased hazy streaky opacities of the left upper lobe. The right lung is clear. No pneumothorax, although the lung apices are slightly obscured by an overlying c-collar. HEART, MEDIASTINUM AND IDALIA: Unchanged. BONES AND SOFT TISSUES: Unchanged bilateral lateral rib fractures. Unchanged extensive left subcutaneous emphysema. IMPRESSION: Mildly increased small left pleural effusion with adjacent linear atelectasis. Increased hazy streaky opacity in the left upper lung. May be benefits representative of worsening atelectasis, developing consolidation, or a combination of these two processes. I have personally reviewed the images and I agree with this report. WSN: [id number] Ordering Physician: Rosi Harper Dictated By: Jose C Peters MD Dictated Date/Time: 10/10/22 10:08 a Reviewed By: Leodan Angulo MD Signed By: Leodan Angulo MD Signed Date/Time: 10/10/22 10:13 am Transcribed By: JACKY Transcribed Date/Time: 10/10/22 9:58 am * Abrahan , CIS S: TRANSCRIBE Kendrick Bauman MD: VERIFY Event Display: Result: Authored Date: [id number] Chest 2 Views Frontal and Lat Reason: Other:; pneumo; Clinical Question(s): Pneumothorax COMPARISON: 10/08/2022. FINDINGS: LINES AND TUBES: Left chest tube terminates in the apex. LUNGS AND PLEURA: Worsening aeration in the left lung with interval increase in pleural effusion. The left lung is now near completely opacified. The right lung is clear. No pneumothorax. HEART, MEDIASTINUM AND IDALIA: Cardiomediastinal silhouette is obscured. Unchanged mild leftward mediastinal shift . BONES AND SOFT TISSUES: Rib fractures were better seen on recent chest CT. Unchanged left chest wall emphysema. IMPRESSION: Worsening aeration in the left lung with increased left pleural effusion. Unchanged leftward mediastinal shift. An actionable message ([place]) has been communicated via the [employer] system on 10/09/2022 9:03 AM, Message ID [id number]. WSN: [id number] Ordering Physician: David Collado Dictated By: Kendrick Bauman MD Dictated Date/Time: 10/09/22 9:03 am Reviewed By: Kendrick Bauman MD Signed By: Kendrick Bauman MD Signed Date/Time: 10/09/22 9:03 am Transcribed By: JACKY Transcribed Date/Time: 10/09/22 9:01 am * Abrahan , CIS S: TRANSCRIBE Renee Taylor MD: VERIFY Event Display: Result: Authored Date: [id number] Chest 2 Views Frontal and Lat Reason: Follow-Up Pleural Effusion; Clinical Question(s): Pneumothorax COMPARISON: 10/07/2022. FINDINGS: LINES AND TUBES: Again demonstrated is a left chest tube with its tip at the apex. LUNGS AND PLEURA: There is decreased left lung volume with findings suggestive of left lower lung lobe collapse. There is blunting of the right costophrenic angle suggestive of a small pleural effusion. There is no evidence of a pneumothorax. HEART, MEDIASTINUM AND IDALIA: Heart is normal in size. Normal mediastinal and hilar contour. BONES AND SOFT TISSUES: There is stable extensive left subcutaneous emphysema. IMPRESSION: 1. Decreased left lung volume with findings suggestive of left lower lung lobe collapse. 2. Blunting of the right costophrenic angle compatible with a small pleural effusion. 3. Left stable subcutaneous emphysema. WSN: [id number] Ordering Physician: Sonal Tomas Dictated By: Renee Taylor MD Dictated Date/Time: 10/08/22 7:49 am Reviewed By: Renee Taylor MD Signed By: Renee Taylor MD Signed Date/Time: 10/08/22 7:49 am Transcribed By: JACKY Transcribed Date/Time: 10/08/22 7:46 am * [facility] , CIS S: TRANSCRIBE Renee Taylor MD: VERIFY Event Display: Result: Authored Date: [id number] Chest 2 Views Frontal and Lat Reason: Tube Placement; left chest tube; Clinical Question(s): Tube Placement COMPARISON: 10/06/2022. FINDINGS: LINES AND TUBES: Left chest tube with its tip at the lung base. LUNGS AND PLEURA: There is decreased left lung volume. Again seen is a moderate size left pleural effusion with compressive atelectasis. Underlying airspace disease cannot be excluded. There is mild blunting of the right costophrenic angle compatible with a small pleural effusion. HEART, MEDIASTINUM AND IDALIA: Heart is normal in size. Normal mediastinal and hilar contour. BONES AND SOFT TISSUES: There is worsening left chest wall subcutaneous emphysema. IMPRESSION: There is decreased left lung volume. Again seen is a moderate size left pleural effusion with compressive atelectasis. Underlying airspace disease cannot be excluded. There is worsening left chest wall subcutaneous emphysema. WSN: [id number] Ordering Physician: Anjelica Garcia Dictated By: Renee Taylor MD Dictated Date/Time: 10/07/22 8:10 am Reviewed By: Renee Taylor MD Signed By: Renee Taylor MD Signed Date/Time: 10/07/22 8:10 am Transcribed By: JACKY Transcribed Date/Time: 10/07/22 8:08 am * Abrahan , CIS S: TRANSCRIBE Stuart Tam MD: VERIFY Event Display: Result: Authored Date: [id number] Chest 2 Views Frontal and Lat Reason: Cough; Clinical Question(s): Pneumothorax; Special Instructions: Post water seal, please obtain at 1500; Order Comment: COMPARISON: 10/07/2022 chest radiograph. FINDINGS: LINES AND TUBES: Left-sided chest tube terminates at the left apex. LUNGS AND PLEURA: Right lung is clear. Left lower lobe atelectasis and small left pleural effusion, unchanged. No pleural effusion. Small left pneumothorax, measuring up to 0.9 cm, new from prior study. HEART, MEDIASTINUM AND IDALIA: Heart is normal in size. Normal mediastinal and hilar contour. BONES AND SOFT TISSUES: No acute abnormality. Old left-sided rib fractures. IMPRESSION: 1. Small left pneumothorax, new from the prior study. Chest tube unchanged in position. 2. Left lower lobe atelectasis and small left pleural effusion, unchanged. An actionable message ([place]) has been communicated via the [employer] system on 10/07/2022 3:40 PM, Message ID [id number]. WSN: [id number] Ordering Physician: Oscar Dixon Dictated By: Stuart Tam MD Dictated Date/Time: 10/07/22 3:41 pm Reviewed By: Stuart Tam MD Signed By: Stuart Tam MD Signed Date/Time: 10/07/22 3:41 pm Transcribed By: JACKY Transcribed Date/Time: 10/07/22 3:38 pm * Abrahan , CIS S: TRANSCRIBE Jose C Peters MD: SIGN Luis Sanabria MD, V: VERIFY Event Display: Result: Authored Date: [id number] Chest 2 Views Frontal and Lat Reason: Trauma. Clinical Question(s): Trauma. COMPARISON: 10/05/2022, 10/04/2022. FINDINGS: LINES AND TUBES: Probable c-collar in place. LUNGS AND PLEURA: Unchanged or slightly decreasing ill-defined density in the left upper lobe. Increasing retrocardiac density. Unchanged blunting of left costophrenic angle. No pneumothorax. HEART, MEDIASTINUM AND IDALIA: Heart is normal in size. Normal mediastinal and hilar contour. BONES AND SOFT TISSUES: No acute abnormality. Unchanged left posterior rib fractures. Unchanged right posterior chronic ribfractures. Old, healed right clavicular fracture. Mild degenerative changes of visualized spine. IMPRESSION: Decreasing left upper lobe density. Increasing retrocardiac density consistent with increasing atelectasis and/or infiltrates and/or increasing moderate-sized left pleural effusion. I have personally reviewed the images and I agree with this report. WSN: [id number] Ordering Physician: Juan Vidlaes Dictated By: Jose C Peters MD Dictated Date/Time: 10/06/22 10:44 a Reviewed By: Luis Sanabria MD, V Signed By: Luis Sanabria MD, V Signed Date/Time: 10/06/22 10:49 am Transcribed By: JACKY Transcribed Date/Time: 10/06/22 10:34 am * [facility] , CIS S: TRANSCRIBE Luis Sanabria MD, V: VERIFY Event Display: Result: Authored Date: [id number] Chest 2 Views Frontal and Lat Reason: Other:; Clinical Question(s): Pleural Effusion COMPARISON: 10/04/2022. CT chest with IV contrast dated 10/04/2022. FINDINGS: LINES AND TUBES: C-collar in place. LUNGS AND PLEURA: Increasing density in the left lung base with some loss of volume and mild elevation of the left hemidiaphragm compared to the prior examination. This is consistent with loss of volume in the left lung base with increasing left pleural effusion. Ill-defined density left upper lobe consistent with focal atelectasis and/or infiltrate. Blunting of the left costophrenic angle laterally and posteriorly consistent with increasing left pleural effusion. No pneumothorax. HEART, MEDIASTINUM AND IDALIA: Heart is normal in size. Normal mediastinal and hilar contour. BONES AND SOFT TISSUES: No acute abnormality. Multiple acute left-sided rib fractures and multiple right-sided acute on chronic rib fractures are seen that are better appreciated on a CT scan of the chest with IV contrast dated 10/04/2022. Old healed right clavicular fracture. IMPRESSION: Increasing density in the left lung base with slight elevation of the left hemidiaphragm appearing since the prior examination. The changes are consistent with increasing left pleural effusion with loss of volume left lung base. Multiple acute left-sided rib fractures again noted unchanged. Multiple acute and chronic right-sided rib fractures. Both better seen on a recent CT scan of the chest with IV contrast administration dated 10/04/2022 at 8:34 PM. WSN: [id number] Ordering Physician: August Dictated By: Luis Sanabria MD, V Dictated Date/Time: 10/05/22 10:58 a Reviewed By: Luis Sanabria MD, V Signed By: Luis Sanabria MD, V Signed Date/Time: 10/05/22 10:58 am Transcribed By: JACKY Transcribed Date/Time: 10/05/22 10:[address] Chest W contrast IV * BHSPowerscrigarrett , CIS S: TRANSCDavid Priest MD: VERIFY Event Display: Result: Authored Date: [id number] CT Chest W/ Contrast INDICATION: Reason: Infection; Clinical Question(s): Abscess Empyema; Order Comment: TECHNIQUE: Helical CT scan of the chest with IV contrast, formatted in 3 planes. 75 cc of [id number] was administered intravenously. Weight-based protocol was performed using automatic exposure control. CTDIvol Body: 5.70 mGy, DLP Body: 223 mGy*cm. COMPARISON: CT chest with contrast 10/13/2022. FINDINGS: Paint Pourer view findings, lines and tubes: There are 2 apically directed left large bore pleural catheter is Trachea and airways: There is a moderate amount of debris within the left lower lobe bronchi with multifocal areas of airway plugging. There is resultant left lower lobe collapse. Lungs and pleura: Complete consolidation of the left lower lobe, unchanged from the prior exam. Hasbeen slight improved aeration of the left upper lobe and lingula. A small amount of ill-defined atelectasis and consolidation involving the inferior lingula remains. Trace-small left hydropneumothorax with a small volume of loculated fluid along the posteromedial margin and a few tiny punctate fociof gas within the fluid (26/201). There are also a few small locules along the left inferolateral hemithorax (61/201). No abnormal pleural enhancement to suggest empyema. Mild background centrilobular emphysema. No focal consolidation involving the right lung. Minimal scarring or atelectasis in the medial right upper lobe. Mediastinum and idalia: No mass or hematoma. Similar appearance of increased number of mediastinal and left hilar lymph nodes which are most likely reactive these include a 1.1cm subcarinal lymph node (46/201). No esophageal abnormality. Heart: Heart is at the upper limits of normal for size. No pericardial effusion. Aorta: Mild vascular calcification but no aneurysm. Four-vessel aortic arch, normal variant. Pulmonary arteries: Normal caliber. No evidence of pulmonary embolism on this study performed without angiographic technique. Chest wall soft tissues: Scattered areas of soft tissue gas in the left lateral chest wall, though decreased from the prior study. No abnormal fluid collection or abscess. Diaphragm: Intact. Upper abdomen: No significant abnormality. Bones: Unchanged. Duration and distribution of bilateral rib fractures involving ribs 3-10 on the left and 5-12 subacute fractures on the right, with an acute fracture of the posterior right eighth rib. Old healed right mid clavicle fracture. IMPRESSION: 1. Decreased now trace-small volume left hydropneumothorax. No evidence of empyema. 2. Persistent left lower lobe collapse with significant debris within the left lower lobe bronchi. Consider further assessment with bronchoscopy. 3. Improved aeration of the left upper lobe and lingula with a small amount of residual atelectasisin the inferior lingula and dependent portions of the left upper lobe. 4. Mild background centrilobular emphysema. 5. Decreased left lateral chest wall soft tissue emphysema. 6. No interval change in multiple bilateral rib fractures. WSN: [id number] Ordering Physician: Shwetha Panda Dictated By: David Navarro MD Dictated Date/Time: 10/17/22 1:29 pm Reviewed By: David Navarro MD Signed By: David Navarro MD Signed Date/Time: 10/17/22 1:29 pm Transcribed By: JACKY Transcribed Date/Time: 10/17/22 1:11 pm * LUCIEN Gauthier S: Marco Cartagena MD B: VERIFY Chau WEST, Ahmed: SIGN Event Display: Result: Authored Date: [id number] CT Chest W/ Contrast INDICATION: Reason: Trauma; Clinical Question(s): Other:; Order Comment: TECHNIQUE: Helical CT scan of the chest with IV contrast, formatted in 3 planes. 70 cc of [id number] was administered intravenously. Weight-based protocol was performed using automatic exposure control. CTDIvol Body: 6.20 mGy, DLP Body: 249 mGy*cm. COMPARISON: Chest radiographs 10/12/[address] 10/11/2022. FINDINGS: Paint Pourer view findings, lines and tubes: Status post insertion of a left anterior midlung drain. A previously seen left basal chest tube has been removed. Trachea and airways: Trace secretions are seen in the trachea and the bilateral mainstem bronchi. No definite distal mucous plugging. Otherwise, patent. Lungs and pleura: As compared to multiple priors, left-sided moderate multiloculated hydropneumothorax continues to demonstrate decrease in size, with near complete resolution of a left anteromedial component. Underlying atelectasis and left lung volume loss is still evident, with complete left lower lobe volume loss.. Large air focus posterior to the aorta is similar to multiple priors and likely is a component of the aforementioned hydropneumothorax (series 201:16). Minimal right centrilobular emphysema, otherwise right lung is clear. Mediastinum and idalia: No pathologically enlarged mediastinal or hilar lymphadenopathy. Esophagus ispatulous. Partially imaged thyroid is unremarkable. Heart: Heart is normal in size. Trace pericardial fluid without jj effusion. Aorta: Mild vascular calcification but no aneurysm. Four-vessel aortic arch with the left vertebralartery arising directly from the aorta, a normal anatomic variant. Pulmonary arteries: Normal caliber. No evidence of pulmonary embolism on this study performed without angiographic technique. Chest wall soft tissues: Left serratus muscle and probably latissimus dorsi intramuscular hematoma and extensive left-sided chest wall subcutaneous emphysema has slightly decreased from prior but remains extensive. Diaphragm: Intact. Upper abdomen: Oral contrast is seen in the colon. Markedly distended stomach without visualized obstructing lesion, which may be physiologic. The adrenal glands are normal bilaterally. No definite acute process. Bones: Redemonstrated left-sided mildly displaced comminuted 3rd through 10th rib fractures with 2 fracture lines at the 6 through 9th ribs suggestive of a flail chest. Subacute to chronic right 8th-12th rib fractures, with a suspected acute fracture of the right 8th rib (series 201:50). Chronic right distal clavicular fracture. Mild degenerative changes of the visualized spine. IMPRESSION: Decreased left-sided moderate multiloculated hydropneumothorax with near complete resolution of theleft anteromedial component, near site of insertion of a surgical drain. Unchanged marked left lung volume loss with complete collapse of the left lower lobe. Debris in the distal trachea and bilateral mainstem bronchi is unchanged. No definite distal mucousplugging. Redemonstrated left-sided mildly displaced comminuted 3rd through 10th rib fractures with at least 2 fracture lines involving the 6th through 9th rib suggestive of flail chest. Unchanged acute fracture right 8th rib and subacute to chronic right 8th-12th rib fractures, and right distal clavicular fracture. I have personally reviewed the images and I agree with this report. WSN: [id number] Ordering Physician: Alisia Butterfield Dictated By: Raquel Ritchie MD Dictated Date/Time: 10/13/22 7:05 am Reviewed By: Marco Nye MD Signed By: Marco Nye MD Signed Date/Time: 10/13/22 7:10 am Transcribed By: JACKY Transcribed Date/Time: 10/13/22 2:41 am * LUCIEN Gauthier S: Hugo Underwood MD J: VERIFY Kannan Sanches DO: SIGN Event Display: Result: Authored Date: [id number] CT Chest W/ Contrast INDICATION: Reason: Trauma; hemothorax. Left chest tube placement 10/06 and replaced 10/09 TECHNIQUE: Helical CT scan of the chest with IV contrast, formatted in 3 planes. 75 cc of [id number] was administered intravenously. Weight-based protocol was performed using automatic exposure control. CTDIvol Body: 8.40 mGy, DLP Body: 333 mGy*cm. COMPARISON: CT chest 10/06/2022 FINDINGS: Paint Pourer view findings, lines and tubes: Interval placement of a left basilar large bore chest tube, terminating at the medial lung base Trachea and airways: Mucous and debris in the left mainstem bronchus with variable areas of occlusion. Mild layering mucus in the right mainstem bronchus and bronchus intermedius. Lungs and pleura: * Overall moderate volume loculated left pleural collections containing fluid and air, increased from 10/06/2022. A new discrete collection anterior to the right upper lobe measures 4.2 x 2.4 x 4.2 cm. There are loculated collections expanding the fissure and extending down to the left lung base. * The oblique fissure is widened by loculated air and fluid without a definite pulmonary laceration. * Complete lobar atelectasis and opacification of the left lower lobe and large portions of the left upper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 displaced left posterior third, fourth, seventh, eighth rib fractures as well as anterior left sixth rib fracture. Mildly displaced posterior left sixth, ninth and 10th rib fractures. Nondisplaced left posterior fifth rib and anterior left fourth, fifth, seventh, eighth, ninth and 10th rib fractures. Chronic appearing right clavicular fracture. There is an acute nondisplaced fracture of the posterior right eighth rib. There are multiple subacute and chronic mildly displaced right sixth, seventh, eighth, ninth, 10th, 11th and 12th rib fractures. Moderate multilevel degenerative changes of the visualization portions of the spine. IMPRESSION: 1. Left apical pulmonary contusion. 2. Small left apical and medial pneumothorax. 3. Bilateral simple appearing pleural effusions. 4. Multiple new left-sided rib fractures and new fracture the posterior right eighth rib. 5. Diffuse subcutis emphysema along the left lateral chest wall and paraspinal soft tissues. 6. Hyperdense fluid collection in the right lower cervical region likely reflecting postoperative change. I have personally reviewed the images and I agree with this report. WSN: [id number] Ordering Physician: Clemente Hankins Dictated By: Roxanna Grimm MD Dictated Date/Time: 10/04/22 9:56 pm Reviewed By: Shwetha Thomson MD Signed By: Shwetha Thomson MD Signed Date/Time: 10/04/22 10:01 pm Transcribed By: JACKY Transcribed Date/Time: 10/04/22 9:54 pm Patient Care team information Care Team Personnel Name: Heather Keyes Position: [facility] RN Member Role: Primary Care Nurse Name: Eri Velasquez Position: [facility] RN Member Role: Primary Care Nurse Name: Kendra Ayala RN Position: [facility] RN Member Role: Primary Care Nurse Name: Tanya Howell RN Position: [facility] RN Member Role: Primary Care Nurse Name: Dl Gibson RN Position: [facility] RN Member Role: Primary Care Nurse Name: Not on Staff, PCP Position: [facility] Physician (General Medicine) Member Role: PCP Name: Sharri Sosa RN Position: [facility] RN Member Role: Primary Care Nurse Name: Cristofer Augustine Position: [facility] RN Member Role: Primary Care Nurse Name: Estelita Sigala RN Position: [facility] RN Member Role: Primary Care Nurse Name: Brianne Gamboa RN Position: [facility] RN Member Role: Primary Care Nurse [facility] Attending Position: [facility] ED Attendings Patient Name: Joan Nicole Position: [facility] ED RN W/OE and Tasks Member Role: Patient Care Provider Name: Patricia Hawthorne RN Position: [facility] ED RN W/OE and Tasks Member Role: Patient Care Provider Name: Marco Banda DO Position: S Resident Member Role: ED Resident Address: Address: [address] [place] [address] Name: Theresa Del Castillo Position: [facility] ED OA Charge Member Role: ED Associate Name: Ana María Stone Position: [facility] ED TA [facility] Member Role: Md Psychiatry Care Team Related Persons Name: EARL DIXONNETH Address: home [address] [place] [id number]
--- OUTSIDE RECORDS SUMMARY | 2023-03-29 02:37 | XMS_ITS | Continuity of Care Document ---
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 Name Role Phone Samuel Cruz MD Primary Care Physician Encounter [facility] Date(s): 01/28/21 - 01/29/[address] [address]- Encounter Diagnosis Chest wall pain(Final) - 01/28/21 Traumatic ecchymosis of chest(Final) - 01/28/21 Discharge Disposition: A-D/C Home Attending Physician: Juan Caal MD Admitting Physician: Juan Caal MD Referring Physician: Not on Staff, Referring MD Allergies, Adverse Reactions, Alerts Substance Reaction Severity Status Cats Active Pollen Active Immunizations Given and Recorded Vaccine Date Status Refusal Reason SARS-CoV-2 (COVID-19) Ad26 vaccine 12/22/20 Given tetanus/diphtheria/pertussis, acel(Tdap) 10/20/20 Given Problem List Condition Effective Dates Status Health Status Inform ant Intraparenchymal hemorrhage of brain(Confirmed) Active Results Radiology Reports * Exam Date Time Procedure Performing Provider Status 01/28/21 3:24 PM Chest Portable Piedad Curiel; Otis (Verified) Notes: (Chest Portable) Reason For Exam: Pain;Other: RESULT: Chest Portable Chest Portable INDICATION: Chest pain after trauma, rule out fracture COMPARISON: None. FINDINGS: LINES AND TUBES: None. LUNGS AND PLEURA: Clear lungs. Normal pulmonary vascularity. No pleural effusion. No pneumothorax. HEART, MEDIASTINUM AND JUANCARLOS: Heart is normal in size. Normal upper mediastinal and hilar contour. BONES AND SOFT TISSUES: Old healed right clavicle fracture. No acute fractures are identified. IMPRESSION: No acute abnormality. WSN: [id number] Ordering Physician: Cheryl Meier Dictated By: Maykel Estrada MD Dictated Date/Time: 01/28/21 3:28 pm Reviewed By: Maykel Estrada MD Signed By: Maykel Estrada MD Signed Date/Time: 01/28/21 3:28 pm Transcribed By: JACKY Transcribed Date/Time: 01/28/21 3:26 pm Vital Signs Most recent to oldest [Reference Range]: 1 2 3 Oxygen Saturation [94-100 %] 97 % (01/29/21 12:45 PM) 98 % (01/29/21 11:08 AM) 97 % (01/29/21 9:02 AM) Pulse Rate [55-90 bpm] 99 bpm *H* (01/29/21 12:45 PM) 92 bpm *H* (01/29/21 11:08 AM) 97 bpm *H* (01/29/21 9:02 AM) Blood Pressure [90-138/55-84 mm Hg] 148/89mm Hg *H* (01/29/21 12:45 PM) 142/85mm Hg *H* (01/29/21 11:08 AM) 141/86mm Hg *H* (01/29/21 9:02 AM) Respiratory Rate [16-30 br/min] 18 br/min (01/29/21 12:45 PM) 19 br/min (01/29/21 11:08 AM) 18 br/min (01/29/21 9:02 AM) Temperature [96.8-100.4 DegF] 98.3 DegF (01/29/21 12:45 PM) 98.8 DegF (01/29/21 11:08 AM) 98.1 DegF (01/29/21 8:53 AM) Liters per Minute 0 L/min (01/29/21 8:53 AM) Mode of Delivery (Oxygen) Room air (01/29/21 12:45 PM) Room air (01/29/21 11:08 AM) Room air (01/29/21 9:02 AM) Blood pressure sites Arm, right (01/29/21 12:45 PM) Arm, right (01/29/21 11:08 AM) Arm, right (01/29/21 9:02 AM) Temperature Route Oral (01/29/21 12:45 PM) Oral (01/29/21 11:08 AM) Oral (01/29/21 8:53 AM) Social History Social History Type Response Smoking Status 10 or more cigarette s (1/2 pack or more)/day in last 30 days entered on: 05/31/18 Sex
--- OUTSIDE RECORDS SUMMARY | 2023-03-29 02:37 | XMS_ITS ---
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 location on the plastic shell, so it extends past the edges of the brace.??3. Adjust the pads as needed to make sure no plastic touches the skin.?REAPPLICATIONIf you are applying by yourself lay flat and try to keep your head and neck as straight as possible. If you have a helper, he or she can put the collar on while you concentrate on keeping your head and neck straight. If you have long hair, it should remain outside of the cervical collar. If you wear earrings, they should be removed before applying the brace.?(Image 2)??1. production support developer the front piece of the cervical collar. Pre-form the back ends of the side panels by squeezing them forcefully so they stay curved when released as shown in the picture (Image2)??2. Position the chin piece directly under the chin.??3. Push the sides of the front panel up over the shoulder muscles and around the neck.??4. Check to see that the back of the chin piece is notpressing inward on the throat. If it is, lift the back ends of the side panels up, off of the shoulder/ neck muscles. This should move the chin piece forward, away from the throat.?? (Image 3)??5. While holding the front panel in place, attach the Velcro straps from the back panel to each side of the cervical collar. Be sure to note the position of the back panel and ensure that it is centered on the back of your neck. To tighten the collar, anchor your thumb or fingers in the tracheal opening and peel back the Velcro strap on one side. Push inward on the back edge of the side panel while pulling the loop strap out.??Now lift the strap out and re-attach it to the Velcro. Keep the back panel centered by tightening the other side equally. Repeat until all of the ???slack?? has been removed and a secure fit has been achieved.?(Image 4) ??When the cervical collar is properly re-applied, your chin will be centered in the chin piece, with the chin flush to the front of the plastic. The sides and the back panel will overlap the sides of the front piece. No plastic should touch any part of your skin. A properly applied collar looks like the photos below.?Other instructions ??? Wear your collar at all times, except when changing padding, until your follow up appointment ??? Keep your collar properly tightened ??? Do not drive or operate machinery ??? Avoid strenuous activities ??Contact A Caregiver If: ??? You have signs of a pressure sore under the collar. These signs may include red, painful, and open areas of skin ??? You have chest pain or trouble breathing that is getting worse over time. ? * Event Display: Discharge/Transfer Note Hospital Authored Date: MR Cervical spine WO contrast * LUCIEN Gauthier S: Meera Crouch MD: VERIFY Event Display: Result: Authored Date: [id number] MRI Cervical Spine W/O Contrast Reason: Pain Trauma; Clinical Question(s): Fracture Dislocation; Order Comment: Please see Reference Text for complete list of contraindications Fracture/Dislocation TECHNIQUE: MRI of the cervical spine was performed without intravenous contrast utilizing sagittal T1, sagittal T2, sagittal STIR, axial gradient echo, and axial T2-weighted sequences. COMPARISON: CT cervical spine of 09/25/2022 FINDINGS: ALIGNMENT, VERTEBRAE, MARROW, AND DISCS: There is 4 mm anterolisthesis of L4 on L5. Better appreciated on recent CT scan, there is a fracture of the posterior inferior C4 vertebra extending into the right pedicle. An additional fracture of the left lamina extending into the inferior articulating facet is also present. Please refer to CT cervical spine for additional details. There is widening of t he C4-C5 intervertebral disc space with increased signal within the disc most likely a combination of hematoma and edema. There is also abnormal signal in the anterior and posterior ligaments at C4-C5 indicating tears. There are is partial fusion of the left-sided C3-C4 facet joint. There is cervical spine alignment is otherwise maintained. The vertebral body heights are otherwise preserved. There is T1 and T2 hyperintense signal in the C5, C6, C7 compatible with Modic type II endplate changes.The discs are desiccated at the other levels. POSTERIOR FOSSA AND CORD: Incompletely visualized in the left middle cranial fossa, there is T2 hyperintensity in the temporal white matter with relative preservation of the cortex. The visualized brain is otherwise unremarkable. Within the confines of motion, there is no definite abnormal signal within the cervical cord. In addition, the level of C4-C5, there is subtle high signal within the anterior epidural soft tissues measuring approximately 3 mm at its maximum thickness most likely representing a small epidural hematoma. Abnormal signal within the anterior epidural space is also present extending from C1-C2 tothe level of C4- C5. There is asymmetric T2/STIR hyperintense signal in the posterior epidural soft tissues from C3-C4 extending to at least T1-T2, with its maximum thickness at the level of C4-C5 measuring approximately 4 mm most likely representing edema/hematoma. There may be ligamentum flavum disruption on the right at C2-C3 and C3-C4, suboptimally evaluated due to motion. There is also C4-C5 ligamentum flavum injury. The craniocervical junction is patent. Due to the epidural edema/hematoma, there is moderate narrowing of the thecal sac at C2-C3, C3-C4, C5-C6, and moderate to severe narrowing of the thecal sac at C4-C5. PARASPINAL TISSUES: There is T2 hyperintensity in the prevertebral soft tissues measuring up to 7 mm in thickness extending from C2 through T1. There is also abnormal T2/STIR signal in the paraspinalmusculature from the occipital region extending inferiorly to the level of C7 most likely representing extensive muscle consultation. There is abnormal signal within the C3-C4 and C4-C5 interspinous soft tissues most compatible with ligamentous injury. There is also high signal immediately posterior frontal and C1-C2 through at least C5 abutting the spinous processes indicating supraspinous ligament injury. In addition, there is abnormal T2 signal anterior to the C1-C2 junction extending into the C1-C2 lateral mass junction probably an effusion. There is loss of signal of the left vertebral artery flow void indicating occlusion/injury. There is mucosal thickening of the right maxillary sinus. DETAILED FINDINGS BY LEVEL: C2-C3: There is posterior endplate spurring and a minimal disc bulge which in conjunction with facet joint arthropathy and concentric epidural thickening results in moderate canal stenosis without abnormal signal within the cord. There are uncovertebral spurs and facet degenerative stroke but the resulting in severe left and mild to moderate right foraminal stenosis. C3-C4: There is posterior endplate spurring without significant disc bulging. There is moderate canal narrowing due to concentric epidural thickening. There are uncovertebral and facet joint spurs resulting in moderate left and no significant right foraminal stenosis. C4-C5: There are posterior endplate spurs and a fracture fragment better appreciated on concurrent CT scan. In conjunction with concentric epidural hematoma results in moderate to severe canal stenosis without abnormal signal within the cord. There are uncovertebral and facet joint spurs resulting in severe bilateral foraminal stenosis. C5-C6: There are posterior endplate spurs and a mild broad-based disc protrusion most pronounced tothe left of the midline resulting in moderate canal stenosis in conjunction with concentric epidural thickening. Uncovertebral and facet joint spurs are noted resulting in severe bilateral foraminal stenosis. C6-C7: There are posterior endplate spurs without significant disc bulging. There is mild concentric epidural thickening which represents edema/hematoma. There is mild canal stenosis. There are uncovertebral and facet joint spurs resulting in moderate bilateral foraminal stenosis. C7-T1: No significant canal stenosis or neural foraminal narrowing. There is mild facet joint arthropathy. The disc is relatively preserved. IMPRESSION: C4 fractures, better appreciated on concurrent CT scan with associated widening of the C4-C5 disc with abnormal signal suggesting disc injury/hematoma. ALL and PLL injury at C4-C5. Concentric epidural thickening in the cervical spine most pronounced at C4-C5 but seen anteriorly from C1-C2 through at least C4-C5 and posteriorly from C2-C3 to at least T1-T2 resulting in overall moderate canal stenosis throughout the cervical spine with focal moderate to severe compression of the thecal sac at C4-C5 without abnormal signal within the cord. Extensive abnormal signal within the posterior paraspinal soft tissues from the craniovertebral junction to the level of T1 most likely representing muscle contusion/muscle strain. Abnormal signal within the interspinous soft tissues at C3-C4 and C4-C5 most compatible with interspinous ligamentous injury. Abnormal signal of the supraspinous ligament from C1-C2 to at least C5-C3vrtpntoufs additional supraspinous ligament tear/injury. Likely ligamentum flavum tear at C2-C3, C3- C4, and C4-C5. Extensive prevertebral edema/hematoma from C2 through at least C6. Left vertebral artery injury/occlusion. Incompletely visualized abnormal signal in the inferior left temporal white matter. A dedicated MRIof the brain is advised to better characterize the brain parenchyma. An orange message was sent to communicate this finding. C1-C2 joint effusions probably degenerative in nature rather than traumatic. A similar preliminary report was provided by [facility] at 6:42 AM on 09/27/2022. The temporal lobe abnormality was not mentioned in the preliminary report. An orange message was sent. An actionable message ([place]) has been communicated via the [employer] system on 09/27/2022 8:34 AM, Message ID [id number]. WSN: [id number] Ordering Physician: Tanya Duran Dictated By: Meera Torres MD Dictated Date/Time: 09/27/22 8:34 am Reviewed By: Meera Torres MD Signed By: Meera Torres MD Signed Date/Time: 09/27/22 8:34 am Transcribed By: JACKY Transcribed Date/Time: 09/27/22 7:29 am Radiology * LUCIEN Gauthier S: TRANSCJuan Lang MD: VERIFY Event Display: Result: Authored Date: Cervical Spine 3 Views or Less, C-Arm > 1 Hour Reason: cervical fracture; Special Instructions: [id number] 00:52.8F.T. [id number] COMPARISON: None. FINDINGS/IMPRESSION: Multiple intraoperative fluoroscopic spot images of the cervical spine during C4-C5 anterior fusion Technologist time: 1 5 minutes Fluoroscopy time: 53 seconds WSN: [id number] Ordering Physician: Shanon Osman Dictated By: Juan Keene MD Dictated Date/Time: 09/27/22 11:10 a Reviewed By: Juan Keene MD Signed By: Juan Keene MD Signed Date/Time: 09/27/22 11:10 am Transcribed By: JACKY Transcribed Date/Time: 09/27/22 11:07 am XR Cervical spine Views * LUCIEN Gauthier S: TRANSCJuan Lang MD: VERIFY Event Display: Result: Authored Date: [id number] Cervical Spine 3 Views or Less, C-Arm > 1 Hour Reason: cervical fracture; Special Instructions: [id number] 00:52.8F.T. [id number] COMPARISON: None. FINDINGS/IMPRESSION: Multiple intraoperative fluoroscopic spot images of the cervical spine during C4-C5 anterior fusion Technologist time: 1 5 minutes Fluoroscopy time: 53 seconds WSN: [id number] Ordering Physician: Shanon Osman Dictated By: Juan Keene MD Dictated Date/Time: 09/27/22 11:10 a Reviewed By: Juan Keene MD Signed By: Juan Keene MD Signed Date/Time: 09/27/22 11:10 am Transcribed By: JACKY Transcribed Date/Time: 09/27/22 11:07 am MR Brain WO and W contrast IV * BHSPowerscribe , CIS S: TRANSCRIBE Anjelica Mccain MD: VERIFY Event Display: Result: Authored Date: MRI Brain W+W/O Contrast INDICATION / CLINICAL QUESTION: Reason: Tumor Primary; Clinical Question(s): Tumor Primary; SpecialInstructions: Stealth protocol; Order Comment: Please see Reference Text for complete list of contraindications Tumor Primary Per EMR: Status post cervical spine fracture and fixation. Signal abnormality in the inferior left temporal lobe noted on MRI cervical spine. TECHNIQUE: MRI of the brain was performed with and without contrast utilizing sagittal and axial T1, axial T2, axial FLAIR, axial SWAN, 3-D T2 CUBE, and axial DWI sequences, and post-contrast 3D T1 RUBIO with multiplanar reformats. 13 mL of Clariscan was administered intravenously. COMPARISON: MRI cervical spine, 09/26/2022. CT head, 09/25/2022. FINDINGS: BRAIN and EXTRA-AXIAL SPACES: In the area of concern in the left inferior lateral temporal lobe the MRI cervical spine, there is a focal area of encephalomalacia in the left temporal lobe with trace associated hemosiderin staining and cortical disruption. Multiple additional areas of encephalomalacia with associated susceptibility artifact/hemosiderin staining are present in the brain bilaterally, greatest in the superior medial right frontal lobe and left frontal operculum corresponding to sites of hemorrhage seen on priorCT in 07/13/2013. Additional punctate foci of susceptibility artifact compatible with microhemorrhageare present in the superior medial left frontal lobe, right posterior lateral temporal lobe, and likely the left posterior lateral temporal lobe. Evaluation is mildly degraded by motion. No acute space-occupying intracranial hemorrhage is seen. There is no mass effect, midline shift, or effacement of the basal cisterns. On diffusion weighted imaging, there are no regions of restricted diffusion to indicate an acute or subacute infarct. Moderate patchy T2 prolongation is seen in the periventricular, deep, and subcortical white matter, as well as the mid agatha. The midline structures are unremarkable. Ventricles, cisterns, and sulci are moderately prominent, consistent with volume loss, without hydrocephalus. No abnormal intracranial extra-axial fluid collections are seen. Meningeal surfaces are normal. No abnormal intracranial enhancement is seen. There is loss of the left vertebral artery flow-void in the visualized V3 and proximal V4 segment, corresponding to occlusion more fully evaluated on CTA. EXTRACRANIAL SOFT TISSUES: Medialization of the left lamina papyracea is compatible with chronic prior orbital blowout fracture. Orbits are otherwise unremarkable. Minimal scattered mucosal thickening is seen in the paranasal sinuses without fluid levels. Mastoids are unremarkable. There is partial visualization of paraspinal and prevertebral edema, more fully assessed on prior MRI cervical spine. BONES: Marrow signal is preserved in the calvarium and skull base. Effusion at the atlantooccipitaljunction is partially visualized, left greater than right. There is partial visualization of anterior cervical fusion hardware at C4-C5, inferior aspect of hardware below the [id number], with evaluation distorted by susceptibility artifact and incomplete visualization . Known cervical spinal fractures were better evaluated on prior dedicated cervical spine imaging. Known epidural hematoma in the cervical spine is partially visualized. IMPRESSION: 1. The area of signal abnormality in the left inferior temporal lobe seen on MRI cervical spine corresponds to a small area of encephalomalacia and hemosiderin staining, consistent with chronic priorinjury. No mass at this site or elsewhere in the brain. 2. Multiple additional areas of encephalomalacia and hemosiderin staining consistent with chronic sequelae of prior intracranial hemorrhage. No acute intracranial hematoma. 3. Partial visualization of known epidural hematoma in the cervical spine, status post cervical fusion, with paraspinal and prevertebral edema. Cervical fractures or better evaluated on prior dedicated cervical spine imaging. 4. 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 WSN: [id number] Ordering Physician: Heather Smiley Dictated By: Anjelica Mccain MD Dictated Date/Time: 09/29/22 10:21 a Reviewed By: Anjelica Mccain MD Signed By: Anjelica Mccain MD Signed Date/Time: 09/29/22 10:21 am Transcribed By: JACKY Transcribed Date/Time: 09/29/22 9:58 am Portable XR Chest Views * PRINCEGamarscwaqar , CIS S: TRANSCRIBE Tiffany Ackerman MD: VERIFY Event Display: Result: Authored Date: [id number] Chest Portable CLINICAL INDICATION: Reason: Other:; Pain; Clinical Question(s): Other:; Fracture, pneumothorax, pulmonary contusion COMPARISON: None available. FINDINGS: Cervical collar is in place. The cardiac silhouette is within normal limits. Hilar and mediastinal contours are normal. The lungs are clear. There is no pleural effusion or definite pneumothorax on this supine film. There is a fracture through the left 7th posterior rib, of indeterminate age. Old right midclavicular fracture is seen with callus. IMPRESSION: Fracture through the left 7th posterior rib, of indeterminate age. Clear lungs. WSN: [id number] Ordering Physician: June Black Dictated By: Tiffany Ackerman MD Dictated Date/Time: 09/25/22 9:11 am Reviewed By: Tiffany Ackerman MD Signed By: Tiffany Ackerman MD Signed Date/Time: 09/25/22 9:11 am Transcribed By: JACKY Transcribed Date/Time: 09/25/22 9:08 am XR Tibia and Fibula - left 2 Views * Abrahan , CIS S: TRANSCRIBE Luciano Lucio MD S: VERIFY Jose C Peters MD: SIGN Event Display: Result: Authored Date: [id number] Tibia/Fibula 2 Views Left REASON: Trauma; with Pain. CLINICAL QUESTION(S): Fracture. COMPARISON: None. FINDINGS: No fractures or bone lesions. Mild enthesophytosis at the insertion of the quadriceps tendon on the patella. Mild enthesophytosisof the Achilles tendon at its insertion on the calcaneus. Visualized joints are normal. Normal soft tissues. IMPRESSION: No acute fracture or dislocation. I have personally reviewed the images and I agree with this report. WSN: [id number] Ordering Physician: June Black Dictated By: Jose C Peters MD Dictated Date/Time: 09/25/22 9:38 am Reviewed By: Luciano Lucio MD Signed By: Luciano Lucio MD Signed Date/Time: 09/25/22 9:43 am Transcribed By: JACKY Transcribed Date/Time: 09/25/22 9:30 am CTA Neck vessels W contrast IV * [facility]SP[facility]ers[facility] , CIS S: TRANSCRIBE Anjelica Mccain MD: VERIFY Event Display: Result: Authored Date: [id number] CT Angio Neck Reason: Trauma; Clinical Question(s): Other:; dissection, hematoma / Other: Known cervical spine fractures. TECHNIQUE: CT angiogram of the neck was performed after bolus administration of intravenous contrast. 100 mL of Omnipaque 300 was administered intravenously. Coronal and sagittal MIP reformatted images were obtained. Additional 3-D images were created on a separate workstation under concurrent supervision by the attending radiologist. All stenoses are measured using NASCET criteria. Weight- based protocol using automatic tube modulation was used to optimize exposure parameters. RADIATION DOSE PARAMETERS: CTDIvol Body: 7.93 mGy, DLP Body: 796 mGy*cm. COMPARISON: Noncontrast CT head and CT cervical spine performed on the same date. FINDINGS: CTA OF THE NECK: Arch: There is a four vessel aortic arch, with direct origin of the left vertebral artery from the aorta. There is mild atherosclerotic plaque of the aortic arch, but origins of the supra aortic vessels are patent. There is mild narrowing of the proximal left subclavian artery. Right carotid system: The common carotid and cervical internal carotid arteries are patent, though mildly degraded by motion in the neck. There is calcified atherosclerotic plaque at the carotid bifurcation, but no ICA stenosis (0%) by NASCET criteria. There is no dissection or aneurysm. Left carotid system: The common carotid and cervical internal carotid arteries are patent, though mildly degraded by motion. There is calcified atherosclerotic plaque at the carotid bifurcation, resulting in mild ICA stenosis (approximately 35%) by NASCET criteria. There is no dissection or aneurysm. There is a right-dominant vertebral artery system. Right vertebral: No significant stenosis. No evidence of dissection or aneurysm. Left vertebral: The vertebral artery is patent at its origin, but fades to complete occlusion in the V1 segment, and remains occluded throughout the majority of the V1, V2, V3 segments. There is minimal short segment crescentic filling of the left vertebral artery at the level of C3-4, possibly outlining an intraluminal filling defect (402:290), followed by additional segment of occlusion. There is minimal attenuated reconstitution in the distal V3 segment via retrograde flow. Visualized intracranial arteries: Bilateral intracranial internal carotid arteries demonstrate mildatherosclerotic calcification but no significant stenosis. Proximal ICA and MCA branches are patent. Right A1 segment is hypoplastic. Bilateral intracranial vertebral arteries are patent, with attenuated filling on the left compared to the right, likely filled retrograde from the vertebrobasilar junction. There is preserved filling of the left PICA. The bas ilar artery and bilateral proximal SCA and FUNDS DEVELOPMENT DIRECTOR branches are patent. Other: Soft tissues and bones: Cervical spine fractures of C3-C5 are noted, as well as perched left C4-5 facet and traumatic grade 1 anterolisthesis of C4 on C5, more fully described on the dedicated CT cervical spine of 09/25/2022 at 3:12 AM, without significant change. Chronic right clavicular fracture is noted. Multilevel degenerative changes of the cervical spine are also noted. No evidence of lymphadenopathy or mass. The thyroid is unremarkable. Mild emphysematous changes are noted in the visualized upper lungs. There is mild apical scarring. No significant superimposed air space opacity. Multiple dental caries are noted in the remaining mandibular teeth. Mild mucosal thickening is seen in theright maxillary sinus. IMPRESSION: 1. Traumatic left vertebral artery occlusion, in the setting of C3-C5 fractures and perched left C4-5 facet. 2. Mild left cervical ICA stenosis. The impression 1 above was relayed to Dr. Smith of the trauma service by Dr. Mccain over the phoneon 09/25/2022 at 9:47 AM. WSN: [id number] Ordering Physician: June Black Dictated By: Anjelica Mccain MD Dictated Date/Time: 09/25/22 10:22 a Reviewed By: Anjelica Mccain MD Signed By: Anjelica Mccain MD Signed Date/Time: 09/25/22 10:22 am Transcribed By: JACKY Transcribed Date/Time: 09/25/22 9:[address] Lumbar spine W contrast IV * Abrahan , LUCIEN S: PAM Willis MD, Marielle H: VERIFY Event Display: Result: Authored Date: [id number] CT Chest W/ Contrast, CT Thoracic Spine W/ Contrast, CT Abd/Pelvis W/ IV Contrast Only, CT Lumbar Spine W/ Contrast INDICATION: Reason: Other:; Chest trauma, blunt; Clinical Question(s): Other:; Aortic hilar injury TECHNIQUE: Helical CT scan of the chest, abdomen, and pelvis with IV contrast, formatted in 3 planes. The original dataset was reconstructed with a small field of view around the thoracic and lumbar spine utilizing soft tissue and bone algorithm reconstructions in 3 planes. 100 cc of Omnipaque 300 was administered intravenously. This study was performed without oral contrast. Weight-based protocol was performed using automatic exposure control. CTDIvol Body: 7.92 mGy, DLP Body: 796 mGy*cm. COMPARISON: None. FINDINGS: Accounts Receivable Processor view findings, lines and tubes: None. Trachea and airways: Patent without evidence of tracheal or endobronchial lesion. Lungs and pleura: Clear lungs. No effusion or pneumothorax. Mediastinum and idalia: No mass or hematoma. No mediastinal or hilar lymphadenopathy. No esophageal abnormality. There is a small hiatal hernia. Heart: Heart is normal in size. No pericardial effusion. Aorta: No aortic aneurysm. Pulmonary arteries: Normal caliber. No evidence of pulmonary embolism on this study performed without angiographic technique. Chest wall soft tissues: No acute abnormality. Diaphragm: Intact. Liver: Liver is mildly fatty infiltrated. No suspicious lesion. Gallbladder: No CT evidence of gallbladder pathology. Bile ducts: No biliary ductal dilation. Spleen: Normal in size. Pancreas: No suspicious lesion or ductal dilatation. Adrenal glands: No nodule. Kidneys and ureters: No hydronephrosis, stone, or suspicious lesion. Bladder: No wall thickening or surrounding stranding. Reproductive organs: Unremarkable. Stomach, small bowel, and large bowel: Normal caliber stomach and bowel loops. No surrounding inflammatory changes. Moderate amount of stool throughout colon. Appendix: No evidence of acute appendicitis. Peritoneum and retroperitoneum: No ascites or pneumoperitoneum. No omental or mesenteric lesions. Lymph nodes: No enlarged lymph nodes. Blood vessels: No vascular calcifications or aneurysm. No evidence of venous thrombosis. Abdominal and pelvic wall soft tissues: No acute abnormality. Bones: Old healed fracture deformity of the right fifth, sixth, and seventh ribs. There is healing fracture of the right eighth and ninth rib. There is a healed old rib fracture involving right 10th and 11th ribs. No acute rib fracture identified. Old healed fracture deformity of the left seventh, eighth, ninth and 10th ribs. Thoracic spine: No fracture or subluxation. Discogenic degenerative disease throughout the thoracicspine. Multiple Schmorl's nodes within the mid to lower thoracic spine. No perivertebral soft tissue abnormality. Lumbar spine: No fracture or subluxation. Osteoarthritis of bilateral SI joints. Discogenic degenerative disease throughout the lumbar spine, but most prominently at L5-S1. There is mild anterolisthesis of L4 on L5. IMPRESSION: No traumatic injury to the chest, abdomen, or pelvis. Healing rib fracture involving the right eighth and ninth ribs. Multiple old healed bilateral rib fracture deformities. No thoracic or lumbar spine fracture or subluxation. An actionable message ([place]) has been communicated via the [employer] system on 09/25/2022 9:58 AM, Message ID [id number]. WSN: [id number] Ordering Physician: June Black Dictated By: Marielle Willis MD Dictated Date/Time: 09/25/22 9:59 am Reviewed By: Marielle Willis MD Signed By: Marielle Willis MD Signed Date/Time: 09/25/22 9:59 am Transcribed By: JACKY Transcribed Date/Time: 09/25/22 9:[address] Abdomen and Pelvis W contrast IV * [facility] , CIS S: TRANSCRIBE Marielle Willis MD: VERIFY Event Display: Result: Authored Date: [id number] CT Chest W/ Contrast, CT Thoracic Spine W/ Contrast, CT Abd/Pelvis W/ IV Contrast Only, CT Lumbar Spine W/ Contrast INDICATION: Reason: Other:; Chest trauma, blunt; Clinical Question(s): Other:; Aortic hilar injury TECHNIQUE: Helical CT scan of the chest, abdomen, and pelvis with IV contrast, formatted in 3 planes. The original dataset was reconstructed with a small field of view around the thoracic and lumbar spine utilizing soft tissue and bone algorithm reconstructions in 3 planes. 100 cc of Omnipaque 300 was administered intravenously. This study was performed without oral contrast. Weight-based protocol was performed using automatic exposure control. CTDIvol Body: 7.92 mGy, DLP Body: 796 mGy*cm. COMPARISON: None. FINDINGS: Accounts Receivable Processor view findings, lines and tubes: None. Trachea and airways: Patent without evidence of tracheal or endobronchial lesion. Lungs and pleura: Clear lungs. No effusion or pneumothorax. Mediastinum and idalia: No mass or hematoma. No mediastinal or hilar lymphadenopathy. No esophageal abnormality. There is a small hiatal hernia. Heart: Heart is normal in size. No pericardial effusion. Aorta: No aortic aneurysm. Pulmonary arteries: Normal caliber. No evidence of pulmonary embolism on this study performed without angiographic technique. Chest wall soft tissues: No acute abnormality. Diaphragm: Intact. Liver: Liver is mildly fatty infiltrated. No suspicious lesion. Gallbladder: No CT evidence of gallbladder pathology. Bile ducts: No biliary ductal dilation. Spleen: Normal in size. Pancreas: No suspicious lesion or ductal dilatation. Adrenal glands: No nodule. Kidneys and ureters: No hydronephrosis, stone, or suspicious lesion. Bladder: No wall thickening or surrounding stranding. Reproductive organs: Unremarkable. Stomach, small bowel, and large bowel: Normal caliber stomach and bowel loops. No surrounding inflammatory changes. Moderate amount of stool throughout colon. Appendix: No evidence of acute appendicitis. Peritoneum and retroperitoneum: No ascites or pneumoperitoneum. No omental or mesenteric lesions. Lymph nodes: No enlarged lymph nodes. Blood vessels: No vascular calcifications or aneurysm. No evidence of venous thrombosis. Abdominal and pelvic wall soft tissues: No acute abnormality. Bones: Old healed fracture deformity of the right fifth, sixth, and seventh ribs. There is healing fracture of the right eighth and ninth rib. There is a healed old rib fracture involving right 10th and 11th ribs. No acute rib fracture identified. Old healed fracture deformity of the left seventh, eighth, ninth and 10th ribs. Thoracic spine: No fracture or subluxation. Discogenic degenerative disease throughout the thoracicspine. Multiple Schmorl's nodes within the mid to lower thoracic spine. No perivertebral soft tissue abnormality. Lumbar spine: No fracture or subluxation. Osteoarthritis of bilateral SI joints. Discogenic degenerative disease throughout the lumbar spine, but most prominently at L5-S1. There is mild anterolisthesis of L4 on L5. IMPRESSION: No traumatic injury to the chest, abdomen, or pelvis. Healing rib fracture involving the right eighth and ninth ribs. Multiple old healed bilateral rib fracture deformities. No thoracic or lumbar spine fracture or subluxation. An actionable message ([place]) has been communicated via the [employer] system on 09/25/2022 9:58 AM, Message ID [id number]. WSN: [id number] Ordering Physician: June Black Dictated By: Marielle Willis MD Dictated Date/Time: 09/25/22 9:59 am Reviewed By: Marielle Willis MD Signed By: Marielle Willis MD Signed Date/Time: 09/25/22 9:59 am Transcribed By: JACKY Transcribed Date/Time: 09/25/22 9:[address] Thoracic spine W contrast IV * [facility] , CIS S: TRANSCRIBE Marielle Willis MD: VERIFY Event Display: Result: Authored Date: [id number] CT Chest W/ Contrast, CT Thoracic Spine W/ Contrast, CT Abd/Pelvis W/ IV Contrast Only, CT Lumbar Spine W/ Contrast INDICATION: Reason: Other:; Chest trauma, blunt; Clinical Question(s): Other:; Aortic hilar injury TECHNIQUE: Helical CT scan of the chest, abdomen, and pelvis with IV contrast, formatted in 3 planes. The original dataset was reconstructed with a small field of view around the thoracic and lumbar spine utilizing soft tissue and bone algorithm reconstructions in 3 planes. 100 cc of Omnipaque 300 was administered intravenously. This study was performed without oral contrast. Weight-based protocol was performed using automatic exposure control. CTDIvol Body: 7.92 mGy, DLP Body: 796 mGy*cm. COMPARISON: None. FINDINGS: Accounts Receivable Processor view findings, lines and tubes: None. Trachea and airways: Patent without evidence of tracheal or endobronchial lesion. Lungs and pleura: Clear lungs. No effusion or pneumothorax. Mediastinum and idalia: No mass or hematoma. No mediastinal or hilar lymphadenopathy. No esophageal abnormality. There is a small hiatal hernia. Heart: Heart is normal in size. No pericardial effusion. Aorta: No aortic aneurysm. Pulmonary arteries: Normal caliber. No evidence of pulmonary embolism on this study performed without angiographic technique. Chest wall soft tissues: No acute abnormality. Diaphragm: Intact. Liver: Liver is mildly fatty infiltrated. No suspicious lesion. Gallbladder: No CT evidence of gallbladder pathology. Bile ducts: No biliary ductal dilation. Spleen: Normal in size. Pancreas: No suspicious lesion or ductal dilatation. Adrenal glands: No nodule. Kidneys and ureters: No hydronephrosis, stone, or suspicious lesion. Bladder: No wall thickening or surrounding stranding. Reproductive organs: Unremarkable. Stomach, small bowel, and large bowel: Normal caliber stomach and bowel loops. No surrounding inflammatory changes. Moderate amount of stool throughout colon. Appendix: No evidence of acute appendicitis. Peritoneum and retroperitoneum: No ascites or pneumoperitoneum. No omental or mesenteric lesions. Lymph nodes: No enlarged lymph nodes. Blood vessels: No vascular calcifications or aneurysm. No evidence of venous thrombosis. Abdominal and pelvic wall soft tissues: No acute abnormality. Bones: Old healed fracture deformity of the right fifth, sixth, and seventh ribs. There is healing fracture of the right eighth and ninth rib. There is a healed old rib fracture involving right 10th and 11th ribs. No acute rib fracture identified. Old healed fracture deformity of the left seventh, eighth, ninth and 10th ribs. Thoracic spine: No fracture or subluxation. Discogenic degenerative disease throughout the thoracicspine. Multiple Schmorl's nodes within the mid to lower thoracic spine. No perivertebral soft tissue abnormality. Lumbar spine: No fracture or subluxation. Osteoarthritis of bilateral SI joints. Discogenic degenerative disease throughout the lumbar spine, but most prominently at L5-S1. There is mild anterolisthesis of L4 on L5. IMPRESSION: No traumatic injury to the chest, abdomen, or pelvis. Healing rib fracture involving the right eighth and ninth ribs. Multiple old healed bilateral rib fracture deformities. No thoracic or lumbar spine fracture or subluxation. An actionable message ([place]) has been communicated via the [employer] system on 09/25/2022 9:58 AM, Message ID [id number]. WSN: [id number] Ordering Physician: June Black Dictated By: Marielle Willis MD Dictated Date/Time: 09/25/22 9:59 am Reviewed By: Marielle Willis MD Signed By: Marielle Willis MD Signed Date/Time: 09/25/22 9:59 am Transcribed By: JACKY Transcribed Date/Time: 09/25/22 9:[address] Chest W contrast IV * [facility] , CIS S: TRANSCRIBE Marielle Willis MD: VERIFY Event Display: Result: Authored Date: [id number] CT Chest W/ Contrast, CT Thoracic Spine W/ Contrast, CT Abd/Pelvis W/ IV Contrast Only, CT Lumbar Spine W/ Contrast INDICATION: Reason: Other:; Chest trauma, blunt; Clinical Question(s): Other:; Aortic hilar injury TECHNIQUE: Helical CT scan of the chest, abdomen, and pelvis with IV contrast, formatted in 3 planes. The original dataset was reconstructed with a small field of view around the thoracic and lumbar spine utilizing soft tissue and bone algorithm reconstructions in 3 planes. 100 cc of Omnipaque 300 was administered intravenously. This study was performed without oral contrast. Weight-based protocol was performed using automatic exposure control. CTDIvol Body: 7.92 mGy, DLP Body: 796 mGy*cm. COMPARISON: None. FINDINGS: Accounts Receivable Processor view findings, lines and tubes: None. Trachea and airways: Patent without evidence of tracheal or endobronchial lesion. Lungs and pleura: Clear lungs. No effusion or pneumothorax. Mediastinum and idalia: No mass or hematoma. No mediastinal or hilar lymphadenopathy. No esophageal abnormality. There is a small hiatal hernia. Heart: Heart is normal in size. No pericardial effusion. Aorta: No aortic aneurysm. Pulmonary arteries: Normal caliber. No evidence of pulmonary embolism on this study performed without angiographic technique. Chest wall soft tissues: No acute abnormality. Diaphragm: Intact. Liver: Liver is mildly fatty infiltrated. No suspicious lesion. Gallbladder: No CT evidence of gallbladder pathology. Bile ducts: No biliary ductal dilation. Spleen: Normal in size. Pancreas: No suspicious lesion or ductal dilatation. Adrenal glands: No nodule. Kidneys and ureters: No hydronephrosis, stone, or suspicious lesion. Bladder: No wall thickening or surrounding stranding. Reproductive organs: Unremarkable. Stomach, small bowel, and large bowel: Normal caliber stomach and bowel loops. No surrounding inflammatory changes. Moderate amount of stool throughout colon. Appendix: No evidence of acute appendicitis. Peritoneum and retroperitoneum: No ascites or pneumoperitoneum. No omental or mesenteric lesions. Lymph nodes: No enlarged lymph nodes. Blood vessels: No vascular calcifications or aneurysm. No evidence of venous thrombosis. Abdominal and pelvic wall soft tissues: No acute abnormality. Bones: Old healed fracture deformity of the right fifth, sixth, and seventh ribs. There is healing fracture of the right eighth and ninth rib. There is a healed old rib fracture involving right 10th and 11th ribs. No acute rib fracture identified. Old healed fracture deformity of the left seventh, eighth, ninth and 10th ribs. Thoracic spine: No fracture or subluxation. Discogenic degenerative disease throughout the thoracicspine. Multiple Schmorl's nodes within the mid to lower thoracic spine. No perivertebral soft tissue abnormality. Lumbar spine: No fracture or subluxation. Osteoarthritis of bilateral SI joints. Discogenic degenerative disease throughout the lumbar spine, but most prominently at L5-S1. There is mild anterolisthesis of L4 on L5. IMPRESSION: No traumatic injury to the chest, abdomen, or pelvis. Healing rib fracture involving the right eighth and ninth ribs. Multiple old healed bilateral rib fracture deformities. No thoracic or lumbar spine fracture or subluxation. An actionable message ([place]) has been communicated via the [employer] system on 09/25/2022 9:58 AM, Message ID [id number]. WSN: [id number] Ordering Physician: June Black Dictated By: Marielle Willis MD Dictated Date/Time: 09/25/22 9:59 am Reviewed By: Marielle Willis MD Signed By: Marielle Willis MD Signed Date/Time: 09/25/22 9:59 am Transcribed By: JACKY Transcribed Date/Time: 09/25/22 9:41 am Patient Care team information Care Team Personnel Name: Nicole Sweeney RN Position: S RN Member Role: Primary Care Nurse Name: Eri Velasquez Position: S RN Member Role: Primary Care Nurse Name: Dayanara Porter RN Position: S RN Member Role: Primary Care Nurse Name: Rola Whittaker RN Position: [facility] RN Member Role: Primary Care Nurse Name: Samuel Cruz MD Position: [facility] Primary Care Physician Member Role: PCP Address: Address: [address] [place] [address], [address] [place], [place] [address] Name: *[facility], Trauma Attending Position: [facility] ED Attendings Patient Name: *[facility], Trauma Resident Position: [facility] ED Medicine MD Name: Shwetha Feldman RN Position: [facility] ED RN W/OE and Tasks Member Role: Patient Care Provider Name: Danette Merino Position: [facility] ED TA [facility] Member Role: Patient Care Provider Name: Angelica Joya Position: [facility] ED RN W/OE and Tasks Member Role: Patient Care Provider Care Team Related Persons Name: COLE DIXON Address: home [address] [place] [address] Continuity of Care Document Created on: September 29, 2022 HALLIE DIXON : 1960 Sex: Male Author Name Unknown Organization [facility] Address [address] [place] [id number]- 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 Name Role Phone Samuel Cruz MD Primary Care Physician Encounter [facility] Date(s): 09/25/22 - 09/29/[address] [address] Encounter Diagnosis Cervical spine fracture(Final) - 09/25/22 Discharge Disposition: A-Transfer VNA/Home Health Attending Physician: Robin ARMANDO MD, Adin T Admitting Physician: Robin ARMANDO MD, Adin T Referring Physician: Not on Staff, Referring MD Allergies, Adverse Reactions, Alerts Substance Reaction Severity Status Cats Active Pollen Active Immunizations Given and Recorded Vaccine Date Status Refusal Reason SARS-CoV-2 (COVID-19) Ad26 vaccine 1 12/22/20 Give n tetanus/diphtheria/pertussis, acel(Tdap) 10/20/20 Given 1? Unknown: Resend to [facility]. Medications acetaminophen 325 mg oral tablet 650 mg, By Mouth, Every 4 hours, for 14 days, # 168 tablet, Refills 0, Tot. Refills 0, Acute 10/13/22 13:10:00 EDT, 09/29/22 13:10:00 EDT, Route to Pharmacy Electronically, [facility], Partial fill upon patient request if the prescriptio... Start Date: 09/29/22 Stop Date: 10/13/22 Status: Ordered Acetaminophen Tablet 650 mg, Tablet, By Mouth, 09/29/22 9:00:00 EDT Start Date: 09/29/22 Stop Date: 09/29/22 Status: Completed aspirin 81 mg oral capsule = 81 mg, By Mouth, Daily, # 30 capsule, 0 Refills, Maintenance, 09/29/22 13:10:00 EDT, Capsule, [facility], Partial fill upon patient request if the prescription is for a schedule II opioid drug., 162, cm, 09/29/22 11:15:00 EDT, Height,... Start Date: 09/29/22 Stop Date: 10/29/22 Status: Ordered cetirizine 1 mg/mL oral syrup 5 mL = 5 mg, By Mouth, Daily, # 50 mL, 0 Refills, Maintenance, 09/29/22 13:10:00 EDT, Syrup, [facility], Partial fill upon patient request if the prescription is for a schedule II opioid drug., 162, cm, 09/29/22 11:15:00 EDT, Height, 65,... Start Date: 09/29/22 Stop Date: 10/09/22 Status: Ordered docusate sodium 100 mg oral capsule 100 mg, 1, capsule, By Mouth, 2 times a day, # 28 capsule, Refills 0, Tot. Refills 0, Maintenance, 09/29/22 13:10:00 EDT, Route to Pharmacy Electronically, [facility], Partial fill uponpatient request if the prescription is for a schedu... Start Date: 09/29/22 Stop Date: 10/13/22 Status: Ordered folic acid 1 mg oral tablet 1 mg, 1, tablet, By Mouth, Daily, # 14 tablet, Refills 0, Tot. Refills 0, Maintenance, 09/29/22 13:10:00 EDT, Route to Pharmacy Electronically, [facility], Partial fill upon patient request if the prescription is for a schedule II opioid... Start Date: 09/29/22 Stop Date: 10/13/22 Status: Ordered multivitamin Multiple Vitamins oral tablet 1 tablet, By Mouth, Daily, # 30 tablet, 0 Refills, Maintenance, 09/29/22 13:10:00 EDT, Tablet, [facility], Partial fill upon patient request if the prescription is for a schedule II opioid drug., 1 tablet By Mouth Daily,x30 days, 162, cm... Start Date: 09/29/22 Stop Date: 10/29/22 Status: Ordered oxyCODONE 5 mg oral tablet 5 mg, 1, tablet, By Mouth, Every 6 hours, PRN, for 5 days, # 20 tablet, Refills 0, Tot. Refills 0, Acute 10/04/22 13:10:00 EDT, Pain , Severe, 09/29/22 13:10:00 EDT, Route to Pharmacy Electronically,[facility], Partial fill upon patient... Start Date: 09/29/22 Stop Date: 10/04/22 Status: Ordered senna 187 mg oral tablet 1 tablet = 8.6 mg, By Mouth, Daily, for 14 days, # 14 tablet, 0 Refills, Acute 10/13/22 13:10:00 EDT, 09/29/22 13:10:00 EDT, Tablet, [facility], Partial fill upon patient request if theprescription is for a schedule II opioid drug., 162... Start Date: 09/29/22 Stop Date: 10/13/22 Status: Ordered thiamine 100 mg oral tablet 100 mg, 1, tablet, By Mouth, 2 times a day, for 14 days, # 28 tablet, Refills 0, Tot. Refills 0, Acute 10/13/22 13:10:00 EDT, 09/29/22 13:10:00 EDT, Route to Pharmacy Electronically, [facility], Partial fill upon patient request if the p... Start Date: 09/29/22 Stop Date: 10/13/22 Status: Ordered tiZANidine 4 mg oral tablet 4 mg, 1, tablet, By Mouth, Every 8 hours, # 21 tablet, Refills 0, Tot. Refills 0, Maintenance, 09/29/22 13:10:00 EDT, Route to Pharmacy Electronically, [facility], Partial fill upon patient request if the prescription is for a schedule I... Start Date: 09/29/22 Stop Date: 10/06/22 Status: Ordered Problem List Condition Confirmation Course Effective Dates Status H ealth Status Informant Intraparenchymal hemorrhage of brain Confirmed Active Results Radiology Reports (Most Recent Ten) * Exam Date Time Procedure Performing Provider Status 09/29/22 4:10 AM MRI Brain W+W/O Contrast Rodney Diaz id; Auth (Verified) Notes: (MRI Brain W+W/O Contrast) Reason For Exam: Tumor Primary RESULT: MRI Brain W+W/O Contrast MRI Brain W+W/O Contrast INDICATION / CLINICAL QUESTION: Reason: Tumor Primary; Clinical Question(s): Tumor Primary; SpecialInstructions: Stealth protocol; Order Comment: Please see Reference Text for complete list of contraindications Tumor Primary Per EMR: Status post cervical spine fracture and fixation. Signal abnormality in the inferior left temporal lobe noted on MRI cervical spine. TECHNIQUE: MRI of the brain was performed with and without contrast utilizing sagittal and axial T1, axial T2, axial FLAIR, axial SWAN, 3-D T2 CUBE, and axial DWI sequences, and post-contrast 3D T1 RUBIO with multiplanar reformats. 13 mL of Clariscan was administered intravenously. COMPARISON: MRI cervical spine, 09/26/2022. CT head, 09/25/2022. FINDINGS: BRAIN and EXTRA-AXIAL SPACES: In the area of concern in the left inferior lateral temporal lobe the MRI cervical spine, there is a focal area of encephalomalacia in the left temporal lobe with trace associated hemosiderin staining and cortical disruption. Multiple additional areas of encephalomalacia with associated susceptibility artifact/hemosiderin staining are present in the brain bilaterally, greatest in the superior medial right frontal lobe and left frontal operculum corresponding to sites of hemorrhage seen on priorCT in 07/13/2013. Additional punctate foci of susceptibility artifact compatible with microhemorrhageare present in the superior medial left frontal lobe, right posterior lateral temporal lobe, and likely the left posterior lateral temporal lobe. Evaluation is mildly degraded by motion. No acute space-occupying intracranial hemorrhage is seen. There is no mass effect, midline shift, or effacement of the basal cisterns. On diffusion weighted imaging, there are no regions of restricted diffusion to indicate an acute or subacute infarct. Moderate patchy T2 prolongation is seen in the periventricular, deep, and subcortical white matter, as well as the mid agatha. The midline structures are unremarkable. Ventricles, cisterns, and sulci are moderately prominent, consistent with volume loss, without hydrocephalus. No abnormal intracranial extra-axial fluid collections are seen. Meningeal surfaces are normal. No abnormal intracranial enhancement is seen. There is loss of the left vertebral artery flow-void in the visualized V3 and proximal V4 segment, corresponding to occlusion more fully evaluated on CTA. EXTRACRANIAL SOFT TISSUES: Medialization of the left lamina papyracea is compatible with chronic prior orbital blowout fracture. Orbits are otherwise unremarkable. Minimal scattered mucosal thickening is seen in the paranasal sinuses without fluid levels. Mastoids are unremarkable. There is partial visualization of paraspinal and prevertebral edema, more fully assessed on prior MRI cervical spine. BONES: Marrow signal is preserved in the calvarium and skull base. Effusion at the atlantooccipitaljunction is partially visualized, left greater than right. There is partial visualization of anterior cervical fusion hardware at C4-C5, inferior aspect of hardware below the [id number], with evaluation distorted by susceptibility artifact and incomplete visualization . Known cervical spinal fractures were better evaluated on prior dedicated cervical spine imaging. Known epidural hematoma in the cervical spine is partially visualized. IMPRESSION: 1. The area of signal abnormality in the left inferior temporal lobe seen on MRI cervical spine corresponds to a small area of encephalomalacia and hemosiderin staining, consistent with chronic priorinjury. No mass at this site or elsewhere in the brain. 2. Multiple additional areas of encephalomalacia and hemosiderin staining consistent with chronic sequelae of prior intracranial hemorrhage. No acute intracranial hematoma. 3. Partial visualization of known epidural hematoma in the cervical spine, status post cervical fusion, with paraspinal and prevertebral edema. Cervical fractures or better evaluated on prior dedicated cervical spine imaging. 4. 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 WSN: [id number] Ordering Physician: Heather Smiley Dictated By: Anjelica Mccain MD Dictated Date/Time: 09/29/22 10:21 a Reviewed By: Anjelica Mccain MD Signed By: Anjelica Mccain MD Signed Date/Time: 09/29/22 10:21 am Transcribed By: JACKY Transcribed Date/Time: 09/29/22 9:58 am * Exam Date Time Procedure Performing Provider Status 09/27/22 10:55 AM C-Arm > 1 Hour Jayde Hoskins; Au th (Verified) Notes: (C-Arm > 1 Hour) Reason For Exam: cervical spine fracture RESULT: C-Arm > 1 Hour Cervical Spine 3 Views or Less, C-Arm > 1 Hour Reason: cervical fracture; Special Instructions: [id number] 00:52.8F.T. [id number] COMPARISON: None. FINDINGS/IMPRESSION: Multiple intraoperative fluoroscopic spot images of the cervical spine during C4-C5 anterior fusion Technologist time: 1 5 minutes Fluoroscopy time: 53 seconds WSN: [id number] Ordering Physician: Shanon Osman Dictated By: Juan Keene MD Dictated Date/Time: 09/27/22 11:10 a Reviewed By: Juan Keene MD Signed By: Juan Keene MD Signed Date/Time: 09/27/22 11:10 am Transcribed By: JACKY Transcribed Date/Time: 09/27/22 11:07 am * Exam Date Time Procedure Performing Provider Status 09/27/22 10:55 AM Cervical Spine 3 Views or Less Jayde Lazo; Auth (Verified) Notes: (Cervical Spine 3 Views or Less) Reason For Exam: cervical fracture RESULT: Cervical Spine 3 Views or Less Cervical Spine 3 Views or Less, C-Arm > 1 Hour Reason: cervical fracture; Special Instructions: [id number] 00:52.8F.T. [id number] COMPARISON: None. FINDINGS/IMPRESSION: Multiple intraoperative fluoroscopic spot images of the cervical spine during C4-C5 anterior fusion Technologist time: 1 5 minutes Fluoroscopy time: 53 seconds WSN: [id number] Ordering Physician: Shanon Osman Dictated By: Juan Keene MD Dictated Date/Time: 09/27/22 11:10 a Reviewed By: Juan Keene MD Signed By: Juan Keene MD Signed Date/Time: 09/27/22 11:10 am Transcribed By: JACKY Transcribed Date/Time: 09/27/22 11:07 am * Exam Date Time Procedure Performing Provider Status 09/26/22 3:40 AM MRI Cervical Spine W/O Contrast Anatoliy Myers; Otis (Verified) Notes: (MRI Cervical Spine W/O Contrast) Reason For Exam: Pain/Trauma RESULT: MRI Cervical Spine W/O Contrast MRI Cervical Spine W/O Contrast Reason: Pain Trauma; Clinical Question(s): Fracture Dislocation; Order Comment: Please see Reference Text for complete list of contraindications Fracture/Dislocation TECHNIQUE: MRI of the cervical spine was performed without intravenous contrast utilizing sagittal T1, sagittal T2, sagittal STIR, axial gradient echo, and axial T2-weighted sequences. COMPARISON: CT cervical spine of 09/25/2022 FINDINGS: ALIGNMENT, VERTEBRAE, MARROW, AND DISCS: There is 4 mm anterolisthesis of L4 on L5. Better appreciated on recent CT scan, there is a fracture of the posterior inferior C4 vertebra extending into the right pedicle. An additional fracture of the left lamina extending into the inferior articulating facet is also present. Please refer to CT cervical spine for additional details. There is widening of t he C4-C5 intervertebral disc space with increased signal within the disc most likely a combination of hematoma and edema. There is also abnormal signal in the anterior and posterior ligaments at C4-C5 indicating tears. There are is partial fusion of the left-sided C3-C4 facet joint. There is cervical spine alignment is otherwise maintained. The vertebral body heights are otherwise preserved. There is T1 and T2 hyperintense signal in the C5, C6, C7 compatible with Modic type II endplate changes.The discs are desiccated at the other levels. POSTERIOR FOSSA AND CORD: Incompletely visualized in the left middle cranial fossa, there is T2 hyperintensity in the temporal white matter with relative preservation of the cortex. The visualized brain is otherwise unremarkable. Within the confines of motion, there is no definite abnormal signal within the cervical cord. In addition, the level of C4-C5, there is subtle high signal within the anterior epidural soft tissues measuring approximately 3 mm at its maximum thickness most likely representing a small epidural hematoma. Abnormal signal within the anterior epidural space is also present extending from C1-C2 tothe level of C4- C5. There is asymmetric T2/STIR hyperintense signal in the posterior epidural soft tissues from C3-C4 extending to at least T1-T2, with its maximum thickness at the level of C4-C5 measuring approximately 4 mm most likely representing edema/hematoma. There may be ligamentum flavum disruption on the right at C2-C3 and C3-C4, suboptimally evaluated due to motion. There is also C4-C5 ligamentum flavum injury. The craniocervical junction is patent. Due to the epidural edema/hematoma, there is moderate narrowing of the thecal sac at C2-C3, C3-C4, C5-C6, and moderate to severe narrowing of the thecal sac at C4-C5. PARASPINAL TISSUES: There is T2 hyperintensity in the prevertebral soft tissues measuring up to 7 mm in thickness extending from C2 through T1. There is also abnormal T2/STIR signal in the paraspinalmusculature from the occipital region extending inferiorly to the level of C7 most likely representing extensive muscle consultation. There is abnormal signal within the C3-C4 and C4-C5 interspinous soft tissues most compatible with ligamentous injury. There is also high signal immediately posterior frontal and C1-C2 through at least C5 abutting the spinous processes indicating supraspinous ligament injury. In addition, there is abnormal T2 signal anterior to the C1-C2 junction extending into the C1-C2 lateral mass junction probably an effusion. There is loss of signal of the left vertebral artery flow void indicating occlusion/injury. There is mucosal thickening of the right maxillary sinus. DETAILED FINDINGS BY LEVEL: C2-C3: There is posterior endplate spurring and a minimal disc bulge which in conjunction with facet joint arthropathy and concentric epidural thickening results in moderate canal stenosis without abnormal signal within the cord. There are uncovertebral spurs and facet degenerative stroke but the resulting in severe left and mild to moderate right foraminal stenosis. C3-C4: There is posterior endplate spurring without significant disc bulging. There is moderate canal narrowing due to concentric epidural thickening. There are uncovertebral and facet joint spurs resulting in moderate left and no significant right foraminal stenosis. C4-C5: There are posterior endplate spurs and a fracture fragment better appreciated on concurrent CT scan. In conjunction with concentric epidural hematoma results in moderate to severe canal stenosis without abnormal signal within the cord. There are uncovertebral and facet joint spurs resulting in severe bilateral foraminal stenosis. C5-C6: There are posterior endplate spurs and a mild broad-based disc protrusion most pronounced tothe left of the midline resulting in moderate canal stenosis in conjunction with concentric epidural thickening. Uncovertebral and facet joint spurs are noted resulting in severe bilateral foraminal stenosis. C6-C7: There are posterior endplate spurs without significant disc bulging. There is mild concentric epidural thickening which represents edema/hematoma. There is mild canal stenosis. There are uncovertebral and facet joint spurs resulting in moderate bilateral foraminal stenosis. C7-T1: No significant canal stenosis or neural foraminal narrowing. There is mild facet joint arthropathy. The disc is relatively preserved. IMPRESSION: C4 fractures, better appreciated on concurrent CT scan with associated widening of the C4-C5 disc with abnormal signal suggesting disc injury/hematoma. ALL and PLL injury at C4-C5. Concentric epidural thickening in the cervical spine most pronounced at C4-C5 but seen anteriorly from C1-C2 through at least C4-C5 and posteriorly from C2-C3 to at least T1-T2 resulting in overall moderate canal stenosis throughout the cervical spine with focal moderate to severe compression of the thecal sac at C4-C5 without abnormal signal within the cord. Extensive abnormal signal within the posterior paraspinal soft tissues from the craniovertebral junction to the level of T1 most likely representing muscle contusion/muscle strain. Abnormal signal within the interspinous soft tissues at C3-C4 and C4-C5 most compatible with interspinous ligamentous injury. Abnormal signal of the supraspinous ligament from C1-C2 to at least C5-[id number] additional supraspinous ligament tear/injury. Likely ligamentum flavum tear at C2-C3, C3- C4, and C4-C5. Extensive prevertebral edema/hematoma from C2 through at least C6. Left vertebral artery injury/occlusion. Incompletely visualized abnormal signal in the inferior left temporal white matter. A dedicated MRIof the brain is advised to better characterize the brain parenchyma. An orange message was sent to communicate this finding. C1-C2 joint effusions probably degenerative in nature rather than traumatic. A similar preliminary report was provided by [facility] at 6:42 AM on 09/27/2022. The temporal lobe abnormality was not mentioned in the preliminary report. An orange message was sent. An actionable message ([place]) has been communicated via the [employer] system on 09/27/2022 8:34 AM, Message ID [id number]. WSN: [id number] Ordering Physician: Tanya Duran Dictated By: Meera Torres MD Dictated Date/Time: 09/27/22 8:34 am Reviewed By: Meera Torres MD Signed By: Meera Torres MD Signed Date/Time: 09/27/22 8:34 am Transcribed By: JACKY Transcribed Date/Time: 09/27/22 7:29 am * Exam Date Time Procedure Performing Provider Status 09/25/22 9:[address] Lumbar Spine W/ Contrast Ste , Micha -Edie; Auth (Verified) Notes: (CT Lumbar Spine W/ Contrast) Reason For Exam: Spine fracture, lumbar, traumatic;Other: RESULT: CT Lumbar Spine W/ Contrast CT Chest W/ Contrast, CT Thoracic Spine W/ Contrast, CT Abd/Pelvis W/ IV Contrast Only, CT Lumbar Spine W/ Contrast INDICATION: Reason: Other:; Chest trauma, blunt; Clinical Question(s): Other:; Aortic hilar injury TECHNIQUE: Helical CT scan of the chest, abdomen, and pelvis with IV contrast, formatted in 3 planes. The original dataset was reconstructed with a small field of view around the thoracic and lumbar spine utilizing soft tissue and bone algorithm reconstructions in 3 planes. 100 cc of Omnipaque 300 was administered intravenously. This study was performed without oral contrast. Weight-based protocol was performed using automatic exposure control. CTDIvol Body: 7.92 mGy, DLP Body: 796 mGy*cm. COMPARISON: None. FINDINGS: Accounts Receivable Processor view findings, lines and tubes: None. Trachea and airways: Patent without evidence of tracheal or endobronchial lesion. Lungs and pleura: Clear lungs. No effusion or pneumothorax. Mediastinum and idalia: No mass or hematoma. No mediastinal or hilar lymphadenopathy. No esophageal abnormality. There is a small hiatal hernia. Heart: Heart is normal in size. No pericardial effusion. Aorta: No aortic aneurysm. Pulmonary arteries: Normal caliber. No evidence of pulmonary embolism on this study performed without angiographic technique. Chest wall soft tissues: No acute abnormality. Diaphragm: Intact. Liver: Liver is mildly fatty infiltrated. No suspicious lesion. Gallbladder: No CT evidence of gallbladder pathology. Bile ducts: No biliary ductal dilation. Spleen: Normal in size. Pancreas: No suspicious lesion or ductal dilatation. Adrenal glands: No nodule. Kidneys and ureters: No hydronephrosis, stone, or suspicious lesion. Bladder: No wall thickening or surrounding stranding. Reproductive organs: Unremarkable. Stomach, small bowel, and large bowel: Normal caliber stomach and bowel loops. No surrounding inflammatory changes. Moderate amount of stool throughout colon. Appendix: No evidence of acute appendicitis. Peritoneum and retroperitoneum: No ascites or pneumoperitoneum. No omental or mesenteric lesions. Lymph nodes: No enlarged lymph nodes. Blood vessels: No vascular calcifications or aneurysm. No evidence of venous thrombosis. Abdominal and pelvic wall soft tissues: No acute abnormality. Bones: Old healed fracture deformity of the right fifth, sixth, and seventh ribs. There is healing fracture of the right eighth and ninth rib. There is a healed old rib fracture involving right 10th and 11th ribs. No acute rib fracture identified. Old healed fracture deformity of the left seventh, eighth, ninth and 10th ribs. Thoracic spine: No fracture or subluxation. Discogenic degenerative disease throughout the thoracicspine. Multiple Schmorl's nodes within the mid to lower thoracic spine. No perivertebral soft tissue abnormality. Lumbar spine: No fracture or subluxation. Osteoarthritis of bilateral SI joints. Discogenic degenerative disease throughout the lumbar spine, but most prominently at L5-S1. There is mild anterolisthesis of L4 on L5. IMPRESSION: No traumatic injury to the chest, abdomen, or pelvis. Healing rib fracture involving the right eighth and ninth ribs. Multiple old healed bilateral rib fracture deformities. No thoracic or lumbar spine fracture or subluxation. An actionable message ([place]) has been communicated via the [employer] system on 09/25/2022 9:58 AM, Message ID [id number]. WSN: [id number] Ordering Physician: June Black Dictated By: Marielle Willis MD Dictated Date/Time: 09/25/22 9:59 am Reviewed By: Marielle Willis MD Signed By: Marielle Willis MD Signed Date/Time: 09/25/22 9:59 am Transcribed By: JACKY Transcribed Date/Time: 09/25/22 9:41 am * Exam Date Time Procedure Performing Provider Status 09/25/22 9:[address] Abd/Pelvis W/ IV Contrast Only Cuong r Heydi; Auth (Verified) Notes: (CT Abd/Pelvis W/ IV Contrast Only) Reason For Exam: Abd trauma, blunt;Other: RESULT: CT Abd/Pelvis W/ IV Contrast Only CT Chest W/ Contrast, CT Thoracic Spine W/ Contrast, CT Abd/Pelvis W/ IV Contrast Only, CT Lumbar Spine W/ Contrast INDICATION: Reason: Other:; Chest trauma, blunt; Clinical Question(s): Other:; Aortic hilar injury TECHNIQUE: Helical CT scan of the chest, abdomen, and pelvis with IV contrast, formatted in 3 planes. The original dataset was reconstructed with a small field of view around the thoracic and lumbar spine utilizing soft tissue and bone algorithm reconstructions in 3 planes. 100 cc of Omnipaque 300 was administered intravenously. This study was performed without oral contrast. Weight-based protocol was performed using automatic exposure control. CTDIvol Body: 7.92 mGy, DLP Body: 796 mGy*cm. COMPARISON: None. FINDINGS: Accounts Receivable Processor view findings, lines and tubes: None. Trachea and airways: Patent without evidence of tracheal or endobronchial lesion. Lungs and pleura: Clear lungs. No effusion or pneumothorax. Mediastinum and idalia: No mass or hematoma. No mediastinal or hilar lymphadenopathy. No esophageal abnormality. There is a small hiatal hernia. Heart: Heart is normal in size. No pericardial effusion. Aorta: No aortic aneurysm. Pulmonary arteries: Normal caliber. No evidence of pulmonary embolism on this study performed without angiographic technique. Chest wall soft tissues: No acute abnormality. Diaphragm: Intact. Liver: Liver is mildly fatty infiltrated. No suspicious lesion. Gallbladder: No CT evidence of gallbladder pathology. Bile ducts: No biliary ductal dilation. Spleen: Normal in size. Pancreas: No suspicious lesion or ductal dilatation. Adrenal glands: No nodule. Kidneys and ureters: No hydronephrosis, stone, or suspicious lesion. Bladder: No wall thickening or surrounding stranding. Reproductive organs: Unremarkable. Stomach, small bowel, and large bowel: Normal caliber stomach and bowel loops. No surrounding inflammatory changes. Moderate amount of stool throughout colon. Appendix: No evidence of acute appendicitis. Peritoneum and retroperitoneum: No ascites or pneumoperitoneum. No omental or mesenteric lesions. Lymph nodes: No enlarged lymph nodes. Blood vessels: No vascular calcifications or aneurysm. No evidence of venous thrombosis. Abdominal and pelvic wall soft tissues: No acute abnormality. Bones: Old healed fracture deformity of the right fifth, sixth, and seventh ribs. There is healing fracture of the right eighth and ninth rib. There is a healed old rib fracture involving right 10th and 11th ribs. No acute rib fracture identified. Old healed fracture deformity of the left seventh, eighth, ninth and 10th ribs. Thoracic spine: No fracture or subluxation. Discogenic degenerative disease throughout the thoracicspine. Multiple Schmorl's nodes within the mid to lower thoracic spine. No perivertebral soft tissue abnormality. Lumbar spine: No fracture or subluxation. Osteoarthritis of bilateral SI joints. Discogenic degenerative disease throughout the lumbar spine, but most prominently at L5-S1. There is mild anterolisthesis of L4 on L5. IMPRESSION: No traumatic injury to the chest, abdomen, or pelvis. Healing rib fracture involving the right eighth and ninth ribs. Multiple old healed bilateral rib fracture deformities. No thoracic or lumbar spine fracture or subluxation. An actionable message ([place]) has been communicated via the [employer] system on 09/25/2022 9:58 AM, Message ID [id number]. WSN: [id number] Ordering Physician: June Black Dictated By: Marielle Willis MD Dictated Date/Time: 09/25/22 9:59 am Reviewed By: Marielle Willis MD Signed By: Marielle Willis MD Signed Date/Time: 09/25/22 9:59 am Transcribed By: JACKY Transcribed Date/Time: 09/25/22 9:41 am * Exam Date Time Procedure Performing Provider Status 09/25/22 9:[address] Thoracic Spine W/ Contrast Heydi Lester; Otis (Verified) Notes: (CT Thoracic Spine W/ Contrast) Reason For Exam: Spine fracture, thoracic, traumatic;Other: RESULT: CT Thoracic Spine W/ Contrast CT Chest W/ Contrast, CT Thoracic Spine W/ Contrast, CT Abd/Pelvis W/ IV Contrast Only, CT Lumbar Spine W/ Contrast INDICATION: Reason: Other:; Chest trauma, blunt; Clinical Question(s): Other:; Aortic hilar injury TECHNIQUE: Helical CT scan of the chest, abdomen, and pelvis with IV contrast, formatted in 3 planes. The original dataset was reconstructed with a small field of view around the thoracic and lumbar spine utilizing soft tissue and bone algorithm reconstructions in 3 planes. 100 cc of Omnipaque 300 was administered intravenously. This study was performed without oral contrast. Weight-based protocol was performed using automatic exposure control. CTDIvol Body: 7.92 mGy, DLP Body: 796 mGy*cm. COMPARISON: None. FINDINGS: Accounts Receivable Processor view findings, lines and tubes: None. Trachea and airways: Patent without evidence of tracheal or endobronchial lesion. Lungs and pleura: Clear lungs. No effusion or pneumothorax. Mediastinum and idalia: No mass or hematoma. No mediastinal or hilar lymphadenopathy. No esophageal abnormality. There is a small hiatal hernia. Heart: Heart is normal in size. No pericardial effusion. Aorta: No aortic aneurysm. Pulmonary arteries: Normal caliber. No evidence of pulmonary embolism on this study performed without angiographic technique. Chest wall soft tissues: No acute abnormality. Diaphragm: Intact. Liver: Liver is mildly fatty infiltrated. No suspicious lesion. Gallbladder: No CT evidence of gallbladder pathology. Bile ducts: No biliary ductal dilation. Spleen: Normal in size. Pancreas: No suspicious lesion or ductal dilatation. Adrenal glands: No nodule. Kidneys and ureters: No hydronephrosis, stone, or suspicious lesion. Bladder: No wall thickening or surrounding stranding. Reproductive organs: Unremarkable. Stomach, small bowel, and large bowel: Normal caliber stomach and bowel loops. No surrounding inflammatory changes. Moderate amount of stool throughout colon. Appendix: No evidence of acute appendicitis. Peritoneum and retroperitoneum: No ascites or pneumoperitoneum. No omental or mesenteric lesions. Lymph nodes: No enlarged lymph nodes. Blood vessels: No vascular calcifications or aneurysm. No evidence of venous thrombosis. Abdominal and pelvic wall soft tissues: No acute abnormality. Bones: Old healed fracture deformity of the right fifth, sixth, and seventh ribs. There is healing fracture of the right eighth and ninth rib. There is a healed old rib fracture involving right 10th and 11th ribs. No acute rib fracture identified. Old healed fracture deformity of the left seventh, eighth, ninth and 10th ribs. Thoracic spine: No fracture or subluxation. Discogenic degenerative disease throughout the thoracicspine. Multiple Schmorl's nodes within the mid to lower thoracic spine. No perivertebral soft tissue abnormality. Lumbar spine: No fracture or subluxation. Osteoarthritis of bilateral SI joints. Discogenic degenerative disease throughout the lumbar spine, but most prominently at L5-S1. There is mild anterolisthesis of L4 on L5. IMPRESSION: No traumatic injury to the chest, abdomen, or pelvis. Healing rib fracture involving the right eighth and ninth ribs. Multiple old healed bilateral rib fracture deformities. No thoracic or lumbar spine fracture or subluxation. An actionable message ([place]) has been communicated via the [employer] system on 09/25/2022 9:58 AM, Message ID [id number]. WSN: [id number] Ordering Physician: June Black Dictated By: Marielle Willis MD Dictated Date/Time: 09/25/22 9:59 am Reviewed By: Marielle Willis MD Signed By: Marielle Willis MD Signed Date/Time: 09/25/22 9:59 am Transcribed By: JACKY Transcribed Date/Time: 09/25/22 9:41 am * Exam Date Time Procedure Performing Provider Status 09/25/22 9:[address] Chest W/ Contrast Heydi Lester ; Auth (Verified) Notes: (CT Chest W/ Contrast) Reason For Exam: Chest trauma, blunt;Other: RESULT: CT Chest W/ Contrast CT Chest W/ Contrast, CT Thoracic Spine W/ Contrast, CT Abd/Pelvis W/ IV Contrast Only, CT Lumbar Spine W/ Contrast INDICATION: Reason: Other:; Chest trauma, blunt; Clinical Question(s): Other:; Aortic hilar injury TECHNIQUE: Helical CT scan of the chest, abdomen, and pelvis with IV contrast, formatted in 3 planes. The original dataset was reconstructed with a small field of view around the thoracic and lumbar spine utilizing soft tissue and bone algorithm reconstructions in 3 planes. 100 cc of Omnipaque 300 was administered intravenously. This study was performed without oral contrast. Weight-based protocol was performed using automatic exposure control. CTDIvol Body: 7.92 mGy, DLP Body: 796 mGy*cm. COMPARISON: None. FINDINGS: Accounts Receivable Processor view findings, lines and tubes: None. Trachea and airways: Patent without evidence of tracheal or endobronchial lesion. Lungs and pleura: Clear lungs. No effusion or pneumothorax. Mediastinum and idalia: No mass or hematoma. No mediastinal or hilar lymphadenopathy. No esophageal abnormality. There is a small hiatal hernia. Heart: Heart is normal in size. No pericardial effusion. Aorta: No aortic aneurysm. Pulmonary arteries: Normal caliber. No evidence of pulmonary embolism on this study performed without angiographic technique. Chest wall soft tissues: No acute abnormality. Diaphragm: Intact. Liver: Liver is mildly fatty infiltrated. No suspicious lesion. Gallbladder: No CT evidence of gallbladder pathology. Bile ducts: No biliary ductal dilation. Spleen: Normal in size. Pancreas: No suspicious lesion or ductal dilatation. Adrenal glands: No nodule. Kidneys and ureters: No hydronephrosis, stone, or suspicious lesion. Bladder: No wall thickening or surrounding stranding. Reproductive organs: Unremarkable. Stomach, small bowel, and large bowel: Normal caliber stomach and bowel loops. No surrounding inflammatory changes. Moderate amount of stool throughout colon. Appendix: No evidence of acute appendicitis. Peritoneum and retroperitoneum: No ascites or pneumoperitoneum. No omental or mesenteric lesions. Lymph nodes: No enlarged lymph nodes. Blood vessels: No vascular calcifications or aneurysm. No evidence of venous thrombosis. Abdominal and pelvic wall soft tissues: No acute abnormality. Bones: Old healed fracture deformity of the right fifth, sixth, and seventh ribs. There is healing fracture of the right eighth and ninth rib. There is a healed old rib fracture involving right 10th and 11th ribs. No acute rib fracture identified. Old healed fracture deformity of the left seventh, eighth, ninth and 10th ribs. Thoracic spine: No fracture or subluxation. Discogenic degenerative disease throughout the thoracicspine. Multiple Schmorl's nodes within the mid to lower thoracic spine. No perivertebral soft tissue abnormality. Lumbar spine: No fracture or subluxation. Osteoarthritis of bilateral SI joints. Discogenic degenerative disease throughout the lumbar spine, but most prominently at L5-S1. There is mild anterolisthesis of L4 on L5. IMPRESSION: No traumatic injury to the chest, abdomen, or pelvis. Healing rib fracture involving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 and inferior articular process, with perched left C4-5 facet and associated grade 1 anterolisthesis; as well as fracture of the right posterior C4 vertebral body, right transverse foramen, and right C4 pedicle. Consider CTA neck to assess for vascular injury. * C5: Fracture of an osteophyte arising from the anterior superior corner of C5. 2. Questionable intermediate signal in the peripheral aspect of the spinal canal from C2 to C4; epidural hematoma cannot be excluded. Consider more definitive evaluation with MRI cervical spine. 3. Multilevel degenerative changes as above. Major findings are in agreement with the preliminary report by Cailin. WSN: [id number] Ordering Physician: Bang David Signature Line Dictated By: Anjelica Mccain MD Dictated Date/Time: 09/25/22 8:37 am Reviewed By: Anjelica Mccain MD Signed By: Anjelica Mccain MD Signed Date/Time: 09/25/22 8:37 am Transcribed By: JACKY Transcribed Date/Time: 09/25/22 8:08 am Discharge Plan Discharge Disposition Discharge: home with VNA. Home Health Face to Face I certify that this patient is under my care and that I or an allowed non- physician practitioner working with me, had a [id number] encounter with the
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
--- OUTSIDE RECORDS SUMMARY | 2023-03-29 02:37 | XMS_ITS | Continuity of Care Document ---
Author Name Unknown Organization [facility] Address [address] [place] [address]- Care Team Providers Care Hand Cutter Name Role Phone Not on Staff, PCP Primary Care Physician Unavail able Encounter [facility] Date(s): 10/24/22 - 11/30/22 [facility] [address] [place] [id number] Attending Physician: Walter An MD Admitting Physician: Walter An MD Referring Physician: Rosi Harper MD Allergies, Adverse Reactions, Alerts Substance Reaction Severity Status Cats Active Pollen Active Immunizations Given and Recorded Vaccine Date Status Refusal Reason SARS-CoV-2 (COVID-19) Ad26 vaccine 1 12/22/20 Give n SARS-CoV-2 (COVID-19) Ad26 vaccine 12/22/20 Record ed tetanus/diphtheria/pertussis, acel(Tdap) 10/20/20 Given 1? Unknown: Resend to [facility]. Medications acetaminophen 325 mg oral tablet 650 mg, 2, tablet, By Mouth, Every 6 hours, Refills 0, Maintenance, 10/23/22 15:49:00 EDT, Partial fill upon patient request if the prescription is for a schedule II opioid drug. Start Date: 10/23/22 Status: Ordered aspirin 81 mg oral capsule = 81 mg, By Mouth, Daily, # 30 capsule, 0 Refills, Maintenance, 09/29/22 13:10:00 EDT, Capsule, [facility], Partial fill [...] 0 Refills, Maintenance, 09/29/22 13:10:00 EDT, Syrup, [facility], Partial fill [...] 09/29/22 13:10:00 EDT, Route to Pharmacy Electronically, [facility], Partial fill uponpatient request if [...] 09/29/22 13:10:00 EDT, Route to Pharmacy Electronically, [facility], Partial fill [...] 0 Refills, Maintenance, 09/29/22 13:10:00 EDT, Tablet, [facility], Partial fill [...] 09/29/22 13:10:00 EDT, Route to Pharmacy Electronically, [facility], Partial fill [...] Care Nurse Name: Tanya Howell RN Position: [facility] RN Member Role: Primary Care Nurse Name: Dayanara Porter RN Position: [facility] RN Member Role: Primary Care Nurse Name: Dl Gibson RN Position: [facility] RN Member Role: Primary Care Nurse Name: Not on Staff, PCP Position: [facility] Physician (General Medicine) Member Role: PCP Name: Sharri Sosa RN Position: [facility] RN Member Role: Primary Care Nurse Name: Cristofer Augustine Position: [facility] RN Member Role: Primary Care Nurse Name: Rola Whittaker RN Position: [facility] RN Member Role: Primary Care Nurse Name: Estelita Sigala RN Position: [facility] RN Member Role: Primary Care Nurse Name: Brianne Gamboa RN Position: [facility] RN Member Role: Primary Care Nurse Care Team Related Persons Name: COLE DIXON Address: [address] [address]
--- OUTSIDE RECORDS SUMMARY | 2023-03-29 02:37 | XMS_ITS | Continuity of Care Document ---
Author Name Unknown Organization [facility] Address [address] [place] [address] Aminah frausto, [address] [place] [address]- Care Team Providers Care Micro Paleontologist Name Role Phone Not on Staff, PCP Primary Care Physician Unavail able Encounter [facility] Date(s): 10/24/22 - 12/22/22 [facility] [address] [place] [address], [address] [place], [place] [address] Attending Physician: Melissa Rodriguez MD Allergies, Adverse Reactions, Alerts Substance Reaction Severity Status Cats Active Pollen Active Immunizations Given and Recorded Vaccine Date Status Refusal Reason SARS-CoV-2 (COVID-19) Ad26 vaccine 1 12/22/20 Give n SARS-CoV-2 (COVID-19) Ad26 vaccine 12/22/20 Record ed tetanus/diphtheria/pertussis, acel(Tdap) 10/20/20 Given 1? Unknown: Resend to [facility]. Medications acetaminophen 325 mg oral tablet 650 mg, 2, tablet, By Mouth, Every 6 hours, Refills 0, Maintenance, 10/23/22 15:49:00 EDT, Partial fill upon patient request if the prescription is for a schedule II opioid drug. Start Date: 10/23/22 Status: Ordered aspirin 81 mg oral capsule = 81 mg, By Mouth, Daily, # 30 capsule, 0 Refills, Maintenance, 09/29/22 13:10:00 EDT, Capsule, [facility], Partial fill upon patient [...] 0 Refills, Maintenance, 09/29/22 13:10:00 EDT, Syrup, [facility], Partial fill upon patient [...] 09/29/22 13:10:00 EDT, Route to Pharmacy Electronically, [facility], Partial fill uponpatient request [...] 09/29/22 13:10:00 EDT, Route to Pharmacy Electronically, [facility], Partial fill upon patient [...] 0 Refills, Maintenance, 09/29/22 13:10:00 EDT, Tablet, [facility], Partial fill upon patient [...] 09/29/22 13:10:00 EDT, Route to Pharmacy Electronically, [facility], Partial fill upon patient [...] Team Personnel Name: Nicole Sweeney RN Position: [facility] RN Member Role: Primary Care Nurse Name: Heather Keyes Position: S RN Member Role: Primary Care Nurse Name: Eri Velasquez Position: [facility] RN Member Role: Primary Care Nurse Name: Kendra Ayala RN Position: [facility] RN Member Role: Primary Care Nurse Name: Tanya Howell RN Position: [facility] RN Member Role: Primary Care Nurse Name: Dayanara Porter RN Position: [facility] RN Member Role: Primary Care Nurse Name: Dl Gibson RN Position: [facility] RN Member Role: Primary Care Nurse Name: Not on Staff, PCP Position: [facility] Physician (General Medicine) Member Role: PCP Name: Sharri Sosa RN Position: [facility] RN Member Role: Primary Care Nurse Name: Cristofer Augustine Position: [facility] RN Member Role: Primary Care Nurse Name: Rola Whittaker RN Position: [facility] RN Member Role: Primary Care Nurse Name: Estelita Sigala RN Position: [facility] RN Member Role: Primary Care Nurse Name: Brianne Gamboa RN Position: [facility] RN Member Role: Primary Care Nurse Care Team Related Persons Name: COLE DIXON Address: [address] [address]
--- OUTSIDE RECORDS SUMMARY | 2023-03-29 02:37 | XMS_ITS | Continuity of Care Document ---
Author Name Unknown Organization [facility] Address [address] [place] [address] Aminah frausto, [address] [place] [address]- Care Team Providers Care Marine Geologist Name Role Phone Not on Staff, PCP Primary Care Physician Unavail able Encounter [facility] Date(s): 02/02/23 - 03/23/[address] [facility] [address] [place] [address] Drive, [address] [place], [place] [address] Attending Physician: Not on Staff, Attending MD Allergies, Adverse Reactions, Alerts Substance Reaction Severity Status Cats Active Pollen Active Immunizations Given and Recorded Vaccine Date Status Refusal Reason SARS-CoV-2 (COVID-19) Ad26 vaccine 1 12/22/20 Give n SARS-CoV-2 (COVID-19) Ad26 vaccine 12/22/20 Record ed tetanus/diphtheria/pertussis, acel(Tdap) 10/20/20 Given 1? Unknown: Resend to [facility]. Problem List Condition Confirmation Course Effective Dates [...] Care Nurse Name: Elizabeth Sutherland RN Position: [facility] RN Supv Member Role: Primary Care Nurse Name: Heather Keyes Position: S RN Member Role: Primary Care Nurse Name: Eri Velasquez Position: S RN Member Role: Primary Care Nurse Name: Kendra Ayala RN Position: S RN Member Role: Primary Care Nurse Name: Dayanara Porter RN Position: [facility] RN Member Role: Primary Care Nurse Name: Dl Gibson RN Position: [facility] RN Member Role: Primary Care Nurse Name: Not on Staff, PCP Position: [facility] Physician (General Medicine) Member Role: PCP Name: Sharri Sosa RN Position: [facility] RN Member Role: Primary Care Nurse Name: Cristofer Augustine Position: [facility] RN Member Role: Primary Care Nurse Name: Rola Whittaker RN Position: [facility] RN Member Role: Primary Care Nurse Name: Sonam Morales RN Position: [facility] RN Member Role: Primary Care Nurse Name: Estelita Sigala RN Position: [facility] RN Member Role: Primary Care Nurse Name: Brianne Gamboa RN Position: [facility] RN Member Role: Primary Care Nurse Care Team Related Persons Name: COLE DIXON Address: [address] [address]
--- OUTSIDE RECORDS SUMMARY | 2023-03-29 02:37 | XMS_ITS | Continuity of Care Document ---
Author Name Unknown Organization [facility] Address [address] [place] [address] Aminah frausto, [address] [place] [address]- Care Team Providers Care Faceter Name Role Phone Not on Staff, PCP Primary Care Physician Unavail able Encounter [facility] Date(s): 10/25/22 - 11/24/22 [facility] [address] [place] [address], [address] [place], [place] [address] Attending Physician: Massimo Ram Admitting Physician: AdmtrMassimo Referring Physician: Admtr, Ar8 Allergies, Adverse Reactions, Alerts Substance Reaction Severity Status Cats Active Pollen Active Immunizations Given and Recorded Vaccine Date Status Refusal Reason SARS-CoV-2 (COVID-19) Ad26 vaccine 1 12/22/20 Give n SARS-CoV-2 (COVID-19) Ad26 vaccine 12/22/20 Record ed tetanus/diphtheria/pertussis, acel(Tdap) 10/20/20 Given 1? Unknown: Resend to [facility]. Medications acetaminophen 325 mg oral tablet 650 mg, 2, tablet, By Mouth, Every 6 hours, Refills 0, Maintenance, 10/23/22 15:49:00 EDT, Partial fill upon patient request if the prescription is for a schedule II opioid drug. Start Date: 10/23/22 Status: Ordered aspirin 81 mg oral capsule = 81 mg, By Mouth, Daily, # 30 capsule, 0 Refills, Maintenance, 09/29/22 13:10:00 EDT, Capsule, [facility], Partial fill upon patient [...] 0 Refills, Maintenance, 09/29/22 13:10:00 EDT, Syrup, [facility], Partial fill upon patient [...] 09/29/22 13:10:00 EDT, Route to Pharmacy Electronically, [facility], Partial fill uponpatient request [...] 09/29/22 13:10:00 EDT, Route to Pharmacy Electronically, [facility], Partial fill upon patient [...] 0 Refills, Maintenance, 09/29/22 13:10:00 EDT, Tablet, [facility], Partial fill upon patient request if [...] 09/29/22 13:10:00 EDT, Route to Pharmacy Electronically, [facility], Partial fill upon patient [...] Team Related Persons Name: COLE DIXON Address: [address] [address]
--- OUTSIDE RECORDS SUMMARY | 2023-03-29 02:37 | XMS_ITS | Continuity of Care Document ---
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[employer] Name Role Phone Not on Staff, PCP Primary Care Physician Unavail able Encounter [facility] Date(s): 01/11/23 - 02/24/23 [facility] [address] [place] [address] Drive, [address] [place], [place] [address] Attending Physician: Shanon Osman MD Referring Physician: Not on Staff, Referring MD Allergies, Adverse Reactions, Alerts Substance Reaction Severity Status Cats Active Pollen Active Immunizations Given and Recorded Vaccine Date Status Refusal Reason SARS-CoV-2 (COVID-19) Ad26 vaccine 1 12/22/20 Give n SARS-CoV-2 (COVID-19) Ad26 vaccine 12/22/20 Record ed tetanus/diphtheria/pertussis, acel(Tdap) 10/20/20 Given 1? Unknown: Resend to [facility]. Problem List Condition Confirmation Course Effective Dates [...] Care Nurse Name: Dayanara Porter RN Position: [facility] RN Member Role: Primary Care Nurse Name: Dl Gibson RN Position: [facility] RN Member Role: Primary Care Nurse Name: Not on Staff, PCP Position: [facility] Physician (General Medicine) Member Role: PCP Name: Sharri Sosa RN Position: [facility] RN Member Role: Primary Care Nurse Name: Cristofer Augustine Position: [facility] RN Member Role: Primary Care Nurse Name: Rola Whittaker RN Position: [facility] RN Member Role: Primary Care Nurse Name: Sonam Morales RN Position: [facility] RN Member Role: Primary Care Nurse Name: Estelita Sigala RN Position: [facility] RN Member Role: Primary Care Nurse Name: Brianne Gamboa RN Position: [facility] RN Member Role: Primary Care Nurse Care Team Related Persons Name: COLE DIXON Address: [address] [address]
--- OUTSIDE RECORDS SUMMARY | 2023-03-29 02:37 | XMS_ITS | Continuity of Care Document ---
Author Name Unknown Organization [facility] Address [address] [place] [address] Aminah frausto, [address] [place] [address]- Care Team Providers Care Hand Tier Name Role Phone Not on Staff, PCP Primary Care Physician Unavail able Encounter [facility] Date(s): 10/31/22 - 11/07/22 [facility] [address] [place] [address] Drive, [address] [place] [address]- Attending Physician: Shanon Osman MD Allergies, Adverse Reactions, Alerts Substance Reaction Severity Status Cats Active Pollen Active Immunizations Given and Recorded Vaccine Date Status Refusal Reason SARS-CoV-2 (COVID-19) Ad26 vaccine 1 12/22/20 Give n SARS-CoV-2 (COVID-19) Ad26 vaccine 12/22/20 Record ed tetanus/diphtheria/pertussis, acel(Tdap) 10/20/20 Given 1? Unknown: Resend to [facility]. Medications acetaminophen 325 mg oral tablet 650 [...] oldest [Reference Range]: 1 Height 163 cm (10/31/22 2:16 PM) Weight 55.1 kg (10/31/22 2:16 PM) Body Mass Index [18.5-24.99 kg/m2] 20.74 kg/m2 (10/31/22 2:16 PM) Social History Social History Type Response [...] Care Nurse Name: Tanya Howell RN Position: S RN Member Role: Primary Care Nurse Name: Dayanara Porter RN Position: S RN Member Role: Primary Care Nurse Name: Dl Gibson RN Position: S RN Member Role: Primary Care Nurse Name: Not on Staff, PCP Position: [facility] Physician (General Medicine) Member Role: PCP Name: Sharri Sosa RN Position: [facility] RN Member Role: Primary Care Nurse Name: Cristofer Augustine Position: S RN Member Role: Primary Care Nurse Name: Rola Whittaker RN Position: S RN Member Role: Primary Care Nurse Name: Estelita Sigala RN Position: [facility] RN Member Role: Primary Care Nurse Name: Brianne Gamboa RN Position: S RN Member Role: Primary Care Nurse Care Team Related Persons Name: COLE DIXON Address: [address] [address]
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
--- OUTSIDE RECORDS SUMMARY | 2023-03-29 02:37 | XMS_ITS | Continuity of Care Document ---
Author Name Unknown Organization [facility] As [facility] Address [address] [place] [address] [address] [place] [address]- Care Team Providers Care Physical Therapy Asst Name Role Phone Samuel Cruz MD Primary Care Physician Encounter [facility] Date(s): 05/24/22 - 06/23/[address] [place] [address]- Attending Physician: Massimo Ram Admitting Physician: AdmtrMassimo Referring Physician: Admtr, Ar8 Allergies, Adverse Reactions, Alerts Substance Reaction Severity Status Cats Active Pollen Active Immunizations Given and Recorded Vaccine Date Status Refusal Reason SARS-CoV-2 (COVID-19) Ad26 vaccine 1 12/22/20 Give n tetanus/diphtheria/pertussis, acel(Tdap) 10/20/20 Given 1? Unknown: Resend to [facility]. Medications gabapentin 100 mg oral capsule 100 mg, 1, capsule, By Mouth, 3 times a day, # 42 capsule, Refills 0, Tot. Refills 0, Maintenance, 05/10/22 9:04:00 EST, Route to Pharmacy Electronically, [facility], Partial fill upon patient [...] Care Team Personnel Name: Eri Velasquez Position: [facility] RN Member Role: Primary Care Nurse Name: Samuel Cruz MD Position: [facility] Primary Care Physician Member Role: PCP Address: Address: [address] [place] [address], [address] [place] [address]- Care Team Related Persons Name: ZACK COLE Address: [address] [address]
--- OUTSIDE RECORDS SUMMARY | 2023-03-29 02:37 | XMS_ITS | Continuity of Care Document ---
Author Name Unknown Organization [facility] Infectious Disease Address [address] [place] [id number]- Care Team Providers Care Lapel Padder Name Role Phone Not on Staff, PCP Primary Care Physician Unavail able [facility]counter [facility] Date[facility]): [facility]/22 - 12/15/22 [facility] Infectious Disease [address] [place] [address] Attending Physician: Massimo Ram Admitting Physician: Massimo Ram Referring Physician: AdmtrMassimo Allergies, Adverse Reactions, Alerts Substance Reaction Severity Status Cats Active Pollen Active Immunizations Given and Recorded Vaccine Date Status Refusal Reason SARS-CoV-2 (COVID-19) Ad26 vaccine 1 12/22/20 Give n SARS-CoV-2 (COVID-19) Ad26 vaccine 12/22/20 Record ed tetanus/diphtheria/pertussis, acel(Tdap) 10/20/20 Given 1? Unknown: Resend to [facility]. Medications acetaminophen 325 mg oral tablet 650 mg, 2, tablet, By Mouth, Every 6 hours, Refills 0, Maintenance, 10/23/22 15:49:00 EDT, Partial fill upon patient request if the prescription is for a schedule II opioid drug. Start Date: 10/23/22 Status: Ordered aspirin 81 mg oral capsule = 81 mg, By Mouth, Daily, # 30 capsule, 0 Refills, Maintenance, 09/29/22 13:10:00 EDT, Capsule, [facility], Partial fill upon patient request [...] 0 Refills, Maintenance, 09/29/22 13:10:00 EDT, Syrup, [facility], Partial fill upon patient request [...] 09/29/22 13:10:00 EDT, Route to Pharmacy Electronically, [facility], Partial fill uponpatient request if the [...] 09/29/22 13:10:00 EDT, Route to Pharmacy Electronically, [facility], Partial fill upon patient request [...] 0 Refills, Maintenance, 09/29/22 13:10:00 EDT, Tablet, [facility], Partial fill upon patient request [...] 09/29/22 13:10:00 EDT, Route to Pharmacy Electronically, [facility], Partial fill upon patient request [...] Care Nurse Name: Kendra Ayala RN Position: [facility] RN Member Role: Primary Care Nurse Name: Tanya Howell RN Position: [facility] RN Member Role: Primary Care Nurse Name: Dayanara Porter RN Position: [facility] RN Member Role: Primary Care Nurse Name: Dl Gibson RN Position: [facility] RN Member Role: Primary Care Nurse Name: Not on Staff, PCP Position: [facility] Physician (General Medicine) Member Role: PCP Name: Sharri Sosa RN Position: [facility] RN Member Role: Primary Care Nurse Name: Cristofer Augustine Position: [facility] RN Member Role: Primary Care Nurse Name: Rola Whittaker RN Position: [facility] RN Member Role: Primary Care Nurse Name: Estelita Sigala RN Position: [facility] RN Member Role: Primary Care Nurse Name: Brianne Gamboa RN Position: [facility] RN Member Role: Primary Care Nurse Care Team Related Persons Name: COLE DIXON Address: [address] [address]
--- OUTSIDE RECORDS SUMMARY | 2023-03-29 02:37 | XMS_ITS | Continuity of Care Document ---
Author Name Unknown Organization [facility] Neurology Address [address], [address], [address] [place] [id number]- Care Team Providers Care Outboard System Operator Name Role Phone Not on Staff, PCP Primary Care Physician Unavail able [facility]counter [facility] Date[facility]s): 01/10/23 - 02/09/23 [facility] [address], [address], [address] [place] [id number] Allergies, Adverse Reactions, Alerts Substance Reaction Severity Status Cats Active Pollen Active Immunizations Given and Recorded Vaccine Date Status Refusal Reason SARS-CoV-2 (COVID-19) Ad26 vaccine 1 12/22/20 Give n SARS-CoV-2 (COVID-19) Ad26 vaccine 12/22/20 Record ed tetanus/diphtheria/pertussis, acel(Tdap) 10/20/20 Given 1? Unknown: Resend to [facility]. Problem List Condition Confirmation Course Effective Dates [...] Care Nurse Name: Dayanara Porter RN Position: [facility] RN Member Role: Primary Care Nurse Name: Dl Gibson RN Position: [facility] RN Member Role: Primary Care Nurse Name: Not on Staff, PCP Position: [facility] Physician (General Medicine) Member Role: PCP Name: Sharri Sosa RN Position: [facility] RN Member Role: Primary Care Nurse Name: Cristofer Augustine Position: [facility] RN Member Role: Primary Care Nurse Name: Rola Whittaker RN Position: [facility] RN Member Role: Primary Care Nurse Name: Sonam Morales RN Position: [facility] RN Member Role: Primary Care Nurse Name: Estelita Sigala RN Position: [facility] RN Member Role: Primary Care Nurse Name: Brianne Gamboa RN Position: [facility] RN Member Role: Primary Care Nurse Care Team Related Persons Name: COLE DIXON Address: [address] [address]
--- OUTSIDE RECORDS SUMMARY | 2023-03-29 02:37 | XMS_ITS | Continuity of Care Document ---
Author Name Unknown Organization [facility] Address [address] [place] [address] [address]ah frausto, [address] [place] [address]- Care Team Providers Care Information Assurance Name Role Phone Not on Staff, PCP Primary Care Physician Unavail able [facility]counter [facility] Date[facility]s): 11/22/22 - 12/22/22 [facility] Surgery [address] [place] [address], [address] [place], [place] [address] Attending Physician: Massimo Ram Admitting Physician: AdmtrMassimo Referring Physician: Admtr, Ar8 Allergies, Adverse Reactions, Alerts Substance Reaction Severity Status Cats Active Pollen Active Immunizations Given and Recorded Vaccine Date Status Refusal Reason SARS-CoV-2 (COVID-19) Ad26 vaccine 1 12/22/20 Give n SARS-CoV-2 (COVID-19) Ad26 vaccine 12/22/20 Record ed tetanus/diphtheria/pertussis, acel(Tdap) 10/20/20 Given 1? Unknown: Resend to [facility]. Medications acetaminophen 325 mg oral tablet 650 mg, 2, tablet, By Mouth, Every 6 hours, Refills 0, Maintenance, 10/23/22 15:49:00 EDT, Partial fill upon patient request if the prescription is for a schedule II opioid drug. Start Date: 10/23/22 Status: Ordered aspirin 81 mg oral capsule = 81 mg, By Mouth, Daily, # 30 capsule, 0 Refills, Maintenance, 09/29/22 13:10:00 EDT, Capsule, [facility], Partial fill upon [...] 0 Refills, Maintenance, 09/29/22 13:10:00 EDT, Syrup, [facility], Partial fill upon [...] 09/29/22 13:10:00 EDT, Route to Pharmacy Electronically, [facility], Partial fill uponpatient [...] 09/29/22 13:10:00 EDT, Route to Pharmacy Electronically, [facility], Partial fill upon [...] 0 Refills, Maintenance, 09/29/22 13:10:00 EDT, Tablet, [facility], Partial fill upon patient request if [...] 09/29/22 13:10:00 EDT, Route to Pharmacy Electronically, [facility], Partial fill upon [...] Care Nurse Name: Tanya Howell RN Position: [facility] RN Member Role: Primary Care Nurse Name: Dayanara Porter RN Position: [facility] RN Member Role: Primary Care Nurse Name: Dl Gibson RN Position: [facility] RN Member Role: Primary Care Nurse Name: Not on Staff, PCP Position: [facility] Physician (General Medicine) Member Role: PCP Name: Sharri Sosa RN Position: [facility] RN Member Role: Primary Care Nurse Name: Cristofer Augustine Position: [facility] RN Member Role: Primary Care Nurse Name: Rola Whittaker RN Position: [facility] RN Member Role: Primary Care Nurse Name: Estelita Sigala RN Position: [facility] RN Member Role: Primary Care Nurse Name: Brianne Gamboa RN Position: [facility] RN Member Role: Primary Care Nurse Care Team Related Persons Name: COLE DIXON Address: [address] [address]
--- OUTSIDE RECORDS SUMMARY | 2023-03-29 02:37 | XMS_ITS | Continuity of Care Document ---
Author Name Unknown Organization [facility] Address [address] [place] [address] [address]ah frausto, [address] [place] [address]- Care Team Providers Care Script Developer Name Role Phone Not on Staff, PCP Primary Care Physician Unavail able Encounter [facility] Date(s): 09/27/22 - 11/11/22 [facility] [address] [place] [address] Drive, [address] [place] [address]- Attending Physician: Shanon Osman MD Referring Physician: Heather Garcia Allergies, Adverse Reactions, Alerts Substance Reaction Severity Status Cats Active Pollen Active Immunizations Given and Recorded Vaccine Date Status Refusal Reason SARS-CoV-2 (COVID-19) Ad26 vaccine 1 12/22/20 Give n SARS-CoV-2 (COVID-19) Ad26 vaccine 12/22/20 Record ed tetanus/diphtheria/pertussis, acel(Tdap) 10/20/20 Given 1? Unknown: Resend to [facility]. Medications acetaminophen 325 mg oral tablet 650 mg, 2, tablet, By Mouth, Every 6 hours, Refills 0, Maintenance, 10/23/22 15:49:00 EDT, Partial fill upon patient request if the prescription is for a schedule II opioid drug. Start Date: 10/23/22 Status: Ordered aspirin 81 mg oral capsule = 81 mg, By Mouth, Daily, # 30 capsule, 0 Refills, Maintenance, 09/29/22 13:10:00 EDT, Capsule, [facility], Partial fill upon patient [...] 0 Refills, Maintenance, 09/29/22 13:10:00 EDT, Syrup, [facility], Partial fill upon patient request if the prescription is for a schedule II opioid drug., 162, cm, 09/29/22 11:15:00 EDT, Height, 65,... Start Date: 09/29/22 Stop Date: 10/09/22 Status: Ordered docusate sodium 100 mg oral capsule 100 mg, 1, capsule, By Mouth, 2 times a day, # 28 capsule, Refills 0, Tot. Refills 0, Maintenance, 09/29/22 13:10:00 EDT, Route to Pharmacy Electronically, [facility], Partial fill uponpatient request [...] 09/29/22 13:10:00 EDT, Route to Pharmacy Electronically, [facility], Partial fill upon patient [...] 0 Refills, Maintenance, 09/29/22 13:10:00 EDT, Tablet, [facility], Partial fill upon patient [...] 09/29/22 13:10:00 EDT, Route to Pharmacy Electronically, [facility], Partial fill upon patient [...] Team Personnel Name: Nicole Sweeney RN Position: [facility] RN Member Role: Primary Care Nurse Name: Heather Keyes Position: [facility] RN Member Role: Primary Care Nurse Name: Eri Velasquez Position: [facility] RN Member Role: Primary Care Nurse Name: Kendra Ayala RN Position: [facility] RN Member Role: Primary Care Nurse Name: Tanya Howell RN Position: [facility] RN Member Role: Primary Care Nurse Name: Dayanara Porter RN Position: [facility] RN Member Role: Primary Care Nurse Name: Dl Gibson RN Position: [facility] RN Member Role: Primary Care Nurse Name: Not on Staff, PCP Position: [facility] Physician (General Medicine) Member Role: PCP Name: Sharri Sosa RN Position: [facility] RN Member Role: Primary Care Nurse Name: Cristofer Augustine Position: [facility] RN Member Role: Primary Care Nurse Name: Rola Whittaker RN Position: [facility] RN Member Role: Primary Care Nurse Name: Estelita Sigala RN Position: [facility] RN Member Role: Primary Care Nurse Name: Brianne Gamboa RN Position: [facility] RN Member Role: Primary Care Nurse Care Team Related Persons Name: COLE DIXON Address: [address] [address]
--- NOTE | 2023-03-29 02:55 | ED_ITS ---
HPI - General Adult General Chief complaint: Upper Respiratory Symptoms Stated complaint: SoB, flu like symptoms Time Seen by Provider: 03/29/23 02:19 Source: patient Mode of arrival: ambulatory History of Present Illness HPI narrative: 62-year-old male who is an everyday smoker as well as consuming alcohol presents for chronic cough as well as productive cough for the past month but according to the triage note he reported epistaxis to bilateral nostrils but made no mention during my interview. He denies any nausea, vomiting, fever, chills. Related Data Home Medications Medication Instructions Recorded Confirmed clonidine HCl 0.1 mg tablet 0.1 mg PO TID 03/29/23 03/29/23 hydroxyzine HCl 25 mg tablet 25 mg PO QID 03/29/23 03/29/23 naltrexone 50 mg tablet 50 mg PO DAILY 03/29/23 03/29/23 trazodone 50 mg tablet 100 mg PO BEDTIME PRN Insomnia 03/29/23 03/29/23 Allergies Allergy/AdvReac Type Severity Reaction Status Date / Time acetaminophen [From Percocet] AdvReac Fatigued Verified 03/29/23 01:34 oxycodone [From Percocet] AdvReac Fatigued Verified 03/29/23 01:34 Review of Systems Review of Systems: Pertinent positives and negatives as stated in HPI PMFSH Past Medical History Source: nursing notes reviewed Social History Social History Smoked in Last 30 Days: Yes Use of substances other than those prescribed or required for medical reasons: No Advance Directives: No Advance Directives Information Provided: Yes Physical Exam ED Vital Signs: Vital Signs - 24 hr 03/29/23 01:36 03/29/23 02:02 03/29/23 02:17 Temperature 98.0 F 98.3 F Pulse Rate 114 H 92 Respiratory Rate 20 17 Blood Pressure 147/89 H 130/83 Pulse Oximetry 96 97 98 Oxygen Delivery Method Room Air Room Air Room Air BMI result Body Mass Index 27.3 VITAL SIGNS: Reviewed. GENERAL: appears older than stated age, well nourished, in no acute distress. HEAD: Normocephalic/atraumatic EYES: PERRLA, EOMI EARS: Ext canals without abnormality, TMs non-bulging and non-erythematous NOSE: Nares patent bilateral OROPHARYNX: no oral lesions noted, posterior pharynx clear and non-erythematous without noted tonsillar enlargement/erythema/exudates NECK: Supple, no adenopathy LUNGS: Normal breath sounds. No adventitious sounds or accessory muscle use. SpO2<98> CARDIOVASCULAR: Regular rate and rhythm without noted murmurs ABDOMEN: Soft, non-tender, non-distended with bowel sounds. MUSCULOSKELETAL: No tenderness, deformities, or effusions noted on gross inspection. EXTREMITIES: No cyanosis, clubbing or edema. SKIN: Inspection of the skin reveals no rashes NEUROLOGIC: Alert and oriented x 4. Strength and sensation to light touch were grossly intact x 4. Medical Decision Making Medical Decision Making [facility] Narrative: 62-year-old male with history and clinical presentation, DDX: Bronchitis, pneumonia, viral illness Reviewed all investigations and COVID-19 testing is negative. Chest x-ray negative for infiltrate and otherwise my interpretation is in agreement with radiology's impression. He is otherwise oxygenating well on room air, he is not tachypneic nor is he tachycardic at this time will despite being mildly tachycardic on initial arrival. Patient also remains afebrile. My interpretation is for viral bronchitis and patient was discharged and recommended to follow-up with his primary care doctor. Differential Diagnosis Differential Diagnoses: The differential diagnosis associated with the presentation includes please see the discussion above Admission/Observation Consideration of admission/observation: Escalation of care including admission/observation considered please see the discussion above Lab Data [facility] Lab Attestation statement: I reviewed the patient's lab results. Please see the discussion above Labs: Lab Results 03/29/23 Range/Units 01:46 COVID-19 (ELISEO) Negative (Negative) COVID-19 Clin Com See Note Radiology Impression Discussion of test interpretation with radiology: I have reviewed the radiologist's reading. Radiologist Impression: please see the discussion above Discharge Plan Discharge Clinical Impression: Bronchitis Patient Disposition: Home, Self-Care Instructions: Chronic Bronchitis (ED) Additional Instructions: 1. Complete the short course of steroids as prescribed. 2. Resume all home medications as prescribed. 3. Please follow-up with your primary care doctor. Return to the ER for worsening symptoms. Prescriptions: No Action clonidine HCl 0.1 mg tablet 0.1 mg PO TID trazodone 50 mg tablet 100 mg PO BEDTIME PRN (Reason: Insomnia) naltrexone 50 mg tablet 50 mg PO DAILY hydroxyzine HCl 25 mg tablet 25 mg PO QID
[2023-03-29] MEDS: predniSONE 10 MG TABLET 50 MG PO (03:44)
--- NOTE | 2023-03-29 03:53 | PC.NURSE ---
pt a&o, medicated per Jul, reviewed discharge instructions, pt verbalized understanding.
[2023-03-29 03:55] VITALS: BP 129/75; PULSE 77; RESP 16; TEMP 36.7; O2SAT 95
== END 2023-03-29 04:01 | disposition home or self-care (01) ==
PROVIDERS: Emergency Provider Student in an Organized Health Care Education/Training Program
DX: J40 Bronchitis, not specified as acute or chronic (principal); R06.02 Shortness of breath; R05.9 Cough, unspecified; Z11.52 Encounter for screening for COVID-19; Z20.822 Contact with and (suspected) exposure to COVID-19
CPT/HCPCS: 71046; 87635; 99283; 99284

== ENCOUNTER 2023-07-03 14:35 | Emergency (ER) | payer OTHER, SELFPAY ==
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
[2023-07-03 15:30] VITALS: BP 151/84; PULSE 79; RESP 18; TEMP 36.6; O2SAT 100; BMI 28.2
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
--- OUTSIDE RECORDS SUMMARY | 2023-07-03 18:38 | XMS_ITS | Continuity of Care Document ---
Author Name Unknown Organization [facility] ter Address [address] [place] [id number]- Care Team Providers [employer] Name Role Phone Not on Staff, PCP Primary Care Physician Unavail able Encounter [facility] Date(s): 05/28/23 - 05/28/[address] [address]- Discharge Disposition: A-D/C Home Attending Physician: Johnnie Eagle MD Admitting Physician: Johnnie Eagle MD Referring Physician: Not on Staff, Referring MD Allergies, Adverse Reactions, Alerts Substance Reaction Severity Status Percocet Active Cats Active Pollen Active Immunizations Given and Recorded Vaccine Date Status Refusal Reason SARS-CoV-2 (COVID-19) Ad26 vaccine 1 12/22/20 Give n SARS-CoV-2 (COVID-19) Ad26 vaccine 12/22/20 Record ed tetanus/diphtheria/pertussis, acel(Tdap) 10/20/20 Given 1? Unknown: Resend to [facility]. Problem List Condition Confirmation Course Effective Dates Status H ealth Status Informant Alcohol dependence with withdrawal Confirmed Active Intraparenchymal hemorrhage of brain Confirmed Active Epididymitis Confirmed Active Subdural hematoma Confirmed Active Hypertension Confirmed Active Nicotine dependence Confirmed Active Scrotal pain Confirmed Active Frequent falls Confirmed Active Results Radiology Reports * Exam Date Time Procedure Performing Provider Status 05/28/23 2:[address] Abd/Pelvis W/ IV Contrast Only Sanc hes , Annita; Auth (Verified) Notes: (CT Abd/Pelvis W/ IV Contrast Only) Reason For Exam: LLQ abdominal pain;Other: RESULT: CT Abd/Pelvis W/ IV Contrast Only CT Abd/Pelvis W/ IV Contrast Only Hx of Present Illness: pt constipated. pt states he hasn't been able to have a bowel movement sinces 05 26 2022 in the afternoon. pt c o lower abd pressure. Pt able to passing, tolerating PO.denies N V D, denies CP+SOB; Reason: Other:; LLQ abdominal pain; Clinical Question(s): Obstruction; Order Comment: TECHNIQUE: Spiral CT through the abdomen and pelvis with IV contrast formatted in 3 planes. 100 cc of Omnipaque 300 was administered intravenously. This study was performed without oral contrast. Weight-based protocol using automatic tube modulation was used to optimize exposure parameters. CTDIvol Body: 17.20 mGy, DLP Body: 901 mGy*cm. COMPARISON: CT of the chest, abdomen, and pelvis dated October 04, 2022. FINDINGS: [place] Findings, Lines and Tubes: None. Visualized Chest: 8 mm nodular density in the lingula (series 201 image 4), obscured by atelectasis/consolidation on recent prior CTs but new from September 18, 2022. Small subpleural nodule in the posterolateral left lower lobe (series 21 image 13). No pleural or pericardial effusion. Diaphragm: Normal. Liver: Punctate hypodensity in the subdiaphragmatic portion of segment 4A/8, too small to fully characterize, likely a simple cyst. Liver is otherwise unremarkable. Gallbladder: No CT evidence of gallbladder pathology. Bile ducts: No biliary ductal dilation. Spleen: Normal. Pancreas: Normal. Adrenal glands: Normal. Kidneys and ureters: No hydronephrosis, stones, or suspicious masses. Bladder: Partially distended bladder with mild resultant wall thickening. Reproductive organs: Unremarkable. Stomach, small bowel, and large bowel: The stomach is decompressed, limiting assessment. Small bowel loops are normal in course and caliber without evidence of obstruction. Small bowel contents are fecalized, a nonspecific finding that can be seen in the setting of slow small bowel transit, reflux across the ileocecal valve, or small intestinal bacterial or fungal overgrowth. Cecum is located medially within the upper pelvis, with the terminal ileum inserting along the lateral margin. Mild to moderate stool burden within the colon, with a moderate stool ball in the low rectum with mild adjacent stranding (series 201 image 105). Appendix: Normal. Peritoneum and retroperitoneum: No ascites or pneumoperitoneum. No omental or mesenteric lesions. Lymph nodes: No enlarged lymph nodes. Blood vessels: Mild vascular calcifications but no aneurysm. No evidence of venous thrombosis. Prominent splenorenal communication. Abdominal and pelvic wall: Stranding overlying the greater trochanters bilaterally, representing either edema or sequela of prior instrumentation. Small fat-containing umbilical hernia. Bones: No acute abnormality. Mild degenerative changes throughout the spine. Chronic healed rib fractures are noted bilaterally. IMPRESSION: 1. Distal rectal stool ball with mild adjacent stranding, suggestive of mild stercoral colitis. 2. 8 mm lingular nodule, not definitely seen on prior CTs, possibly reactive lymph node or residualconsolidation given changes seen previously. Follow-up chest CT in 3 months is recommended. 3. Medially positioned cecum, which may indicate incomplete retroperitonealization and predispose to volvulus. No evidence of obstruction or acute inflammation. WSN: [id number] Ordering Physician: Johnnie Eagle Dictated By: Hugo Avelar MD Dictated Date/Time: 05/28/23 3:35 pm Reviewed By: Hugo Avelar MD Signed By: Hugo Avelar MD Signed Date/Time: 05/28/23 3:35 pm Transcribed By: JACKY Transcribed Date/Time: 05/28/23 3:21 pm Vital Signs Most recent to oldest [Reference Range]: 1 2 3 Weight 73.6 kg (05/28/23 11:36 AM) 73.6 kg (05/28/23 4:32 AM) 73.6 kg (05/28/23 4:28 AM) Oxygen Saturation [94-100 %] 97 % (05/28/23 4:25 PM) 98 % (05/28/23 11:36 AM) 97 % (05/28/23 9:47 AM) Pulse Rate [55-90 bpm] 92 bpm *H* (05/28/23 4:25 PM) 72 bpm (05/28/23 11:36 AM) 74 bpm (05/28/23 9:47 AM) Blood Pressure [90-138/55-84 mm Hg] 132/90mm Hg (05/28/23 4:25 PM) 138/84mm Hg (05/28/23 11:36 AM) 124/75mm Hg (05/28/23 9:47 AM) Respiratory Rate [16-30 br/min] 16 br/min (05/28/23 4:25 PM) 18 br/min (05/28/23 11:36 AM) 18 br/min (05/28/23 4:28 AM) Temperature [96.8-100.4 DegF] 97.7 DegF (05/28/23 4:25 PM) 98.0 DegF (05/28/23 11:36 AM) 97.6 DegF (05/28/23 9:47 AM) Mode of Delivery (Oxygen) Room air (05/28/23 4:25 PM) Room air (05/28/23 11:36 AM) Room air (05/28/23 9:47 AM) Blood pressure sites Arm, left (05/28/23 4:25 PM) Arm, right (05/28/23 11:36 AM) Arm, right (05/28/23 9:47 AM) Temperature Route Oral (05/28/23 4:25 PM) Oral (05/28/23 11:36 AM) Oral (05/28/23 9:47 AM) Dry Weight 73.6 kg (05/28/23 11:36 AM) 73.6 kg (05/28/23 4:32 AM) 73.6 kg (05/28/23 4:28 AM) Social History Social History Type Response Tobacco Use: 2 packs daily.. Sex Note * Renata Diaz: PERFORM Event Display: Patient Education Leaflets Authored Date: [id number] Polyethylene Glycol 3350 Powder For Oral Solution ?? [id number] Polyethylene Glycol 3350 Powder For Oral Solution Brands: ClearLax, Gavilax, GentleLax, HealthyLax, Miralax, PureLax Uses For bowel movement. ?? Instructions Mix the medicine with 4-8 oz. (120-240 mL) of water or juice, then drink. Drink the medicine immediately after mixing. This medicine may be taken with or without food. Keep this medicine at room temperature. Protect from moisture and high humidity. Keep the medicine away from heat and light. Frequent or intermediate card tender use of laxatives can cause your bowels to depend on them. Do not use laxatives for more than one week unless directed by your doctor. To reduce constipation, eat high fiber foods, drink plenty of water and exercise. Tell your doctor and pharmacist about all your medicines. Include prescription and fggg-fch-cvrsfawnuykzozir, vitamins, and herbal medicines. Tell your doctor if symptoms do not get better or if they get worse. ?? Cautions Tell your doctor and pharmacist if you ever had an allergic reaction to a medicine. Do not use the medication any more than instructed. It is unknown if this medicine passes into breast milk. Ask your doctor before . During , this medicine should be used only when clearly needed. Talk to your doctor about the risks and benefits. Do not start or stop any other medicines without first speaking to your doctor or pharmacist. ?? Side Effects The following is a list of some common side effects from this medicine. Please speak with your doctor about what you should do if you experience these or other side effects. ??? bloating ??? diarrhea ??? excess gas ??? nausea ??? stomach upset or abdominal pain Call your doctor or get medical help right away if you notice any of these more serious side effects: ??? severe or persistent abdominal pain ??? severe, watery or bloody diarrhea ??? stomach pain ??? blood in stool A few people may have an allergic reaction to this medicine. Symptoms can include difficulty breathing, skin rash, itching, swelling, or severe dizziness. If you notice any of these symptoms, seek medical help quickly. ?? Extra Please speak with your doctor, nurse, or pharmacist if you have any questions about this medicine. ?? [email or web address] IMPORTANT NOTE: This document tells you briefly how to take your medicine, but it does not tell youall there is to know about it. Your doctor or pharmacist may give you other documents about your medicine. Please talk to them if you have any questions. Always follow their advice. There is a more complete description of this medicine available in Maltese. Scan this code on your smartphone or tablet or use the web address below. You can also ask your pharmacist for a printout. If you have any questions, please ask your pharmacist. The display and use of this drug information is subject to Terms of Use. Copyright(c) 2022 [employer]. ?? [employer]. All rights reserved. This information is not intended as a substitute for professional medical care. Always follow your healthcare professional's instructions. ?? * Renata Diaz: PERFORM Event Display: Patient Education Leaflets Authored Date: [id number] Constipation (Adult) ?? [id number] Constipation (Adult) Constipation means that you have bowel movements that are less frequent than usual. Stools often become very hard and difficult to pass. Constipation is very common. At some point in life, it affects almost everyone. Since everyone's bowel habits are different, what is constipation to one person may not be to another. Your healthcare provider may do tests to diagnose constipation. It depends on what??they??find when evaluating you. Symptoms of constipation include: ??? Abdominal pain ??? Bloating ??? Vomiting ??? Painful bowel movements ??? Itching, swelling, bleeding, or pain around the anus Causes Constipation can have many causes. These include: ??? Diet low in fiber ??? Too much dairy ??? Not drinking enough liquids ??? Lack of exercise or physical activity (especially true for older adults)??? Changes in lifestyle or daily routine, including , aging, work, and travel ??? Frequent use or misuse of laxatives ??? Ignoring the urge to have a bowel movement or delaying it until later ??? Medicines, such as certain prescription pain medicines, iron supplements, antacids, certain antidepressants, and calcium supplements ??? Diseases like irritable bowel syndrome, bowel obstructions, stroke, diabetes, thyroid disease, Parkinson disease, hemorrhoids, and colon cancer ?? Complications Possible complications of constipation can include: ??? Hemorrhoids ??? Rectal bleeding from hemorrhoids or anal fissures??(skin tears) ??? Hernias ??? Chronic constipation ??? Fecal impaction, a severe form of constipation in which a large amount of hard stool is in your rectum that you can't pass??? Bowel obstruction or perforation ?? Home care All treatment should be done after talking with your healthcare provider. This is especially true if you have another medical problem, are taking prescription medicines, or are an older adult. Treatment most often involves lifestyle changes. You may also need medicines. Your healthcare provider will tell you which will work best for you. Follow the advice below to help avoid this problem in the future. ?? Lifestyle changes These lifestyle changes can help prevent constipation: ??? Diet. Eat a high- fiber diet, with fresh fruit and vegetables, and reduce dairy intake, meats, and processed foods ??? Fluids. It's importantto get enough fluids each day. Drink plenty of water when you eat more fiber. If you are on diet that limits the amount of fluid you can have, talk about this with your healthcare provider. ??? Regular exercise. Check with your healthcare provider first. ?? Medicines Take any medicines as directed. Some laxatives are safe to use only every now and then. Others can be taken on a regular basis. While laxatives don't cause bowel dependence, they are treating the symptoms. So your constipation may return if you don't make other changes. Talk with your healthcare provider or pharmacist if you have questions. Prescription pain medicines can cause constipation. If you are taking this kind of medicine, ask your healthcare provider if you should also take a stool softener. Medicines you may take to treat constipation include: ??? Fiber supplements ??? Stool softeners ???Laxatives ??? Enemas ??? Rectal suppositories ?? Follow-up care Follow up with your healthcare provider if symptoms don't get better in the next few days. You may need to have more tests or see a specialist. ?? Call 911 Call 911 if any of these occur: ??? Trouble breathing ??? Stiff, rigid abdomen that is severely painful to touch ??? Large amount of blood in the stool ??? Confusion ??? Fainting or loss of consciousness ??? Rapid heart rate ??? Chest pain ?? When to seek medical advice Call your healthcare provider right away if any of these occur: ??? Fever of 100.4??F (38??C) or higher, or as directed by your healthcare provider ??? Failure to resume normal bowel movements ??? Pain in your abdomen or back gets worse ??? Nausea or vomiting ??? Swelling in your abdomen ??? Small amount of blood in the stool ??? Black, tarry stool ??? Involuntary weight loss ??? Weakness ?? Last Reviewed Date: 2021 ?? [id number] [employer]. All rights reserved. This information is not intended as a substitute for professional medical care. Always follow your healthcare professional's instructions. ?? Patient Care team information Care Team Personnel Name: Darcy Gonsalves RN Position: S RN Member Role: Primary Care Nurse Name: Nicole Sweeney RN Position: S RN Member Role: Primary Care Nurse Name: Elizabeth Sutherland RN Position: [facility] RN Supv Member Role: Primary Care Nurse Name: CamiloHeather Flores Position: [facility] RN Member Role: Primary Care Nurse Name: Eri Velasquez Position: [facility] RN Member Role: Primary Care Nurse Name: Kendra Ayala RN Position: [facility] RN Member Role: Primary Care Nurse Name: Dayanara Porter RN Position: [facility] RN Member Role: Primary Care Nurse Name: Dl Gibson RN Position: [facility] RN Member Role: Primary Care Nurse Name: Not on Staff, PCP Position: [facility] Physician (General Medicine) Member Role: PCP Name: Sharri Sosa RN Position: [facility] RN Member Role: Primary Care Nurse Name: Cristofer Augustine Position: [facility] RN Member Role: Primary Care Nurse Name: Rola Whittaker RN Position: [facility] RN Member Role: Primary Care Nurse Name: Sonam Morales RN Position: [facility] RN Member Role: Primary Care Nurse Name: Estelita Sigala RN Position: [facility] RN Member Role: Primary Care Nurse Name: Brianne Gamboa RN Position: [facility] RN Member Role: Primary Care Nurse Name: Liz Hernandez RN Position: [facility] ED RN W/OE and Tasks Member Role: Patient Care Provider Name: Cynthia Royal Position: [facility] ED TA DOMO Name: Renata Diaz Position: [facility] Associate Professional Member Role: ED Physician Joint C[employer] Address: Address: [address] [place] [address]- Name: Johnnie Eagle MD Position: [facility] ED Medicine MD Member Role: Admitting Physician Address: Address: [address] [place] [id number]- Care Team Related Persons Name: ATIF, [employer] Address: home [address] [facility] [employer] [address] Name: COLE DIXON Address: home [address] [place] [address]
--- OUTSIDE RECORDS SUMMARY | 2023-07-03 18:38 | XMS_ITS | Continuity of Care Document ---
Author Name Unknown Organization [facility] ter Address [address] [place] [id number]- Care Team Providers Care Radiology Clerk Name Role Phone Not on Staff, PCP Primary Care Physician Unavail able Encounter [facility] Date(s): 04/09/23 - 04/10/[address] [address]- Discharge Disposition: A-D/C Home Attending Physician: Oriana Olguin MD Admitting Physician: Oriana Olguin MD Referring Physician: Not on Staff, Referring [...] Exam Date Time Procedure Performing Provider Status 04/09/23 11:[address] Head/Brain W/O Contrast Abhishek Bradford (Verified) Notes: (CT Head/Brain W/O Contrast) Reason For Exam: Trauma RESULT: CT Head/Brain W/O Contrast CT Cervical Spine W/O Contrast, CT Head/Brain W/O Contrast Hx of Present Illness: pt fell off [place] one month ago, broke neck,ribs and sts he has not felt right since, has some visual issues and sts he keeps falling, fell two weeks ago but does not rmemeber the fall, sts he is dizzy all the time, fells like he has no balance ; Reason: Other:; Neck Pain; Clinical Question(s): Fracture Dislocation; Order Comment: COMPARISON: 02/05/2023 TECHNIQUE: Incremental CT without contrast through the head was formatted in axial and coronal plane. Spiral CT without contrast through the cervical spine was formatted in 3 planes. Automatic tube modulation was used for the cervical spine and iterative dose reconstruction was used for both the head and cervical spine to optimize scan parameters and image quality. CTDIvol Body: 5.60 mGy, DLP Body: 152 mGy*cm. CTDIvol Head: 40.90 mGy, DLP Head: 672 mGy*cm. FINDINGS: Generator Assembler View Findings, Lines and Tubes: None. HEAD: BRAIN and EXTRA-AXIAL SPACES: Thin chronic subdural hematoma along the right frontal and parietal convexity on image 89 series 202 measuring between 4 and 5 mm in thickness, decreased from 7 and 10 mm. No significant mass effect or edema. No acute blood. Stable encephalomalacia within the mesial right frontal lobe. Or old basal ganglia lacunar infarctions. No parenchymal hemorrhage, midline shift or mass effect. David-white matter differentiation is well preserved. No acute infarct. Negative insular ribbon sign. Atherosclerotic vascular calcification ofthe carotid arteries but negative hyperdense vessel sign. Mild prominence of the ventricles and sulci consistent with parenchymal volume loss. Mild periventricular and subcortical low-density white matter changes. No subarachnoid hemorrhage, subdural or epidural collections. CALVARIUM, SKULL BASE AND SOFT TISSUES: No fractures or suspicious bony lesions. The paranasal sinuses and mastoid air cells are clear. Visualized orbits and globes are intact. The extracranial soft tissues are unremarkable. CERVICAL SPINE: No acute fracture or acute malalignment. Chronic fracture involving the posterior inferior corner of the right C4 vertebra best seen on sagittal image 52 series 3 L5 unchanged. Status post ACDF at C4-5. Incomplete incorporation of the bone graft with uncovering of the superior endplate of C5. This is unchanged. Nonspecific straightening of lordosis some of which is due to positioning. No locked or perched facet. Intervertebral discs are normal. OTHER BONES: Normal. CERVICAL SOFT TISSUES AND LUNG APICES: Unremarkable. Clear lung apices. IMPRESSION: Decreasing chronic right frontoparietal subdural hematoma. No acute intracranial blood. No acute cervical fracture or malalignment. Chronic C4 fracture similar to prior. Stable appearance of postsurgical changes. WSN: [id number] Ordering Physician: Jocelyne Hayward Dictated By: Luciano Pandya MD Dictated Date/Time: 04/09/23 11:22 p Reviewed By: Luciano Pandya MD Signed By: Luciano Pandya MD Signed Date/Time: 04/09/23 11:22 pm Transcribed By: CSB Transcribed Date/Time: 04/09/23 11:06 pm * Exam Date Time Procedure Performing Provider Status 04/09/23 11:[address] Cervical Spine W/O Contrast Abhishek Verde; Auth (Verified) Notes: (CT Cervical Spine W/O Contrast) Reason For Exam: Neck Pain;Other: RESULT: CT Cervical Spine W/O Contrast CT Cervical Spine W/O Contrast, CT Head/Brain W/O Contrast Hx of Present Illness: pt fell off [place] one month ago, broke neck,ribs and sts he has not felt right since, has some visual issues and sts he keeps falling, fell two weeks ago but does not rmemeber the fall, sts he is dizzy all the time, fells like he has no balance ; Reason: Other:; Neck Pain; Clinical Question(s): Fracture Dislocation; Order Comment: COMPARISON: 02/05/2023 TECHNIQUE: Incremental CT without contrast through the head was formatted in axial and coronal plane. Spiral CT without contrast through the cervical spine was formatted in 3 planes. Automatic tube modulation was used for the cervical spine and iterative dose reconstruction was used for both the head and cervical spine to optimize scan parameters and image quality. CTDIvol Body: 5.60 mGy, DLP Body: 152 mGy*cm. CTDIvol Head: 40.90 mGy, DLP Head: 672 mGy*cm. FINDINGS: Generator Assembler View Findings, Lines and Tubes: None. HEAD: BRAIN and EXTRA-AXIAL SPACES: Thin chronic subdural hematoma along the right frontal and parietal convexity on image 89 series 202 measuring between 4 and 5 mm in thickness, decreased from 7 and 10 mm. No significant mass effect or edema. No acute blood. Stable encephalomalacia within the mesial right frontal lobe. Or old basal ganglia lacunar infarctions. No parenchymal hemorrhage, midline shift or mass effect. David-white matter differentiation is well preserved. No acute infarct. Negative insular ribbon sign. Atherosclerotic vascular calcification ofthe carotid arteries but negative hyperdense vessel sign. Mild prominence of the ventricles and sulci consistent with parenchymal volume loss. Mild periventricular and subcortical low-density white matter changes. No subarachnoid hemorrhage, subdural or epidural collections. CALVARIUM, SKULL BASE AND SOFT TISSUES: No fractures or suspicious bony lesions. The paranasal sinuses and mastoid air cells are clear. Visualized orbits and globes are intact. The extracranial soft tissues are unremarkable. CERVICAL SPINE: No acute fracture or acute malalignment. Chronic fracture involving the posterior inferior corner of the right C4 vertebra best seen on sagittal image 52 series 3 L5 unchanged. Status post ACDF at C4-5. Incomplete incorporation of the bone graft with uncovering of the superior endplate of C5. This is unchanged. Nonspecific straightening of lordosis some of which is due to positioning. No locked or perched facet. Intervertebral discs are normal. OTHER BONES: Normal. CERVICAL SOFT TISSUES AND LUNG APICES: Unremarkable. Clear lung apices. IMPRESSION: Decreasing chronic right frontoparietal subdural hematoma. No acute intracranial blood. No acute cervical fracture or malalignment. Chronic C4 fracture similar to prior. Stable appearance of postsurgical changes. WSN: [id number] Ordering Physician: Jocelyne Hayward Dictated By: Luciano Pandya MD Dictated Date/Time: 04/09/23 11:22 p Reviewed By: Luicano Pandya MD Signed By: Luciano Pandya MD Signed Date/Time: 04/09/23 11:22 pm Transcribed By: JACKY Transcribed Date/Time: 04/09/23 11:06 pm * Exam Date Time Procedure Performing Provider Status 04/09/23 4:09 PM Chest 2 Views Frontal and Lat Lakeisha Nichols; Otis (Verified) Notes: (Chest 2 Views Frontal and Lat) Reason For Exam: Chest Pain;Other: RESULT: Chest 2 Views Frontal and Lat Chest 2 Views Frontal and Lat Hx of Present Illness: pt fell off [place] one month ago, broke neck,ribs and sts he has not felt right since, has some visual issues and sts he keeps falling, fell two weeks ago but does not rmemeber the fall, sts he is dizzy all the time, fells like he has no balance ; Reason: Other:; Chest Pain; Clinical Question(s): Other: COMPARISON: Multiple prior chest radiographs the most recent dated 10/21/2022. FINDINGS: LINES AND TUBES: None. LUNGS AND PLEURA: The previously described left basilar pleural effusion and underlying atelectasis have completely resolved. Clear lungs. Normal pulmonary vascularity. No pleural effusion. No pneumothorax. HEART, MEDIASTINUM AND JUANCARLOS: Heart is normal in size. Normal mediastinal and hilar contour. BONES AND SOFT TISSUES: No acute abnormality. Multiple healed or healing left-sided rib fractures are seen. A few healed right-sided rib fractures. Healed mid and distal left clavicular fractures. IMPRESSION: No definite acute cardiopulmonary disease is seen. Heating or healed left-sided rib fractures. Healed left clavicular fractures and healed right-sided rib fractures. WSN: [id number] Ordering Physician: Ivan Shrestha Dictated By: Luis Sanabria MD, V Dictated Date/Time: 04/09/23 4:20 pm Reviewed By: Luis Sanabria MD, V Signed By: Luis Sanabria MD, V Signed Date/Time: 04/09/23 4:20 pm Transcribed By: JACKY Transcribed Date/Time: 04/09/23 4:12 pm Vital Signs Most recent to oldest [Reference Range]: 1 2 3 Oxygen Saturation [94-100 %] 97 % (04/10/23 11:42 AM) 94 % (04/10/23 7:58 AM) 93 % *L* (04/10/23 7:01 AM) Pulse Rate [55-90 bpm] 102 bpm *H* (04/10/23 11:42 AM) 84 bpm (04/10/23 7:58 AM) 76 bpm (04/10/23 7:01 AM) Blood Pressure [90-138/55-84 mm Hg] 134/84mm Hg (04/10/23 11:42 AM) 109/73mm Hg (04/10/23 7:58 AM) 115/68mm Hg (04/10/23 7:01 AM) Respiratory Rate [16-30 br/min] 12 br/min *L* (04/10/23 11:42 AM) 16 br/min (04/10/23 7:58 AM) 16 br/min (04/10/23 7:01 AM) Temperature [96.8-100.4 DegF] 98.1 DegF (04/10/23 11:42 AM) 98.6 DegF (04/10/23 7:58 AM) 97.5 DegF (04/10/23 7:01 AM) Mode of Delivery (Oxygen) Room air (04/10/23 11:42 AM) Room air (04/10/23 7:58 AM) Room air (04/10/23 7:01 AM) Blood pressure sites Arm, right (04/10/23 11:42 AM) Arm, left (04/10/23 7:58 AM) Arm, right (04/10/23 7:01 AM) Temperature Route Oral (04/10/23 11:42 AM) Oral (04/10/23 7:58 AM) Oral (04/10/23 7:01 AM) Social History Social History Type Response Tobacco Use: 2 packs daily.. Sex EKG study * Event Display: EKG Authored Date: Note * Liz Hughes NP: PERFORM, SIGN, VERIFY Event Display: Patient Education Handout Authored Date: [id number] * Liz Hughes NP: PERFORM Event Display: Patient Education Leaflets Authored Date: [id number] Falls Prevention Initiative ?? 688 ? Falls Prevention Initiative (F.P.I.)? Your visit to [facility] has alerted us that you are at risk for falling. Based on your responses to our Falls screening questions, you are a candidate for The Falls Prevention Initiative. [facility] Physical Therapy can help improve your strength, balance and walking. Let ushelp you to regain confidence in your mobility to get back to the activities you enjoy. ?? Please contact your primary care provider to obtain a physical therapy order. To make an appointment at any [facility] location, call [phone] (option 3-Rehabilition) ? * Liz Hughes NP: PERFORM Event Display: Patient Education Leaflets Authored Date: [id number] Physical Therapy Referral ?? 250 ?? This page is FOR PRESCRIBERS Only, ? DO NOT GIVE TO THE PATIENT?? Physical Therapy Referral Program for Management of Pain In an effort to reduce narcotic use, some of our ED patients will benefit from a direct referral torab care.?? [facility] will see INSURED patients and has a system in place to avoid sending follow up paperwork to the ED prescribers.? Note: Non-[facility] physical therapy services will probably NOT be able to handle ED generated PT referrals. ?? Patients should still follow up with their PCP as soon as possible regarding their ongoing care. Inform patients that [facility] will discuss insurance when they call.?? Some insurance plans limit the amount of PT a patient can receive each year. ?? Complete the FIRST PAGE of the patient???s referral sheet. [place] or write in diagnosis. M odify the timing for treatment, if needed. List any major precautions (i.e.?? Non-weight bearing limb), if needed. Sign, date and print your name at the bottom. ? Physical Therapy Referral Form Patient Instructions: You are being referred to physical therapy.?? This form is your referral and MUST be brought to your appointment. You need to call to set up your appointment. ?? This form can be used at any [facility] Physical Therapy location.?? A list of locations is attached.?? 1)?? DIAGNOSIS/ICD-10 (ramona one) Cervicalgia: M54.2 ? Strain of muscle, fascia and tendon at neck level: S16.1XXD? Radiculopathy, cervical region: M54.12? Mid back pain: M54.9 ? Low back pain:?? M54.5 Strain of muscle, fascia and tendon of lower back: S39.012D Radiculopathy, lumbosacral region: M54.17 Other:? 2)? [? ]? Evaluate and Treat 2 Times/Week for 4 weeks as needed [? ]?Other: 3)? [? ]? No Precautions [? ]?Precautions: ?? I hereby certify these services as medically necessary for the patient???s plan of care. Physician???s Signature Date Physician Name (printed)? Locations You can call any location below.?? Tell them you were seen in a [facility] Emergency Department and have a referral form.?? Remember to bring your referral form with you to the appointment. [place] Kahn [address]? [place] Curry [address] [address] [facility], [address]? [address] ? [place] Kumar [address]? [place] [address]? [address] ? [place] [address]? [place] [address] [place] [address] Road?[address] [facility] ? [place] [address]? [facility] [address] ? Patient Care team information Care Team Personnel Name: Darcy Gonsalves RN Position: S RN Member Role: Primary Care Nurse Name: Nicole Sweeney RN Position: [facility] RN Member Role: Primary Care Nurse Name: Elizabeth Sutherland RN Position: [facility] RN Supv Member Role: Primary Care Nurse Name: Heather Keyes Position: [facility] RN Member Role: Primary Care Nurse Name: Eri Velasquez Position: [facility] RN Member Role: Primary Care Nurse Name: Kendra Ayala RN Position: [facility] RN Member Role: Primary Care Nurse Name: Dayanara Porter RN Position: [facility] RN Member Role: Primary Care Nurse Name: Dl Gibson RN Position: [facility] RN Member Role: Primary Care Nurse Name: Not on Staff, PCP Position: [facility] Physician (General Medicine) Member Role: PCP Name: Sharri Sosa RN Position: [facility] RN Member Role: Primary Care Nurse Name: Cristofer Augustine Position: [facility] RN Member Role: Primary Care Nurse Name: Rola Whittaker RN Position: [facility] RN Member Role: Primary Care Nurse Name: Sonam Morales RN Position: [facility] RN Member Role: Primary Care Nurse Name: Estelita Sigala RN Position: [facility] RN Member Role: Primary Care Nurse Name: Brianne Gamboa RN Position: [facility] RN Member Role: Primary Care Nurse Name: Rosie Rodriguez RN Position: [facility] ED RN W/OE and Tasks Member Role: Patient Care Provider Name: Liz Hughes NP Position: [facility] Associate Professional Member Role: Nurse Practitioner Address: Address: [address] [place] [address]- Name: Oriana Olguin MD Position: [facility] Resident Member Role: Admitting Physician Address: Address: [address] [place] [address]- Care Team Related Persons Name: MILTON SRIVASTAVA Address: home [address] [place] [address] Name: COLE DIXON Address: home [address] [place] [address]
[2023-07-03 19:30] VITALS: BP 161/99; PULSE 102; O2SAT 94
[2023-07-03] MEDS: Piperacillin Sodium/Tazobactam 3.375 GM in 0.9 % Sodium Chloride 50 ML IV (19:40)
[2023-07-03] MEDS: Morphine Sulfate 4 MG/ML CARTRIDGE IVPUSH (19:40)
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
[2023-07-03 19:56] LABS: COVID-19 Test Negative (Negative); IDNOW Serial# 152EDE1D
[2023-07-03] MEDS: Diphth,Pertus(ACell),Tet Adult 0.5 ML SYRINGE IM (20:16)
--- NOTE | 2023-07-03 20:19 | PC.NURSE ---
pt medicated with tetanus per order
--- NOTE | 2023-07-03 20:31 | PC.NURSE ---
this nurse called report to ekaterina mendez RN
== END 2023-07-03 22:18 | disposition short-term general hospital (02) ==
PROVIDERS: Nurse Practitioner Family; Emergency Provider Emergency Medicine
DX: S02.609A Fracture of mandible, unspecified, initial encounter for closed fracture (principal); S02.2XXA Fracture of nasal bones, initial encounter for closed fracture; S00.01XA Abrasion of scalp, initial encounter; R51.9 Headache, unspecified; M54.2 Cervicalgia; V43.62XA Car passenger injured in collision with other type car in traffic accident, initial encounter; Y93.9 Activity, unspecified; Y92.410 Unspecified street and highway as the place of occurrence of the external cause; Y99.8 Other external cause status; Z79.899 Other long term (current) drug therapy; Z11.52 Encounter for screening for COVID-19; Z23 Encounter for immunization
CPT/HCPCS: 70450; 70486; 72125; 87635; 90471; 90715; 96365; 96375; 99285; J2270; J2543